=== PATIENT | male | born 1965 | race Caucasian/White ===

== ENCOUNTER 2019-04-18 13:15 | Inpatient (IN) | payer OTHER ==
[2019-04-18] MEDS ORDERED: NORMAL SALINE 1000 ML 1,000 ML IV ONE ×2 (14:25→16:19)
[2019-04-18] MEDS ORDERED: ONDANSETRON HCL INJ/PF 4 MG/2 ML SDV IV ONE (14:26)
--- NOTE | 2019-04-18 14:29 | ER Document Report ---
ED Medical Screen (RME) - General Chief Complaint: High Blood Sugar Stated Complaint: NAUSEA Time Seen by Provider: 04/18/19 14:23 Mode of Arrival: Ambulatory Information source: Patient Notes: 53-year-old male presented to ED for elevated blood sugar nausea and vomiting dizziness sleeplessness. He went to the urgent care at the blood sugar at that time was 320 with ketones in his urine of 80 and sugar in his urine 500. He states he has been nausea and vomiting not keeping anything down and is been sleepless for several days. Patient was sent over here by the urgent care for his elevated blood sugar. Will order labs IV fluids and monitoring. I have greeted and performed a rapid initial assessment of this patient. A comprehensive ED assessment and evaluation of the patient, analysis of test results and completion of medical decision making process will be conducted by an additional ED providers. Physical Exam - Vital signs Vitals: Temp Pulse Resp BP Pulse Ox 97.8 F 109 H 18 157/92 H 96 04/18/19 13:45 04/18/19 13:45 04/18/19 13:45 04/18/19 13:45 04/18/19 13:45 Course - Vital Signs Vital signs: Temp Pulse Resp BP Pulse Ox 97.8 F 109 H 18 157/92 H 96 04/18/19 13:45 04/18/19 13:45 04/18/19 13:45 04/18/19 13:45 04/18/19 13:45
[2019-04-18 15:07] LABS: VENOUS BLOOD BASE EXCESS -1.7 mmol/L; VENOUS BLOOD PCO2 49.5 mmHg (35-63); VENOUS BLOOD PH 7.32 (7.30-7.42)
[2019-04-18 15:09] LABS: APPEARANCE,URINE CLEAR; BILIRUBIN,URINE NEGATIVE (NEGATIVE); COLOR,URINE YELLOW; GLUCOSE, URINE >=500 mg/dL (NEGATIVE); KETONES,URINE 80 mg/dL (NEGATIVE); LEUKOCYTE ESTERASE,URINE NEGATIVE (NEGATIVE); NITRITE,URINE NEGATIVE (NEGATIVE); PROTEIN,URINE NEGATIVE (NEGATIVE); URINE SPECIFIC GRAVITY 1.028; UROBILINOGEN,URINE NEGATIVE mg/dL (<2.0)
--- NOTE | 2019-04-18 15:16 | ER Document Report ---
ED General <NICK MENSAH Umer - Last Filed: 04/18/19 18:30> - General Mode of Arrival: Ambulatory Information source: Patient TRAVEL OUTSIDE OF THE [place] IN LAST 30 DAYS: No - HPI Onset: Other Onset/Duration: Persistent Quality of pain: Achy, Pressure Associated symptoms: Headache, Nausea, Vomiting, Shortness of breath Exacerbated by: Denies Relieved by: Denies Similar symptoms previously: Yes Recently seen / treated by doctor: Yes <KELLY CAZARES - Last Filed: 04/18/19 19:04> - General Chief Complaint: High Blood Sugar Stated Complaint: NAUSEA Time Seen by Provider: 04/18/19 14:23 Primary Care Provider: GIULIANA KRUEGER MD [Primary Care Provider] - Follow up as needed Notes: 53-year-old male with history of diabetes presents emergency department with complaints of nausea and vomiting for the past 4 days. He gives history of approximately 6 weeks ago his left shoulder started hurting he is been to the chiropractor and now is having some back pain. He also reports that around he started having a migraine. He reports he has been having trouble sleeping been taking 4 Tylenol PM's at night trying to go to sleep. C/O some constipation even though he has done an enema and stool softener. Complains of urinary frequency complains of feeling dizzy and at times short of breath. Reports he has a history of DKA once but was never admitted for it. (KELLY CAZARES) - Related Data Allergies/Adverse Reactions: No Known Allergies Allergy (Verified 04/18/19 18:20) Past Medical History - General Information source: Patient - Social History Smoking Status: Current Every Day Smoker Cigarette use (# per day): Yes Frequency of alcohol use: None Drug Abuse: None Lives with: Family Family History: DM Patient has suicidal ideation: No Patient has homicidal ideation: No Endocrine Medical History: Reports: Hx Diabetes Mellitus Type 2 Past Surgical History: Reports: Hx Orthopedic Surgery <KELLY CAZARES - Last Filed: 04/18/19 19:04> Review of Systems <KELLY CAZARES - Last Filed: 04/18/19 19:04> - Review of Systems Notes: Review HPI for review of systems., All other systems negative (KELLY CAZARES) Physical Exam - General General appearance: Alert In distress: None - HEENT Head: Normocephalic Eyes: Normal Conjunctiva: Normal Extraocular movements intact: Yes Eyelashes: Normal Pupils: PERRL Ears: Normal External canal: Normal Tympanic membrane: Normal Mouth/Lips: Normal Mucous membranes: Dry Pharynx: Normal. No: Erythema Neck: Normal, Supple. No: Lymphadenopathy - Respiratory Respiratory status: No respiratory distress Chest status: Nontender Breath sounds: Normal Chest palpation: Normal - Cardiovascular Rhythm: Regular Heart sounds: Normal auscultation Murmur: No - Abdominal Inspection: Normal Distension: No distension Bowel sounds: Hypoactive Tenderness: Tender - low abd pain Organomegaly: No organomegaly - Extremities General upper extremity: Normal ROM General lower extremity: Normal ROM - Neurological Neuro grossly intact: Yes Cognition: Normal Orientation: AAOx4 Sandi Coma Scale Eye Opening: Spontaneous [place] Coma Scale Verbal: Oriented [place] Coma Scale Motor: Obeys Commands [place] Coma Scale Total: 15 Speech: Normal - Psychological Associated symptoms: Normal affect, Normal mood - Skin Skin Temperature: Warm Skin Moisture: Dry Skin Color: Normal <KELLY CAZARES - Last Filed: 04/18/19 19:04> - Vital signs Vitals: Temp Pulse Resp BP Pulse Ox 97.8 F 109 H 18 157/92 H 96 04/18/19 13:45 04/18/19 13:45 04/18/19 13:45 04/18/19 13:45 04/18/19 13:45 Course - Laboratory Result Diagrams: 04/18/19 14:55 04/18/19 14:55 <NICK MENSAH - Last Filed: 04/18/19 18:30> - Laboratory Result Diagrams: 04/18/19 14:55 04/18/19 14:55 - EKG Interpretation by Co EKG shows normal: Sinus rhythm Rate: Tachycardia <KELLY CAZARES - Last Filed: 04/18/19 19:04> - Re-evaluation Re-evalutation: 04/18/19 18:45 53 YEAR OLD male with history of DM presents with c/o shoulder, back pain, headache for several weeks with n/v and lower abdominal painfor the past 4 days. He was seen at urgent care today for dizzines, elevated glucose, n/v, advised to come to the ED. Pt's pcp is giuliana Krueger at [place]. . Leukocytosis at 15.5 with calcium 13.7, consulted dr mathews who advised lasix, added lipase, CT. Consulted hospitalist shae segura for admission for hypercalc emia. He advised hold lasix at this time. He will come to the ED. Pt updated regarding plan of care, he agree's with admission. Also reports his headache decreasing since medications. 04/18/19 19:02 04/18/19 14:55 04/18/19 14:55 MCV 90 fl (80-97) 04/18/19 14:55 MCH 30.1 pg (27.0-33.4) 04/18/19 14:55 MCHC 33.6 g/dL (32.0-36.0) 04/18/19 14:55 RDW 14.9 % (11.5-14.0) H 04/18/19 14:55 Seg Neutrophils % 87.0 % (42-78) H 04/18/19 14:55 VBG pH 7.32 (7.30-7.42) 04/18/19 14:55 VBG pCO2 49.5 mmHg (35-63) 04/18/19 14:55 VBG HCO3 25.0 mmol/L (20-32) 04/18/19 14:55 VBG Base Excess -1.7 mmol/L 04/18/19 14:55 Chloride 97 mmol/L (98-107) L 04/18/19 14:55 Carbon Dioxide 26 mmol/L (22-30) 04/18/19 14:55 Anion Gap 16 (5-19) 04/18/19 14:55 Est GFR ( Amer) > 60 (>60) 04/18/19 14:55 Glucose 303 mg/dL (75-110) H 04/18/19 14:55 Calcium 13.7 mg/dL (8.4-10.2) H* 04/18/19 14:55 Total Bilirubin 2.3 mg/dL (0.2-1.3) H 04/18/19 14:55 AST 54 U/L (17-59) 04/18/19 14:55 Alkaline Phosphatase 129 U/L (38-126) H 04/18/19 14:55 Total Protein 8.3 g/dL (6.3-8.2) H 04/18/19 14:55 Albumin 4.5 g/dL (3.5-5.0) 04/18/19 14:55 Lipase 116.7 U/L (23-300) 04/18/19 13:11 Urine Color YELLOW 04/18/19 14:55 Urine Appearance CLEAR 04/18/19 14:55 Urine pH 5.0 (5.0-9.0) 04/18/19 14:55 Ur Specific [place] 1.028 04/18/19 14:55 Urine Protein NEGATIVE mg/dL (NEGATIVE) 04/18/19 14:55 Urine Glucose (UA) >=500 mg/dL (NEGATIVE) H 04/18/19 14:55 Urine Ketones 80 mg/dL (NEGATIVE) H 04/18/19 14:55 Urine Blood NEGATIVE (NEGATIVE) 04/18/19 14:55 Urine Nitrite NEGATIVE (NEGATIVE) 04/18/19 14:55 Ur Leukocyte Esterase NEGATIVE (NEGATIVE) 04/18/19 14:55 Urine WBC (Auto) 1 /HPF 04/18/19 14:55 Urine RBC (Auto) 0 /HPF 04/18/19 14:55 04/18/19 14:55 Troponin I 0.025 (KELLY CAZARES) - Vital Signs Vital signs: Temp Pulse Resp BP Pulse Ox 97.8 F 109 H 24 H 157/92 H 95 04/18/19 16:00 04/18/19 13:45 04/18/19 18:00 04/18/19 13:45 04/18/19 18:00 - Laboratory Laboratory results interpreted by me: 04/18/19 04/18/19 04/18/19 14:47 14:55 14:55 WBC 15.0 H RDW 14.9 H Lymph % (Auto) 8.9 L Absolute Neuts (auto) 13.1 H Seg Neutrophils % 87.0 H Chloride 97 L Glucose 303 H POC Glucose 298 H Calcium 13.7 H* Total Bilirubin 2.3 H Direct Bilirubin 1.2 H Alkaline Phosphatase 129 H Total Protein 8.3 H Urine Glucose (UA) Urine Ketones 04/18/19 04/18/19 14:55 18:00 WBC RDW Lymph % (Auto) Absolute Neuts (auto) Seg Neutrophils % Chloride Glucose POC Glucose 205 H Calcium Total Bilirubin Direct Bilirubin Alkaline Phosphatase Total Protein Urine Glucose (UA) >=500 H Urine Ketones 80 H - EKG Interpretation by Me Additional EKG results interpreted by me: 04/18/19 15:[address] elevation no T wave inversion (KELLY CAZARES) Discharge - Discharge Admitting Provider: Esther (Hospitalist) Unit Admitted: [facility] <NICK MENSAH - Last Filed: 04/18/19 18:30> - Discharge Admitting Provider: Esther (Hospitalist) Unit Admitted: [facility] <KELLY CAZARES - Last Filed: 04/18/19 19:04> - Discharge Clinical Impression: Hypercalcemia Condition: Stable Disposition: ADMITTED INPATIENT Referrals: GIULIANA KRUEGER MD [Primary Care Provider] - Follow up as needed
[2019-04-18 15:24] LABS: ALBUMIN 4.5 g/dL (3.5-5.0); ALKALINE PHOSPHATASE 129 U/L (38-126); ANION GAP 16 (5-19); ASPARTATE AMINO TRANSFERASE 54 U/L (17-59); BILIRUBIN,DIRECT 1.2 mg/dL (0.0-0.4); BILIRUBIN,TOTAL 2.3 mg/dL (0.2-1.3); BLOOD UREA NITROGEN 18 mg/dL (7-20); CARBON DIOXIDE 26 mmol/L (22-30); CHLORIDE 97 mmol/L (98-107); GLUCOSE 303 mg/dL (75-110); POTASSIUM 4.9 mmol/L (3.6-5.0); TOTAL PROTEIN 8.3 g/dL (6.3-8.2)
[2019-04-18 15:27] LABS: ABSOLUTE BASOPHILS # (AUTO) 0.1 10^3/uL (0.0-0.2); ABSOLUTE LYMPHOCYTES (AUTO) 1.3 10^3/uL (0.5-4.7); ABSOLUTE MONOCYTES (AUTO) 0.5 10^3/uL (0.1-1.4); ABSOLUTE NEUT (AUTO) 13.1 10^3/uL (1.7-8.2); BASOPHILS % (AUTO) 0.4 % (0-2); EOSINOPHILS % (AUTO) 0.1 % (0-6); HEMATOCRIT 45.3 % (37.9-51.0); HEMOGLOBIN 15.2 g/dL (13.5-17.0); LYMPHOCYTES % (AUTO) 8.9 % (13-45); MEAN CORPUSCULAR HEMOGLOBIN 30.1 pg (27.0-33.4); MEAN CORPUSCULAR HGB CONC 33.6 g/dL (32.0-36.0); MEAN CORPUSCULAR VOLUME 90 fl (80-97); MONOCYTES % (AUTO) 3.6 % (3-13); PLATELET COUNT 270 10^3/uL (150-450); RED BLOOD COUNT 5.05 10^6/uL (4.35-5.55); RED CELL DISTRIBUTION WIDTH 14.9 % (11.5-14.0); TOTAL CELLS COUNTED % (AUTO) 100 %
[2019-04-18 15:33] LABS: CALCIUM 13.7 mg/dL (8.4-10.2)
[2019-04-18] MEDS ORDERED: METOCLOPRAMIDE HCL INJ/PF 10 MG/2 ML SDV IV ONE (16:34)
[2019-04-18] MEDS ORDERED: DIPHENHYDRAMINE HCL 50 MG/ML VIAL IV ONE (16:34)
[2019-04-18] MEDS ORDERED: KETOROLAC TROMETHAMINE INJ/PF 30 MG/1 ML SDV IV ONE (16:34)
--- NOTE | 2019-04-18 17:28 | RADIOLOGY REPORT (SQ) ---
EXAM DESCRIPTION: CHEST SINGLE VIEW COMPLETED DATE/TIME: 04/18/2019 5:13 pm REASON FOR STUDY: sob COMPARISON: None. EXAM PARAMETERS: NUMBER OF VIEWS: One view. TECHNIQUE: Single frontal radiographic view of the chest acquired. RADIATION DOSE: NA LIMITATIONS: None. FINDINGS: LUNGS AND PLEURA: Minimal blunting left lateral costophrenic sulcus. Lungs are otherwise clear. No pneumothorax. No gross pleural effusions. MEDIASTINUM AND HILAR STRUCTURES: No masses. Contour normal. HEART AND VASCULAR STRUCTURES: Heart normal in size. Normal vasculature. BONES: No acute findings. HARDWARE: None in the chest. OTHER: No other significant finding. IMPRESSION: Minimal atelectasis at the left lung base. TECHNICAL DOCUMENTATION: JOB ID: [id number] [employer]- All Rights Reserved Reading location - IP/workstation name: [email or web address]
--- NOTE | 2019-04-18 17:45 | EKG REPORT ---
SEVERITY:- OTHERWISE NORMAL ECG - SINUS TACHYCARDIA : Confirmed by: David Steel MD 18-Apr-2019 17:44:52
[2019-04-18] MEDS ORDERED: TEMAZEPAM 15 MG CAPSULE PO PRN (18:02)
[2019-04-18] MEDS ORDERED: MAG HYDROX/AL HYDROX/SIMETH SUSP 30 ML UDCUP PO PRN (18:02)
[2019-04-18] MEDS ORDERED: NORMAL SALINE 1000 ML 1,000 ML IV PRN (18:02)
[2019-04-18] MEDS ORDERED: ACETAMINOPHEN 325 MG TABLET PO PRN (18:02)
[2019-04-18] MEDS ORDERED: DEXTROSE 50%-WATER 25 GM/50 ML DISP.SYRIN IV PRN ×2 (18:16)
[2019-04-18] MEDS ORDERED: GLUCAGON,HUMAN RECOMB 1 MG INJ IM PRN (18:16)
[2019-04-18] MEDS ORDERED: DEXTROSE 40% GEL 15 GM TUBE PO PRN ×2 (18:16)
[2019-04-18] MEDS: OXYCODONE-ACETAMINOPHEN 5-325 MG TABLET PO PRN ×2 (18:20→22:12)
--- NOTE | 2019-04-18 18:24 | PDOC H&P ---
History of Present Illness Admission Date/PCP: 04/18/2019 ROSARIO KRUEGER Patient complains of: High blood sugar, nausea History of Present Illness: ÁNGELA WANG is a 53 year old male who presents the ER from his primary care practitioner with nausea vomiting for last 4 days. States he has having some generalized aches and pains has been running a fever. Was found to have a calcium of 13.7. Has complained of urinary frequency his blood sugar was 300 in the ER. Patient states he has been in DKA one time. He had no treatment prior to arrival no triggering factors. Past Medical History Endocrine Medical History: Reports: Diabetes Mellitus Type 2 Past Surgical History Past Surgical History: Reports: None Social History Information Source: Patient Lives with: Family Smoking Status: Current Every Day Smoker Electronic Cigarette use?: No Frequency of Alcohol Use: None Hx Recreational Drug Use: No Drugs: None Hx Prescription Drug Abuse: No - Advance Directive Resuscitation Status: Full Code Family History Family History: DM Parental Family History Reviewed: Yes Children Family History Reviewed: Yes Sibling(s) Family History Reviewed.: Yes Medication/Allergy Allergies/Adverse Reactions: No Known Allergies Allergy (Verified 04/18/19 18:20) Review of Systems Constitutional: PRESENT: fever(s), headache(s), weakness. ABSENT: chills, weight gain, weight loss Eyes: ABSENT: visual disturbances Ears: ABSENT: hearing changes Cardiovascular: ABSENT: chest pain, dyspnea on exertion, edema, orthropnea, palpitations Respiratory: ABSENT: cough, hemoptysis Gastrointestinal: PRESENT: nausea, vomiting. ABSENT: abdominal pain, constipation, diarrhea, hematemesis, hematochezia Genitourinary: ABSENT: dysuria, hematuria Musculoskeletal: ABSENT: joint swelling Integumentary: ABSENT: rash, wounds Neurological: ABSENT: abnormal gait, abnormal speech, confusion, dizziness, focal weakness, syncope Psychiatric: ABSENT: anxiety, depression, homidical ideation, suicidal ideation Endocrine: ABSENT: cold intolerance, heat intolerance, polydipsia, polyuria Hematologic/Lymphatic: ABSENT: easy bleeding, easy bruising Physical Exam Vital Signs: Temp Pulse Resp BP Pulse Ox 97.8 F 109 H 24 H 157/92 H 95 04/18/19 13:45 04/18/19 13:45 04/18/19 18:00 04/18/19 13:45 04/18/19 18:00 Intake & Output 04/17/19 04/18/19 04/19/19 06:59 06:59 06:59 Intake Total 1000 Balance 1000 Weight 96 kg General appearance: PRESENT: no acute distress, well-developed, well-nourished Head exam: PRESENT: atraumatic, normocephalic Eye exam: PRESENT: conjunctiva pink, EOMI, PERRLA. ABSENT: scleral icterus Ear exam: PRESENT: normal external ear exam Mouth exam: PRESENT: moist, tongue midline Neck exam: ABSENT: carotid bruit, JVD, lymphadenopathy, thyromegaly Respiratory exam: PRESENT: clear to auscultation jamar. ABSENT: rales, rhonchi, wheezes Cardiovascular exam: PRESENT: RRR. ABSENT: diastolic murmur, rubs, systolic murmur Pulses: PRESENT: normal dorsalis pedis pul Vascular exam: PRESENT: normal capillary refill GI/Abdominal exam: PRESENT: normal bowel sounds, soft. ABSENT: distended, guarding, mass, organolmegaly, rebound, tenderness Rectal exam: PRESENT: deferred Extremities exam: PRESENT: full ROM. ABSENT: calf tenderness, clubbing, pedal edema Neurological exam: PRESENT: alert, awake, oriented to person, oriented to place, oriented to time, oriented to situation, CN II-XII grossly intact. ABSENT: motor sensory deficit Psychiatric exam: PRESENT: appropriate affect, normal mood. ABSENT: homicidal ideation, suicidal ideation Skin exam: PRESENT: dry, intact, warm. ABSENT: cyanosis, rash Results Laboratory Results: 04/18/19 14:55 04/18/19 14:55 04/18/19 04/18/19 04/18/19 14:55 14:55 14:55 WBC 15.0 H RBC 5.05 Hgb 15.2 Hct 45.3 MCV 90 MCH 30.1 MCHC 33.6 RDW 14.9 H Plt Count 270 Seg Neutrophils % 87.0 H VBG pH 7.32 VBG pCO2 49.5 VBG HCO3 25.0 VBG Base Excess -1.7 Sodium 139.3 Potassium 4.9 Chloride 97 L Carbon Dioxide 26 Anion Gap 16 BUN 18 Creatinine 0.63 Est GFR ( Amer) > 60 Glucose 303 H Calcium 13.7 H* Total Bilirubin 2.3 H AST 54 Alkaline Phosphatase 129 H Total Protein 8.3 H Albumin 4.5 Urine Color Urine Appearance Urine pH Ur Specific [place] Urine Protein Urine Glucose (UA) Urine Ketones Urine Blood Urine Nitrite Ur Leukocyte Esterase Urine WBC (Auto) Urine RBC (Auto) 04/18/19 14:55 WBC RBC Hgb Hct MCV MCH MCHC RDW Plt Count Seg Neutrophils % VBG pH VBG pCO2 VBG HCO3 VBG Base Excess Sodium Potassium Chloride Carbon Dioxide Anion Gap BUN Creatinine Est GFR ( Amer) Glucose Calcium Total Bilirubin AST Alkaline Phosphatase Total Protein Albumin Urine Color YELLOW Urine Appearance CLEAR Urine pH 5.0 Ur Specific [place] 1.028 Urine Protein NEGATIVE Urine Glucose (UA) >=500 H Urine Ketones 80 H Urine Blood NEGATIVE Urine Nitrite NEGATIVE Ur Leukocyte Esterase NEGATIVE Urine WBC (Auto) 1 Urine RBC (Auto) 0 04/18/19 14:55 Troponin I 0.025 Impressions: Chest X-Ray 04/18/19 16:36 IMPRESSION: Minimal atelectasis at the left lung base. Assessment and Plan - Diagnosis (1) Hypercalcemia Is this a current diagnosis for this admission?: Yes Plan: 04/18/2019-continue hydrate normal saline 125 mL an hour. Calcitonin 400 mg IM every 12 hours I will obtain a ionized calcium and a intact PTH with vitamin D 1,25 daily. Will await results make change plan of care as appropriate will obtain CT with IV contrast of brain, chest, abdomen pelvis. I will send off a serum protein electrophoresis as patient does have an elevated total protein. (2) Elevated total protein Is this a current diagnosis for this admission?: Yes Plan: 04/18/2019-serum protein electrophoresis consult oncology as needed (3) Fever Is this a current diagnosis for this admission?: Yes Plan: 04/18/2019-rapid flu a/b (4) Type 2 diabetes mellitus Is this a current diagnosis for this admission?: Yes Plan: 04/18/2019-carbohydrate controlled diet. Sliding scale insulin before meals and at bedtime. We will continue home medications once reconciliation is complete - Time Time Spent with patient: 35 or more minutes - Inpatient Certification Based on my medical assessment, after consideration of the patient's comorbidities, presenting symptoms, or acuity I expect that the services needed warrant INPATIENT care.: Yes I certify that my determination is in accordance with my understanding of Medicare's requirements for reasonable and necessary INPATIENT services [42 CFR 412.3e].: Yes Medical Necessity: Significant Comorbidiites Make Outpatient Treatment Too Risky, Need Close Monitoring Due to Risk of Patient Decompensation, Need For IV Fluids
[2019-04-18] MEDS: CALCITONIN,SALMON,SYNTHETIC 400 UNIT/2 ML VIAL IM SCH (18:53)
--- NOTE | 2019-04-18 19:43 | RADIOLOGY REPORT (SQ) ---
EXAM DESCRIPTION: CT CHEST WITH COMPLETED DATE/TIME: 04/18/2019 7:30 pm REASON FOR STUDY: hypercalcemia COMPARISON: None. TECHNIQUE: CT scan of the chest performed using helical scanning technique with dynamic intravenous contrast injection. Images reviewed with lung, soft tissue and bone windows. Reconstructed coronal and sagittal MPR and MIP images reviewed. All images stored on PACS. All CT scanners at this facility use dose modulation, iterative reconstruction, and/or weight based d osing when appropriate to reduce radiation dose to as low as reasonably achievable (ALARA). [facility]: Dose Right [facility]: CareDose [facility]: Dose Right [facility]: Teradose 4D [facility]: Nanali CONTRAST TYPE AND DOSE: 100 cc Omnipaque 350 RENAL FUNCTION: Creatinine 0.63 RADIATION DOSE: . LIMITATIONS: None. FINDINGS: LUNGS AND PLEURA: Multifocal centrilobular nodular and ground-glass opacities throughout b oth lungs, greatest within the left upper right lower lobe. Small bilateral pleural effusions. No p neumothorax. HILAR AND MEDIASTINAL STRUCTURES: Shotty mediastinal and hilar a lymph nodes. There is a enlarged ri ght hilar node measuring 11 mm in short axis (series 7, image 23). HEART AND VASCULAR STRUCTURES: No pericardial effusion. Normal heart size. No significant coronary atherosclerosis. HARDWARE: None in the chest. UPPER ABDOMEN: See separate report of the CT of the abdomen. THYROID AND OTHER SOFT TISSUES: No masses. No adenopathy. BONES: No acute bony abnormality. No discrete lytic or blastic osseous lesions. OTHER: No other significant finding. IMPRESSION: 1. Multifocal scattered centrilobular nodular and ground-glass opacities throughout bot h lungs favored to represent multifocal infectious/inflammatory process. Recommend follow-up CT to e nsure no underlying lesion. Small bilateral effusions. 2. Shotty mediastinal nodes, likely reactive. 3. See same-day abdomen CT for findings below the diaphragm. TECHNICAL DOCUMENTATION: JOB ID: [id number] Quality ID # [id number]: Final reports with documentation of one or more dose reduction techniques (e.g., Au tomated exposure control, adjustment of the mA and/or kV according to patient size, use of iterative reconstruction technique) 2010 [employer]- All Rights Reserved Reading location - IP/workstation name: [email or web address]
--- NOTE | 2019-04-18 19:54 | RADIOLOGY REPORT (SQ) ---
EXAM DESCRIPTION: CT ABD/PELVIS WITH IV ONLY COMPLETED DATE/TIME: 04/18/2019 7:30 pm REASON FOR STUDY: hypercalcemia COMPARISON: None. TECHNIQUE: CT scan of the abdomen and pelvis performed using helical scanning technique with dynamic intravenous contrast injection. No oral contrast. Images reviewed with lung, soft tissue, and bone windows. Reconstructed coronal and sagittal MPR images reviewed. Delayed images for evaluation of the urinary system also acquired. All images stored on PACS. All CT scanners at this facility use dose modulation, iterative reconstruction, and/or weight based d osing when appropriate to reduce radiation dose to as low as reasonably achievable (ALARA). [facility]: Dose Right [facility]: CareDose [facility]: Dose Right [facility]: Teradose 4D [facility]: [employer] CONTRAST TYPE AND DOSE: contrast/concentration: Isovue 350.00 mg/ml; Total Contrast Delivered: 100.0 ml; Total Saline Delivered: 72.0 ml RENAL FUNCTION: See chest RADIATION DOSE: . LIMITATIONS: None. FINDINGS: LOWER CHEST: See separate report of the CT of the chest. LIVER: Irregular area of hypoattenuation involving the posterior right hepatic dome measuring up to 7 .0 cm (series 2, image 43). No additional discrete hepatic lesions. No intrahepatic ductal dilation . Nodular hepatic contour. SPLEEN: Splenomegaly measuring up to 17 cm. No focal lesions. PANCREAS: No masses. No significant calcifications. No adjacent inflammation or peripancreatic fluid collections. Pancreatic duct not dilated. GALLBLADDER: Decompressed. No radiopaque stones. ADRENAL GLANDS: No significant masses or asymmetry. RIGHT KIDNEY AND URETER: No solid masses. No significant calcifications. No hydronephrosis or hyd roureter. LEFT KIDNEY AND URETER: No solid masses. No significant calcifications. No hydronephrosis or hydr oureter. AORTA AND VESSELS: No aneurysm. No dissection. Renal arteries, SMA, celiac without stenosis. RETROPERITONEUM: Retroperitoneal adenopathy. For reference there is in para-aortic node at the level of the renal arteries measuring 12 mm short axis (series 7, image 71). Additional enlarged lymph no moiz within the delgado hepatis, largest measuring up to 25 mm in short axis (series 7, image 63). No r etroperitoneal hemorrhage. BOWEL AND PERITONEAL CAVITY: Area of focal bowel wall thickening at the cecal (series 7, image 88). No evidence of intestinal obstruction. No additional focal areas of bowel wall thickening. Scattere d colonic diverticula. APPENDIX: Normal. PELVIS: Unremarkable urinary bladder. Pelvic ascites. ABDOMINAL WALL: No masses. No hernias. BONES: No significant or acute findings. OTHER: No other significant finding. IMPRESSION: 1. Questionable soft tissue density at the level of the cecum moderately suspicious for malignancy. Recommend correlation with colonoscopic history. 2. Retroperitoneal adenopathy highly suspicious for metastatic disease. 3. Cirrhotic hepatic morphology with splenomegaly and small volume ascites. Hypoattenuating lesion within the right hepatic dome measuring 7 cm, also suspicious for metastatic disease, versus primary hepatic malignancy. Multiphase hepatic protocol CT or MRI could be considered for further characteri zation. TECHNICAL DOCUMENTATION: JOB ID: [id number] Quality ID # [id number]: Final reports with documentation of one or more dose reduction techniques (e.g., Au tomated exposure control, adjustment of the mA and/or kV according to patient size, use of iterative reconstruction technique) 2010 [employer]- All Rights Reserved Reading location - IP/workstation name: [email or web address]
--- NOTE | 2019-04-18 19:55 | RADIOLOGY REPORT (SQ) ---
EXAM DESCRIPTION: CT HEAD COMBO COMPLETED DATE/TIME: 04/18/2019 7:30 pm REASON FOR STUDY: hypercalcemia COMPARISON: None. TECHNIQUE: Axial images acquired through the brain without and with intravenous contrast. Images re viewed with bone, brain and subdural windows. Additional sagittal and coronal reconstructions were g enerated. Images stored on PACS. All CT scanners at this facility use dose modulation, iterative reconstruction, and/or weight based d osing when appropriate to reduce radiation dose to as low as reasonably achievable (ALARA). [facility]: Dose Right [facility]: CareDose [facility]: Dose Right [facility]: Teradose 4D [facility]: Clinicient CONTRAST TYPE AND DOSE: 100 mL of IV Omnipaque 350- low osmolar. RENAL FUNCTION: Creatinine 0.6 RADIATION DOSE: CT Rad equipment meets quality standard of care and radiation dose reduction techniq ues were employed. CTDIvol: 9.6 - 53.2 mGy. DLP: 3951 mGy-cm.. LIMITATIONS: None. FINDINGS: VENTRICLES: Normal size and contour. CEREBRUM: No masses. No hemorrhage. No midline shift. Normal thomas/white matter differentiation. No ev idence for acute infarction. No enhancing lesions. CEREBELLUM: No masses. No hemorrhage. No alteration of density. No evidence for acute infarction. No enhancing lesions. EXTRA-AXIAL SPACES: No fluid collections. No enhancing lesions. ORBITS AND GLOBE: No intra- or extraconal masses. Normal contour of globe without masses. CALVARIUM: No fracture. PARANASAL SINUSES: No fluid or mucosal thickening. SOFT TISSUES: No mass or hematoma. OTHER: No other significant finding. IMPRESSION: NORMAL BRAIN CT WITHOUT AND WITH CONTRAST. EVIDENCE OF ACUTE STROKE: NO. TECHNICAL DOCUMENTATION: JOB ID: [id number] Quality ID # [id number]: Final reports with documentation of one or more dose reduction techniques (e.g., Au tomated exposure control, adjustment of the mA and/or kV according to patient size, use of iterative reconstruction technique) 2010 [employer]- All Rights Reserved Reading location - IP/workstation name: [email or web address]
[2019-04-18 20:54] LABS: A TYPE INFLUENZA AG NEGATIVE (NEGATIVE); B INFLUENZA AG NEGATIVE (NEGATIVE)
[2019-04-18] MEDS: ONDANSETRON HCL INJ/PF 4 MG/2 ML SDV IV PRN (22:12)
[2019-04-18] MEDS: HEPARIN SOD (PORCINE) 5,000 UNIT/ML 1 ML VIAL SUBCUT SCH (22:12)
[2019-04-18] MEDS: INSULIN REG, HUMAN 100 UNIT/ML 3 ML VIAL (PYX) SUBCUT SCH (22:12)
[2019-04-19] MEDS: OXYCODONE-ACETAMINOPHEN 5-325 MG TABLET PO PRN ×3 (04:37→20:14)
[2019-04-19] MEDS ORDERED: CALCITONIN,SALMON,SYNTHETIC 400 UNIT/2 ML VIAL ONE (04:46)
[2019-04-19] MEDS: HEPARIN SOD (PORCINE) 5,000 UNIT/ML 1 ML VIAL SUBCUT SCH (05:58)
[2019-04-19] MEDS: CALCITONIN,SALMON,SYNTHETIC 400 UNIT/2 ML VIAL IM SCH (06:00)
[2019-04-19 06:25] LABS: HEMATOCRIT 39.5 % (37.9-51.0); HEMOGLOBIN 13.6 g/dL (13.5-17.0); MEAN CORPUSCULAR HEMOGLOBIN 30.5 pg (27.0-33.4); MEAN CORPUSCULAR HGB CONC 34.5 g/dL (32.0-36.0); MEAN CORPUSCULAR VOLUME 89 fl (80-97); PLATELET COUNT 202 10^3/uL (150-450); RED BLOOD COUNT 4.46 10^6/uL (4.35-5.55); RED CELL DISTRIBUTION WIDTH 15.1 % (11.5-14.0); WHITE BLOOD COUNT 12.4 10^3/uL (4.0-10.5)
[2019-04-19 06:47] LABS: PHOSPHORUS 2.3 mg/dL (2.5-4.5)
[2019-04-19 08:35] LABS: ABSOLUTE RETICS # 0.121 10^6/uL (0.028-0.122); RETICULOCYTE COUNT (AUTO) 2.77 % (0.66-2.85)
[2019-04-19 08:43] LABS: IRON(TIBC) 62.5 ug/dL (49-181)
--- NOTE | 2019-04-19 08:50 | PDOC PROGRESS REPORT ---
Subjective Progress Note for:: 04/19/19 Subjective:: 04/19/2019-no complaints this a.m. Reason For Visit: HYPERGLYCEMIA Physical Exam Vital Signs: Temp Pulse Resp BP Pulse Ox 98.3 F 96 18 154/90 H 95 04/19/19 07:43 04/19/19 07:43 04/19/19 07:43 04/19/19 07:43 04/19/19 07:43 Intake & Output 04/18/19 04/19/19 04/20/19 06:59 06:59 06:59 Intake Total 1250 Output Total 1 Balance 1249 Weight 95.8 kg General appearance: PRESENT: no acute distress, well-developed, well-nourished Neck exam: ABSENT: carotid bruit, JVD, lymphadenopathy, thyromegaly Respiratory exam: PRESENT: clear to auscultation jamar. ABSENT: rales, rhonchi, wheezes Cardiovascular exam: PRESENT: RRR. ABSENT: diastolic murmur, rubs, systolic murmur Pulses: PRESENT: normal dorsalis pedis pul Vascular exam: PRESENT: normal capillary refill GI/Abdominal exam: PRESENT: normal bowel sounds, soft. ABSENT: distended, guarding, mass, organolmegaly, rebound, tenderness Rectal exam: PRESENT: deferred Extremities exam: PRESENT: full ROM. ABSENT: calf tenderness, clubbing, pedal edema Neurological exam: PRESENT: alert, awake, oriented to person, oriented to place, oriented to time, oriented to situation, CN II-XII grossly intact. ABSENT: motor sensory deficit Psychiatric exam: PRESENT: appropriate affect, normal mood. ABSENT: homicidal ideation, suicidal ideation Skin exam: PRESENT: dry, intact, warm. ABSENT: cyanosis, rash Results Laboratory Results: 04/19/19 05:23 04/18/19 04/18/19 04/18/19 13:11 13:11 14:55 WBC 15.0 H RBC 5.05 Hgb 15.2 Hct 45.3 MCV 90 MCH 30.1 MCHC 33.6 RDW 14.9 H Plt Count 270 Seg Neutrophils % 87.0 H Retic Count (auto) VBG pH VBG pCO2 VBG HCO3 VBG Base Excess Sodium Potassium Chloride Carbon Dioxide Anion Gap BUN Creatinine Est GFR ( Amer) Glucose Calcium Ionized Calcium Flora Phosphorus Magnesium Total Bilirubin AST Alkaline Phosphatase Total Protein Albumin Lipase 116.7 PTH Intact 6.7 L Urine Color Urine Appearance Urine pH Ur Specific [place] Urine Protein Urine Glucose (UA) Urine Ketones Urine Blood Urine Nitrite Ur Leukocyte Esterase Urine WBC (Auto) Urine RBC (Auto) 04/18/19 04/18/19 04/18/19 14:55 14:55 14:55 WBC RBC Hgb Hct MCV MCH MCHC RDW Plt Count Seg Neutrophils % Retic Count (auto) VBG pH 7.32 VBG pCO2 49.5 VBG HCO3 25.0 VBG Base Excess -1.7 Sodium 139.3 Potassium 4.9 Chloride 97 L Carbon Dioxide 26 Anion Gap 16 BUN 18 Creatinine 0.63 Est GFR ( Amer) > 60 Glucose 303 H Calcium 13.7 H* Ionized Calcium Flora Phosphorus Magnesium Total Bilirubin 2.3 H AST 54 Alkaline Phosphatase 129 H Total Protein 8.3 H Albumin 4.5 Lipase PTH Intact Urine Color YELLOW Urine Appearance CLEAR Urine pH 5.0 Ur Specific [place] 1.028 Urine Protein NEGATIVE Urine Glucose (UA) >=500 H Urine Ketones 80 H Urine Blood NEGATIVE Urine Nitrite NEGATIVE Ur Leukocyte Esterase NEGATIVE Urine WBC (Auto) 1 Urine RBC (Auto) 0 04/18/19 04/19/19 04/19/19 18:58 05:23 05:23 WBC 12.4 H RBC 4.46 Hgb 13.6 Hct 39.5 MCV 89 MCH 30.5 MCHC 34.5 RDW 15.1 H Plt Count 202 Seg Neutrophils % Retic Count (auto) VBG pH VBG pCO2 VBG HCO3 VBG Base Excess Sodium Potassium Chloride Carbon Dioxide Anion Gap BUN Creatinine Est GFR ( Amer) Glucose Calcium Ionized Calcium Flora 1.52 H Phosphorus 2.3 L Magnesium 1.7 Total Bilirubin AST Alkaline Phosphatase Total Protein Albumin Lipase PTH Intact Urine Color Urine Appearance Urine pH Ur Specific [place] Urine Protein Urine Glucose (UA) Urine Ketones Urine Blood Urine Nitrite Ur Leukocyte Esterase Urine WBC (Auto) Urine RBC (Auto) 04/19/19 05:23 WBC RBC Hgb Hct MCV MCH MCHC RDW Plt Count Seg Neutrophils % Retic Count (auto) 2.77 VBG pH VBG pCO2 VBG HCO3 VBG Base Excess Sodium Potassium Chloride Carbon Dioxide Anion Gap BUN Creatinine Est GFR ( Amer) Glucose Calcium Ionized Calcium Flora Phosphorus Magnesium Total Bilirubin AST Alkaline Phosphatase Total Protein Albumin Lipase PTH Intact Urine Color Urine Appearance Urine pH Ur Specific [place] Urine Protein Urine Glucose (UA) Urine Ketones Urine Blood Urine Nitrite Ur Leukocyte Esterase Urine WBC (Auto) Urine RBC (Auto) 04/18/19 14:55 Troponin I 0.025 Impressions: Abdomen/Pelvis CT 04/18/19 00:00 IMPRESSION: 1. Questionable soft tissue density at the level of the cecum moderately suspicious for malignancy. Recommend correlation with colonoscopic history. 2. Retroperitoneal adenopathy highly suspicious for metastatic disease. 3. Cirrhotic hepatic morphology with splenomegaly and small volume ascites. Hypoattenuating lesion within the right hepatic dome measuring 7 cm, also suspicious for metastatic disease, versus primary hepatic malignancy. Multiphase hepatic protocol CT or MRI could be considered for further characterization. Chest CT 04/18/19 00:00 IMPRESSION: 1. Multifocal scattered centrilobular nodular and ground-glass opacities throughout both lungs favored to represent multifocal infectious/inflammatory process. Recommend follow-up CT to ensure no underlying lesion. Small bilateral effusions. 2. Shotty mediastinal nodes, likely reactive. 3. See same-day abdomen CT for findings below the diaphragm. Head CT 04/18/19 00:00 IMPRESSION: NORMAL BRAIN CT WITHOUT AND WITH CONTRAST. EVIDENCE OF ACUTE STROKE: NO. Chest X-Ray 04/18/19 16:36 IMPRESSION: Minimal atelectasis at the left lung base. Assessment and Plan - Diagnosis (1) Hypercalcemia Is this a current diagnosis for this admission?: Yes Plan: 04/18/2019-continue hydrate normal saline 125 mL an hour. Calcitonin 400 mg IM every 12 hours I will obtain a ionized calcium and a intact PTH with vitamin D 1,25 daily. Will await results make change plan of care as appropriate will obtain CT with IV contrast of brain, chest, abdomen pelvis. I will send off a serum protein electrophoresis as patient does have an elevated total protein. 04/19/2019-awaiting a.m. labs. Patient did show a large mass in his liver most suspicious for liver neoplasm. Also multiple lesions throughout abdomen pelvis for which I am running further test. I have consulted Dr. Anat shultz oncology. I am obtaining a alpha-fetoprotein level, CEA and CA [address] abdomen pelvis with oral contrast only an MRI of the liver. Will await further recommendations per oncology and findings of further diagnostics. (2) Elevated total protein Is this a current diagnosis for this admission?: Yes Plan: 04/18/2019-serum protein electrophoresis consult oncology as needed 04/19/2019-await serum protein electrophoresis. Oncology has been consulted (3) Fever Is this a current diagnosis for this admission?: Yes Plan: 04/18/2019-rapid flu a/b 04/19/2019-improved. (4) Type 2 diabetes mellitus Is this a current diagnosis for this admission?: Yes Plan: 04/18/2019-carbohydrate controlled diet. Sliding scale insulin before meals and at bedtime. We will continue home medications once reconciliation is complete 04/19/2019-better controlled at this time. Continue slight scale insulin before meals and at bedtime - Time Time Spent with patient: 15-24 minutes - Inpatient Certification Based on my medical assessment, after consideration of the patient's comorbidit ies, presenting symptoms, or acuity I expect that the services needed warrant INPATIENT care.: Yes I certify that my determination is in accordance with my understanding of [employer]'s requirements for reasonable and necessary INPATIENT services [42 CFR 412.3e].: Yes Medical Necessity: Significant Comorbidiites Make Outpatient Treatment Too Risky, Need Close Monitoring Due to Risk of Patient Decompensation, Need For IV Fluids, Need for Pain Control
[2019-04-19] MEDS: INSULIN REG, HUMAN 100 UNIT/ML 3 ML VIAL (PYX) SUBCUT SCH ×4 (08:55→21:56)
--- NOTE | 2019-04-19 09:17 | PDOC CONSULTATION ---
Consultation Consult Date: 04/19/19 Attending physician:: JESS MEJIA Provider Consulted: SONNY GUILLEN Consult reason:: Liver lesion, retroperitoneal adenopathy History of Present Illness Admission Date/PCP: 04/18/19 19:16 ROSARIO KRUEGER Patient complains of: Back pain, liver lesion, retroperitoneal adenopathy History of Present Illness: ÁNGELA WANG is a 53 year old male with recent severe mid back pain, some increase in abdominal girth, also increasing constipation over the last few weeks and over the last few days has not been able to have a major bowel movement. He has known heavy drinking history, was an alcoholic for many years prior to quitting 15 years ago. Upon presentation he had a calcium level of 13, and CT of the chest abdomen pelvis does indicate a large liver metastasis 7 cm, retroperitoneal adenopathy, enlarged lymph nodes within the delgado hepatis up to 2.5 cm, focal area of bowel thickening in the cecum. There is also a right hilar node. He has an MRI of the liver pending to better characterize the 7 cm mass, to make sure it is not a hemangioma. I have also ordered a bone scan this morning. Past Medical History Endocrine Medical History: Reports: Diabetes Mellitus Type 2 Past Surgical History Past Surgical History: Reports: None, Orthopedic Surgery Social History Lives with: Family Smoking Status: Current Every Day Smoker Electronic Cigarette use?: No Frequency of Alcohol Use: Occasional Hx Recreational Drug Use: No Drugs: None Hx Prescription Drug Abuse: No - Advance Directive Resuscitation Status: Full Code Family History Family History: DM Parental Family History Reviewed: Yes Children Family History Reviewed: Yes Sibling(s) Family History Reviewed.: Yes Medication/Allergy Home Medications: Glipizide [Glucotrol] 10 mg PO BID 04/18/19 Metformin HCl [Glucophage XR 500 mg Tablet] 1,000 mg PO BIDBS 04/18/19 Allergies/Adverse Reactions: No Known Allergies Allergy (Verified 04/18/19 18:20) Review of Systems Constitutional: ABSENT: chills, fever(s), headache(s), weight gain, weight loss Eyes: ABSENT: visual disturbances Ears: ABSENT: hearing changes Cardiovascular: ABSENT: chest pain, dyspnea on exertion, edema, orthropnea, palpitations Respiratory: ABSENT: cough, hemoptysis Gastrointestinal: ABSENT: abdominal pain, constipation, diarrhea, hematemesis, hematochezia, nausea, vomiting Genitourinary: ABSENT: dysuria, hematuria Musculoskeletal: ABSENT: joint swelling Integumentary: ABSENT: rash, wounds Neurological: ABSENT: abnormal gait, abnormal speech, confusion, dizziness, focal weakness, syncope Psychiatric: ABSENT: anxiety, depression, homidical ideation, suicidal ideation Endocrine: ABSENT: cold intolerance, heat intolerance, polydipsia, polyuria Hematologic/Lymphatic: ABSENT: easy bleeding, easy bruising Physical Exam Vital Signs: Temp Pulse Resp BP Pulse Ox 98.3 F 96 18 154/90 H 95 04/19/19 07:43 04/19/19 07:43 04/19/19 07:43 04/19/19 07:43 04/19/19 07:43 Intake & Output 04/18/19 04/19/19 04/20/19 06:59 06:59 06:59 Intake Total 1250 Output Total 1 Balance 1249 Weight 95.8 kg General appearance: PRESENT: no acute distress, well-developed, well-nourished Head exam: PRESENT: atraumatic, normocephalic Eye exam: PRESENT: conjunctiva pink, EOMI, PERRLA. ABSENT: scleral icterus Ear exam: PRESENT: normal external ear exam Mouth exam: PRESENT: moist, tongue midline Neck exam: ABSENT: carotid bruit, JVD, lymphadenopathy, thyromegaly Respiratory exam: PRESENT: clear to auscultation jamar. ABSENT: rales, rhonchi, wheezes Cardiovascular exam: PRESENT: RRR. ABSENT: diastolic murmur, rubs, systolic mur mur Pulses: PRESENT: normal dorsalis pedis pul Vascular exam: PRESENT: normal capillary refill GI/Abdominal exam: PRESENT: normal bowel sounds, soft. ABSENT: distended, guarding, mass, organolmegaly, rebound, tenderness Rectal exam: PRESENT: deferred Extremities exam: PRESENT: full ROM. ABSENT: calf tenderness, clubbing, pedal edema Neurological exam: PRESENT: alert, awake, oriented to person, oriented to place, oriented to time, oriented to situation, CN II-XII grossly intact. ABSENT: motor sensory deficit Psychiatric exam: PRESENT: appropriate affect, normal mood. ABSENT: homicidal ideation, suicidal ideation Skin exam: PRESENT: dry, intact, warm. ABSENT: cyanosis, rash Results Laboratory Results: 04/19/19 05:23 04/18/19 04/18/19 04/18/19 13:11 13:11 14:55 WBC 15.0 H RBC 5.05 Hgb 15.2 Hct 45.3 MCV 90 MCH 30.1 MCHC 33.6 RDW 14.9 H Plt Count 270 Seg Neutrophils % 87.0 H Retic Count (auto) VBG pH VBG pCO2 VBG HCO3 VBG Base Excess Sodium Potassium Chloride Carbon Dioxide Anion Gap BUN Creatinine Est GFR ( Amer) Glucose Calcium Ionized Calcium Flora Phosphorus Magnesium Total Bilirubin AST Alkaline Phosphatase Total Protein Albumin Lipase 116.7 PTH Intact 6.7 L Urine Color Urine Appearance Urine pH Ur Specific [place] Urine Protein Urine Glucose (UA) Urine Ketones Urine Blood Urine Nitrite Ur Leukocyte Esterase Urine WBC (Auto) Urine RBC (Auto) 04/18/19 04/18/19 04/18/19 14:55 14:55 14:55 WBC RBC Hgb Hct MCV MCH MCHC RDW Plt Count Seg Neutrophils % Retic Count (auto) VBG pH 7.32 VBG pCO2 49.5 VBG HCO3 25.0 VBG Base Excess -1.7 Sodium 139.3 Potassium 4.9 Chloride 97 L Carbon Dioxide 26 Anion Gap 16 BUN 18 Creatinine 0.63 Est GFR ( Amer) > 60 Glucose 303 H Calcium 13.7 H* Ionized Calcium Flora Phosphorus Magnesium Total Bilirubin 2.3 H AST 54 Alkaline Phosphatase 129 H Total Protein 8.3 H Albumin 4.5 Lipase PTH Intact Urine Color YELLOW Urine Appearance CLEAR Urine pH 5.0 Ur Specific [place] 1.028 Urine Protein NEGATIVE Urine Glucose (UA) >=500 H Urine Ketones 80 H Urine Blood NEGATIVE Urine Nitrite NEGATIVE Ur Leukocyte Esterase NEGATIVE Urine WBC (Auto) 1 Urine RBC (Auto) 0 04/18/19 04/19/19 04/19/19 18:58 05:23 05:23 WBC 12.4 H RBC 4.46 Hgb 13.6 Hct 39.5 MCV 89 MCH 30.5 MCHC 34.5 RDW 15.1 H Plt Count 202 Seg Neutrophils % Retic Count (auto) VBG pH VBG pCO2 VBG HCO3 VBG Base Excess Sodium Potassium Chloride Carbon Dioxide Anion Gap BUN Creatinine Est GFR ( Amer) Glucose Calcium Ionized Calcium Flora 1.52 H Phosphorus 2.3 L Magnesium 1.7 Total Bilirubin AST Alkaline Phosphatase Total Protein Albumin Lipase PTH Intact Urine Color Urine Appearance Urine pH Ur Specific [place] Urine Protein Urine Glucose (UA) Urine Ketones Urine Blood Urine Nitrite Ur Leukocyte Esterase Urine WBC (Auto) Urine RBC (Auto) 04/19/19 05:23 WBC RBC Hgb Hct MCV MCH MCHC RDW Plt Count Seg Neutrophils % Retic Count (auto) 2.77 VBG pH VBG pCO2 VBG HCO3 VBG Base Excess Sodium Potassium Chloride Carbon Dioxide Anion Gap BUN Creatinine Est GFR ( Amer) Glucose Calcium Ionized Calcium Flora Phosphorus Magnesium Total Bilirubin AST Alkaline Phosphatase Total Protein Albumin Lipase PTH Intact Urine Color Urine Appearance Urine pH Ur Specific [place] Urine Protein Urine Glucose (UA) Urine Ketones Urine Blood Urine Nitrite Ur Leukocyte Esterase Urine WBC (Auto) Urine RBC (Auto) 04/18/19 14:55 Troponin I 0.025 Impressions: Abdomen/Pelvis CT 04/18/19 00:00 IMPRESSION: 1. Questionable soft tissue density at the level of the cecum moderately suspicious for malignancy. Recommend correlation with colonoscopic history. 2. Retroperitoneal adenopathy highly suspicious for metastatic disease. 3. Cirrhotic hepatic morphology with splenomegaly and small volume ascites. Hypoattenuating lesion within the right hepatic dome measuring 7 cm, also suspicious for metastatic disease, versus primary hepatic malignancy. Multiphase hepatic protocol CT or MRI could be considered for further characterization. Chest CT 04/18/19 00:00 IMPRESSION: 1. Multifocal scattered centrilobular nodular and ground-glass opacities throughout both lungs favored to represent multifocal infectious/inflammatory process. Recommend follow-up CT to ensure no underlying lesion. Small bilateral effusions. 2. Shotty mediastinal nodes, likely reactive. 3. See same-day abdomen CT for findings below the diaphragm. Head CT 04/18/19 00:00 IMPRESSION: NORMAL BRAIN CT WITHOUT AND WITH CONTRAST. EVIDENCE OF ACUTE STROKE: NO. Chest X-Ray 04/18/19 16:36 IMPRESSION: Minimal atelectasis at the left lung base. Status: Image reviewed by me Assessment & Plan - Diagnosis (1) Liver mass Is this a current diagnosis for this admission?: Yes Plan: Concern of cancer, with cecal thickening, concerned this may be a primary colon cancer with metastasis to liver, but given the drinking history could be a primary hepatocellular carcinoma as well, plan for MRI of the liver, if this shows biopsy is possible of the liver, plan to do that tomorrow. Instead if it shows that this is a hemangioma or a regenerating liver nodule then we need to prep him for colonoscopy and get surgery or gastroenterology to do colonoscopy tomorrow. I discussed this with hospitalist team who will take this forward. I have also ordered a whole-body bone scan and this will be done tomorrow per nuclear medicine. They will need to coordinate with the other radiologic procedures that may be needed tomorrow. - Time Time Spent: Greater than 70 Minutes - Inpatient Certification Based on my medical assessment, after consideration of the patient's com orbidities, presenting symptoms, or acuity I expect that the services needed warrant INPATIENT care.: Yes I certify that my determination is in accordance with my understanding of Medicare's requirements for reasonable and necessary INPATIENT services [42 CFR 412.3e].: Yes Medical Necessity: Need for Surgery, Risk of Complication if Not Cared For in Hospital
[2019-04-19 09:22] LABS: ANION GAP 9 (5-19); BLOOD UREA NITROGEN 16 mg/dL (7-20); CALCIUM 10.6 mg/dL (8.4-10.2); CARBON DIOXIDE 25 mmol/L (22-30); CHLORIDE 101 mmol/L (98-107); GLUCOSE 197 mg/dL (75-110); POTASSIUM 4.2 mmol/L (3.6-5.0)
[2019-04-19] MEDS ORDERED: POTASSIUM PHOS,M-BASIC-D-BASIC 30 MMOL in NORMAL SALINE 500 ML IV ONE (09:30)
[2019-04-19 09:52] LABS: FOLATE 7.66 ng/mL (>2.76)
[2019-04-19] MEDS: PEG 3350/NA SULF,BICARB,CL/KCL 4000 ML PO ONE ×2 (10:13→16:47)
--- NOTE | 2019-04-19 10:37 | RADIOLOGY REPORT (SQ) ---
EXAM DESCRIPTION: MRI ABDOMEN COMBO COMPLETED DATE/TIME: 04/19/2019 9:49 am REASON FOR STUDY: malignancy COMPARISON: None. TECHNIQUE: Multiplanar multisequence imaging performed without and with contrast including sagittal, axial and coronal T2, axial T1, axial gradient fat sat T1, axial, sagittal and coronal fat sat T1 po st contrast. CONTRAST TYPE AND DOSE: 20 mL Dotarem. RENAL FUNCTION: Not indicated. ACR Type II contrast agent associated with few, if any, unconfounded cases of NSF LIMITATIONS: None. FINDINGS: LIVER: Nodular contour. Enhancing mass in the posterior right lobe near the dome of the d iaphragm. Indistinct margins. Approximate transverse measurement 7 to 9 cm. No dilated ducts. CBD normal. SPLEEN: Normal size. No focal lesions. PANCREAS: No masses. No adjacent inflammation or peripancreatic fluid collections. Pancreatic duct no t dilated. GALLBLADDER: No masses. No stones. No gallbladder wall thickening or pericholecystic fluid. ADRENAL GLANDS: No significant masses or asymmetry. RIGHT KIDNEY AND URETER: No masses. No hydronephrosis. LEFT KIDNEY AND URETER: No masses. No hydronephrosis. AORTA AND VESSELS: No aneurysm. No dissection. Renal arteries, SMA, celiac without stenosis. RETROPERITONEUM: No retroperitoneal adenopathy, hemorrhage or masses. BOWEL: No visualized masses. No inflammation. No significant dilatation. ABDOMINAL WALL AND PERITONEUM: No hernias. Free fluid in the upper abdomen. Small pleural effusions . BONES: No acute or significant findings. OTHER: No other significant finding. IMPRESSION: 1. NODULAR CONTOUR OF THE LIVER SUSPICIOUS FOR CIRRHOSIS. LARGE ENHANCING MASS SUSPICIOUS FOR MALIGN URI. MAY BE PRIMARY OR LESS LIKELY METASTATIC. 2. ASCITES. SMALL PLEURAL EFFUSIONS. TECHNICAL DOCUMENTATION: JOB ID: [id number]- All Rights Reserved Reading location - IP/workstation name: [email or web address]-
[2019-04-20] MEDS: OXYCODONE-ACETAMINOPHEN 5-325 MG TABLET PO PRN ×3 (03:35→20:02)
[2019-04-20 06:08] LABS: HEMATOCRIT 40.2 % (37.9-51.0); MEAN CORPUSCULAR HEMOGLOBIN 30.9 pg (27.0-33.4); MEAN CORPUSCULAR HGB CONC 34.9 g/dL (32.0-36.0); MEAN CORPUSCULAR VOLUME 89 fl (80-97); PLATELET COUNT 188 10^3/uL (150-450); RED BLOOD COUNT 4.54 10^6/uL (4.35-5.55); WHITE BLOOD COUNT 11.8 10^3/uL (4.0-10.5)
[2019-04-20 07:51] LABS: INTERNATIONAL RATION (INR) 1.03; PROTHROMBIN TIME 13.5 SEC (11.4-15.4)
[2019-04-20 07:52] LABS: PARTIAL THROMBOPLASTIN TIME 27.2 SEC (23.5-35.8)
[2019-04-20] MEDS: INSULIN REG, HUMAN 100 UNIT/ML 3 ML VIAL (PYX) SUBCUT SCH ×4 (08:19→22:22)
[2019-04-20 08:37] LABS: HEPATITS B SURFACE ANTIGEN Negative (Negative)
--- NOTE | 2019-04-20 08:38 | PDOC PROGRESS REPORT ---
Subjective Progress Note for:: 04/20/19 Subjective:: Had a long discussion with patient as well as radiology today. Spent about 45 minutes in discussion. Radiology feels that the liver is not easily accessible because it sitting right under the diaphragm, because of the ascites as well as the close proximity to the diaphragm, pneumothorax is a high risk. Therefore they felt that going after the retroperitoneal adenopathy that was evident on the CT, would be a safer route. Also, they will do a paracentesis and send the fluid for cytology as well. The patient himself has not had a bowel movement for several days so we were planning on doing an enema today. But ultimately he will need a colonoscopy as well. Reason For Visit: HYPERGLYCEMIA Physical Exam Vital Signs: Temp Pulse Resp BP Pulse Ox 97.7 F 102 H 16 149/83 H 95 04/20/19 08:02 04/20/19 08:02 04/20/19 08:02 04/20/19 08:02 04/20/19 08:02 Intake & Output 04/19/19 04/20/19 04/21/19 06:59 06:59 06:59 Intake Total 1250 1700 Output Total 1 4 Balance 1249 1696 Weight 95.8 kg 96.1 kg General appearance: PRESENT: no acute distress, well-developed, well-nourished Head exam: PRESENT: atraumatic, normocephalic Eye exam: PRESENT: conjunctiva pink, EOMI, PERRLA. ABSENT: scleral icterus Ear exam: PRESENT: normal external ear exam Mouth exam: PRESENT: moist, tongue midline Neck exam: ABSENT: carotid bruit, JVD, lymphadenopathy, thyromegaly Respiratory exam: PRESENT: clear to auscultation jamar. ABSENT: rales, rhonchi, wheezes Cardiovascular exam: PRESENT: RRR. ABSENT: diastolic murmur, rubs, systolic murmur Pulses: PRESENT: normal dorsalis pedis pul Vascular exam: PRESENT: normal capillary refill GI/Abdominal exam: PRESENT: normal bowel sounds, soft. ABSENT: distended, guarding, mass, organolmegaly, rebound, tenderness Rectal exam: PRESENT: deferred Extremities exam: PRESENT: full ROM. ABSENT: calf tenderness, clubbing, pedal edema Neurological exam: PRESENT: alert, awake, oriented to person, oriented to place, oriented to time, oriented to situation, CN II-XII grossly intact. ABSENT: motor sensory deficit Psychiatric exam: PRESENT: appropriate affect, normal mood. ABSENT: homicidal ideation, suicidal ideation Skin exam: PRESENT: dry, intact, warm. ABSENT: cyanosis, rash Results Laboratory Results: 04/20/19 05:39 04/19/19 07:44 04/19/19 04/19/19 04/19/19 05:23 07:44 07:44 WBC RBC Hgb Hct MCV MCH MCHC RDW Plt Count Retic Count (auto) 2.77 Sodium 134.9 L Potassium 4.2 Chloride 101 Carbon Dioxide 25 Anion Gap 9 BUN 16 Creatinine 0.58 Est GFR ( Amer) > 60 Glucose 197 H Calcium 10.6 H Iron 62.5 TIBC 282 % Saturation 22 Ferritin 469.00 H Vitamin B12 > 1000.0 H Folate 7.66 04/20/19 05:39 WBC 11.8 H RBC 4.54 Hgb 14.0 Hct 40.2 MCV 89 MCH 30.9 MCHC 34.9 RDW 15.0 H Plt Count 188 Retic Count (auto) Sodium Potassium Chloride Carbon Dioxide Anion Gap BUN Creatinine Est GFR ( Amer) Glucose Calcium Iron TIBC % Saturation Ferritin Vitamin B12 Folate 04/18/19 14:55 Troponin I 0.025 Impressions: Abdomen/Pelvis CT 04/18/19 00:00 IMPRESSION: 1. Questionable soft tissue density at the level of the cecum moderately suspicious for malignancy. Recommend correlation with colonoscopic history. 2. Retroperitoneal adenopathy highly suspicious for metastatic disease. 3. Cirrhotic hepatic morphology with splenomegaly and small volume ascites. Hypoattenuating lesion within the right hepatic dome measuring 7 cm, also suspicious for metastatic disease, versus primary hepatic malignancy. Multiphase hepatic protocol CT or MRI could be considered for further characterization. Chest CT 04/18/19 00:00 IMPRESSION: 1. Multifocal scattered centrilobular nodular and ground-glass opacities throughout both lungs favored to represent multifocal infectious/inflammatory process. Recommend follow-up CT to ensure no underlying lesion. Small bilateral effusions. 2. Shotty mediastinal nodes, likely reactive. 3. See same-day abdomen CT for findings below the diaphragm. Head CT 04/18/19 00:00 IMPRESSION: NORMAL BRAIN CT WITHOUT AND WITH CONTRAST. EVIDENCE OF ACUTE STROKE: NO. Chest X-Ray 04/18/19 16:36 IMPRESSION: Minimal atelectasis at the left lung base. Abdomen MRI 04/19/19 06:40 IMPRESSION: 1. NODULAR CONTOUR OF THE LIVER SUSPICIOUS FOR CIRRHOSIS. LARGE ENHANCING MASS SUSPICIOUS FOR MALIGNANCY. MAY BE PRIMARY OR LESS LIKELY METASTATIC. 2. ASCITES. SMALL PLEURAL EFFUSIONS. Status: Image reviewed by me Assessment & Plan - Diagnosis (1) Liver mass Is this a current diagnosis for this admission?: Yes Plan: Overall picture to me concerning more for a primary colon cancer with me tastasis, tissue confirmation of the metastasis would be beneficial because that would stage him at 4. But ultimately a colonoscopy and biopsy of the cecum would be also useful. I have explained this to the patient and he is understanding of this. - Time Time Spent with patient: 35 or more minutes
--- NOTE | 2019-04-20 09:05 | PDOC PROGRESS REPORT ---
Subjective Progress Note for:: 04/20/19 Subjective:: 04/19/2019-no complaints this a.m. 04/20/2019-no complaints Reason For Visit: HYPERGLYCEMIA Physical Exam Vital Signs: Temp Pulse Resp BP Pulse Ox 97.7 F 102 H 16 149/83 H 95 04/20/19 08:02 04/20/19 08:02 04/20/19 08:02 04/20/19 08:02 04/20/19 08:02 Intake & Output 04/19/19 04/20/19 04/21/19 06:59 06:59 06:59 Intake Total 1250 1700 Output Total 1 4 Balance 1249 1696 Weight 95.8 kg 96.1 kg General appearance: PRESENT: no acute distress, well-developed, well-nourished Head exam: PRESENT: atraumatic, normocephalic Eye exam: PRESENT: conjunctiva pink, EOMI, PERRLA. ABSENT: scleral icterus Ear exam: PRESENT: normal external ear exam Mouth exam: PRESENT: moist, tongue midline Neck exam: ABSENT: carotid bruit, JVD, lymphadenopathy, thyromegaly Respiratory exam: PRESENT: clear to auscultation jamar. ABSENT: rales, rhonchi, wheezes Cardiovascular exam: PRESENT: RRR. ABSENT: diastolic murmur, rubs, systolic murmur Pulses: PRESENT: normal dorsalis pedis pul Vascular exam: PRESENT: normal capillary refill GI/Abdominal exam: PRESENT: normal bowel sounds, soft. ABSENT: distended, guarding, mass, organolmegaly, rebound, tenderness Rectal exam: PRESENT: deferred Extremities exam: PRESENT: full ROM. ABSENT: calf tenderness, clubbing, pedal edema Neurological exam: PRESENT: alert, awake, oriented to person, oriented to place, oriented to time, oriented to situation, CN II-XII grossly intact. ABSENT: motor sensory deficit Psychiatric exam: PRESENT: appropriate affect, normal mood. ABSENT: homicidal ideation, suicidal ideation Skin exam: PRESENT: dry, intact, warm. ABSENT: cyanosis, rash Results Laboratory Results: 04/20/19 05:39 04/19/19 07:44 04/19/19 04/19/19 04/20/19 07:44 07:44 05:39 WBC 11.8 H RBC 4.54 Hgb 14.0 Hct 40.2 MCV 89 MCH 30.9 MCHC 34.9 RDW 15.0 H Plt Count 188 Sodium 134.9 L Potassium 4.2 Chloride 101 Carbon Dioxide 25 Anion Gap 9 BUN 16 Creatinine 0.58 Est GFR ( Amer) > 60 Glucose 197 H Calcium 10.6 H Iron 62.5 TIBC 282 % Saturation 22 Ferritin 469.00 H Vitamin B12 > 1000.0 H Folate 7.66 04/18/19 14:55 Troponin I 0.025 Impressions: Abdomen/Pelvis CT 04/18/19 00:00 IMPRESSION: 1. Questionable soft tissue density at the level of the cecum m oderately suspicious for malignancy. Recommend correlation with colonoscopic history. 2. Retroperitoneal adenopathy highly suspicious for metastatic disease. 3. Cirrhotic hepatic morphology with splenomegaly and small volume ascites. Hypoattenuating lesion within the right hepatic dome measuring 7 cm, also suspicious for metastatic disease, versus primary hepatic malignancy. Multiphase hepatic protocol CT or MRI could be considered for further characterization. Chest CT 04/18/19 00:00 IMPRESSION: 1. Multifocal scattered centrilobular nodular and ground-glass opacities throughout both lungs favored to represent multifocal infectious/inflammatory process. Recommend follow-up CT to ensure no underlying lesion. Small bilateral effusions. 2. Shotty mediastinal nodes, likely reactive. 3. See same-day abdomen CT for findings below the diaphragm. Head CT 04/18/19 00:00 IMPRESSION: NORMAL BRAIN CT WITHOUT AND WITH CONTRAST. EVIDENCE OF ACUTE STROKE: NO. Chest X-Ray 04/18/19 16:36 IMPRESSION: Minimal atelectasis at the left lung base. Abdomen MRI 04/19/19 06:40 IMPRESSION: 1. NODULAR CONTOUR OF THE LIVER SUSPICIOUS FOR CIRRHOSIS. LARGE ENHANCING MASS SUSPICIOUS FOR MALIGNANCY. MAY BE PRIMARY OR LESS LIKELY METASTATIC. 2. ASCITES. SMALL PLEURAL EFFUSIONS. Assessment and Plan - Diagnosis (1) Hypercalcemia Is this a current diagnosis for this admission?: Yes Plan: 04/18/2019-continue hydrate normal saline 125 mL an hour. Calcitonin 400 mg IM every 12 hours I will obtain a ionized calcium and a intact PTH with vitamin D 1,25 daily. Will await results make change plan of care as appropriate will obtain CT with IV contrast of brain, chest, abdomen pelvis. I will send off a serum protein electrophoresis as patient does have an elevated total protein. 04/19/2019-awaiting a.m. labs. Patient did show a large mass in his liver most suspicious for liver neoplasm. Also multiple lesions throughout abdomen pelvis for which I am running further test. I have consulted Dr. Anat shultz oncology. I am obtaining a alpha-fetoprotein level, CEA and CA [address] abdomen pelvis with oral contrast only an MRI of the liver. Will await further recommendations per oncology and findings of further diagnostics. 04/20/2019-improved. Calcium is 10.6. Large mass especially liver neoplasm will have CT-guided biopsy today. Patient also undergo bone scan. Await findings and further recommendations per oncology (2) Elevated total protein Is this a current diagnosis for this admission?: Yes Plan: 04/18/2019-serum protein electrophoresis consult oncology as needed 04/19/2019-await serum protein electrophoresis. Oncology has been consulted 04/20/2019-serum protein electrophoresis are pending (3) Fever Is this a current diagnosis for this admission?: Yes Plan: 04/18/2019-rapid flu a/b 04/19/2019-improved. 04/20/2019 resolved stable (4) Type 2 diabetes mellitus Is this a current diagnosis for this admission?: Yes Plan: 04/18/2019-carbohydrate controlled diet. Sliding scale insulin before meals and at bedtime. We will continue home medications once reconciliation is complete 04/19/2019-better controlled at this time. Continue slight scale insulin before meals and at bedtime 04/20/2019-stable - Time Time Spent with patient: 15-24 minutes - Inpatient Certification Based on my medical assessment, after consideration of the patient's comorbidities, presenting symptoms, or acuity I expect that the services needed warrant INPATIENT care.: Yes I certify that my determination is in accordance with my understanding of Medicare's requirements for reasonable and necessary INPATIENT services [42 CFR 412.3e].: Yes Medical Necessity: Significant Comorbidiites Make Outpatient Treatment Too Risky, Need Close Monitoring Due to Risk of Patient Decompensation
[2019-04-20 10:32] LABS: AFP SERUM TUMOR MARKER 3.1 ng/mL (0.0-8.3)
[2019-04-20 10:33] LABS: HEPATITIS C VIRUS ANTIBODY >11.0 s/co ratio (0.0-0.9)
--- NOTE | 2019-04-20 11:31 | RADIOLOGY REPORT (SQ) ---
EXAM DESCRIPTION: NM WHOLE BODY BONE SCAN COMPLETED DATE/TIME: 04/20/2019 11:15 am REASON FOR STUDY: Bone METS COMPARISON: CT and MR body imaging from recently. RADIONUCLIDE AND DOSE: 20.3 millicuries Tc99m MDP. The route of agent administration: Intravenous. ADDITIONAL DRUGS AND DOSES: None. TECHNIQUE: Routine delayed images at 3 hour post radionuclide injection acquired of the bony skeleto n including anterior and posterior whole-body projections and additional focused images as needed. LIMITATIONS: None. FINDINGS: BONES: Normal visualization without areas of photopenia or increased bony uptake of radiop harmaceutical. KIDNEYS: Symmetric excretion without obstruction. OTHER: No other significant finding. IMPRESSION: NORMAL BONE SCAN. COMMENT: Quality measure 147: Current bone scan is compared with any available plain radiographs, p rior bone scans, and CT/MRI. TECHNICAL DOCUMENTATION: JOB ID: [id number] [employer]- All Rights Reserved Reading location - IP/workstation name: [email or web address]
[2019-04-20] MEDS: ONDANSETRON HCL INJ/PF 4 MG/2 ML SDV IV PRN (12:05)
[2019-04-20] MEDS ORDERED: MIDAZOLAM 2 MG/2 ML INJ ONE (12:59)
[2019-04-20] MEDS ORDERED: FENTANYL CITRATE INJ/PF 100 MCG/2 ML AMPUL ONE (12:59)
[2019-04-20] MEDS ORDERED: LIDOCAINE 1% INJ-PF (10 MG/ML) 30 ML SDV ONE (13:58)
--- NOTE | 2019-04-20 14:42 | RADIOLOGY REPORT (SQ) ---
EXAM DESCRIPTION: CT BIOPSY ABD/RETROPERIT MASS; CT ABD PARACENTESIS INITIAL; CT NEEDLE PLACEMENT COMPLETED DATE/TIME: 04/20/2019 2:12 pm; 04/20/2019 2:30 pm REASON FOR STUDY: LIVER MASS, METS; ABDOMINAL ASCITES; LYMPH NODE BIOPSY COMPARISON: CT dated 04/18/2019 TECHNIQUE: CT guided biopsy of the right retroperitoneal lymph node performed with conscious sedatio n. CT Fluoroscopy Time: 17.[address] scanners at this facility use dose modulation, iterative reconstruction, and/or weight based d osing when appropriate to reduce radiation dose to as low as reasonably achievable (ALARA). [facility]: Dose Right [facility]: CareDose [facility]: Dose Right [facility]: Teradose 4D [facility]: [employer] RADIATION DOSE: mGy. FINDINGS: After obtaining informed consent and explaining the risks and benefits of conscious sedati on,the patient agreed to the procedure. Prior to the procedure, a time out was performed to verify th e patient's identity and planned procedure. IV sedation was administered and physician direction by the registered nurse using 2.0 milligrams of Versed and 100 micrograms of fentanyl, for conscious sedation. Physiologic monitoring was provided be fore, during, and after sedation. The total sedation time was 47 minutes. Documentation face to face time, the performing proceduralist, spent monitoring the patient: [address] scanning was performed to localize the percutaneous site for the biopsy approach. After sterile skin prep and local lidocaine for skin and deep tissue anesthesia, a coaxial biopsy nee dle was used to obtain multiple cores of tissue. The biopsy tissue was submitted to the lab in forma marisela. There were no immediate complications. Pathology is pending at the time of dictation. Following the retroperitoneal biopsy pocket of ascites was localized in the left lower quadrant. Ski n was sterilely prepped and draped. 1% lidocaine was used for local anesthesia. Using a [employer] esis system the fluid collection was cannulated. There was immediate return of clear straw-colored f luid. 2000 mL of fluid was removed and sent to pathology for evaluation. There were no complication s. IMPRESSION: 1. Successful CT-guided biopsy of the left retroperitoneal lymph node. 2. Successful CT-guided paracentesis as described. Pathology is pending. COMMENT: Quality ID 145: Final reports for procedures using fluoroscopy that document radiation exp osure indices, or exposure time and number of fluorographic images (if radiation exposure indices are not available) Patient medication list reviewed: Yes- Quality ID# [id number]:Eligible professional attests to documenting i n the medical record they obtained, updated, or reviewed the patient's current medications.. TECHNICAL DOCUMENTATION: JOB ID: [id number] Quality ID# [id number]: Final reports with documentation of one or more dose reduction techniques (e.g., Aut omated exposure control, adjustment of the mA and/or kV according to patient size, use of iterative r econstruction technique) 2010 [employer]- All Rights Reserved Reading location - IP/workstation name: [email or web address]
--- NOTE | 2019-04-20 14:42 | RADIOLOGY REPORT (SQ) ---
EXAM DESCRIPTION: CT BIOPSY ABD/RETROPERIT MASS; CT ABD PARACENTESIS INITIAL; CT NEEDLE PLACEMENT COMPLETED DATE/TIME: 04/20/2019 2:12 pm; 04/20/2019 2:30 pm REASON FOR STUDY: LIVER MASS, METS; ABDOMINAL ASCITES; LYMPH NODE BIOPSY COMPARISON: CT dated 04/18/2019 TECHNIQUE: CT guided biopsy of the right retroperitoneal lymph node performed with conscious sedatio n. CT Fluoroscopy Time: 17.[address] scanners at this facility use dose modulation, iterative reconstruction, and/or weight based d osing when appropriate to reduce radiation dose to as low as reasonably achievable (ALARA). [facility]: Dose Right [facility]: CareDose [facility]: Dose Right [facility]: Teradose 4D [facility]: [employer] RADIATION DOSE: mGy. FINDINGS: After obtaining informed consent and explaining the risks and benefits of conscious sedati on,the patient agreed to the procedure. Prior to the procedure, a time out was performed to verify th e patient's identity and planned procedure. IV sedation was administered and physician direction by the registered nurse using 2.0 milligrams of Versed and 100 micrograms of fentanyl, for conscious sedation. Physiologic monitoring was provided be fore, during, and after sedation. The total sedation time was 47 minutes. Documentation face to face time, the performing proceduralist, spent monitoring the patient: [address] scanning was performed to localize the percutaneous site for the biopsy approach. After sterile skin prep and local lidocaine for skin and deep tissue anesthesia, a coaxial biopsy nee dle was used to obtain multiple cores of tissue. The biopsy tissue was submitted to the lab in forma marisela. There were no immediate complications. Pathology is pending at the time of dictation. Following the retroperitoneal biopsy pocket of ascites was localized in the left lower quadrant. Ski n was sterilely prepped and draped. 1% lidocaine was used for local anesthesia. Using a [employer] esis system the fluid collection was cannulated. There was immediate return of clear straw-colored f luid. 2000 mL of fluid was removed and sent to pathology for evaluation. There were no complication s. IMPRESSION: 1. Successful CT-guided biopsy of the left retroperitoneal lymph node. 2. Successful CT-guided paracentesis as described. Pathology is pending. COMMENT: Quality ID 145: Final reports for procedures using fluoroscopy that document radiation exp osure indices, or exposure time and number of fluorographic images (if radiation exposure indices are not available) Patient medication list reviewed: Yes- Quality ID# [id number]:Eligible professional attests to documenting i n the medical record they obtained, updated, or reviewed the patient's current medications.. TECHNICAL DOCUMENTATION: JOB ID: [id number] Quality ID# [id number]: Final reports with documentation of one or more dose reduction techniques (e.g., Aut omated exposure control, adjustment of the mA and/or kV according to patient size, use of iterative r econstruction technique) 2010 [employer]- All Rights Reserved Reading location - IP/workstation name: [email or web address]
[2019-04-20 20:21] LABS: ANION GAP 9 (5-19); BLOOD UREA NITROGEN 14 mg/dL (7-20); CARBON DIOXIDE 24 mmol/L (22-30); CHLORIDE 102 mmol/L (98-107); GLUCOSE 223 mg/dL (75-110); POTASSIUM 4.3 mmol/L (3.6-5.0)
[2019-04-20] MEDS: CALCITONIN,SALMON,SYNTHETIC 400 UNIT/2 ML VIAL IM SCH (22:23)
[2019-04-21] MEDS: OXYCODONE-ACETAMINOPHEN 5-325 MG TABLET PO PRN ×3 (03:34→20:29)
[2019-04-21] MEDS ORDERED: MAGNESIUM HYDROXIDE SUSP 30 ML UDCUP PO ONE (03:45)
[2019-04-21 07:16] LABS: HEMATOCRIT 41.3 % (37.9-51.0); HEMOGLOBIN 14.6 g/dL (13.5-17.0); MEAN CORPUSCULAR HEMOGLOBIN 31.1 pg (27.0-33.4); MEAN CORPUSCULAR HGB CONC 35.2 g/dL (32.0-36.0); MEAN CORPUSCULAR VOLUME 88 fl (80-97); PLATELET COUNT 216 10^3/uL (150-450); RED BLOOD COUNT 4.68 10^6/uL (4.35-5.55); RED CELL DISTRIBUTION WIDTH 14.8 % (11.5-14.0)
--- NOTE | 2019-04-21 08:34 | PDOC PROGRESS REPORT ---
Subjective Progress Note for:: 04/21/19 Subjective:: 04/19/2019-no complaints this a.m. 04/20/2019-no complaints 04/21/2019-patient Reason For Visit: HYPERGLYCEMIA Physical Exam Vital Signs: Temp Pulse Resp BP Pulse Ox 98.1 F 100 20 142/89 H 90 L 04/21/19 03:33 04/21/19 07:00 04/21/19 03:33 04/21/19 03:33 04/21/19 03:33 Intake & Output 04/20/19 04/21/19 04/22/19 06:59 06:59 06:59 Intake Total 1700 830 Output Total 4 Balance 1696 830 Weight 96.1 kg 96.3 kg General appearance: PRESENT: no acute distress, well-developed, well-nourished Head exam: PRESENT: atraumatic, normocephalic Eye exam: PRESENT: conjunctiva pink, EOMI, PERRLA. ABSENT: scleral icterus Ear exam: PRESENT: normal external ear exam Mouth exam: PRESENT: moist, tongue midline Neck exam: ABSENT: carotid bruit, JVD, lymphadenopathy, thyromegaly Respiratory exam: PRESENT: clear to auscultation jamar. ABSENT: rales, rhonchi, wheezes Cardiovascular exam: PRESENT: RRR. ABSENT: diastolic murmur, rubs, systolic murmur Pulses: PRESENT: normal dorsalis pedis pul Vascular exam: PRESENT: normal capillary refill GI/Abdominal exam: PRESENT: hypoactive bowel sounds, soft. ABSENT: distended, guarding, mass, organolmegaly, rebound, tenderness Rectal exam: PRESENT: deferred Extremities exam: PRESENT: full ROM. ABSENT: calf tenderness, clubbing, pedal edema Neurological exam: PRESENT: alert, awake, oriented to person, oriented to place, oriented to time, oriented to situation, CN II-XII grossly intact. ABSENT: motor sensory deficit Psychiatric exam: PRESENT: appropriate affect, normal mood. ABSENT: homicidal ideation, suicidal ideation Skin exam: PRESENT: dry, intact, warm. ABSENT: cyanosis, rash Results Laboratory Results: 04/21/19 06:53 04/20/19 19:49 04/20/19 04/21/19 19:49 06:53 WBC 10.0 RBC 4.68 Hgb 14.6 Hct 41.3 MCV 88 MCH 31.1 MCHC 35.2 RDW 14.8 H Plt Count 216 Sodium 135.0 L Potassium 4.3 Chloride 102 Carbon Dioxide 24 Anion Gap 9 BUN 14 Creatinine 0.51 L Est GFR ( Amer) > 60 Glucose 223 H Calcium 12.0 H* 04/18/19 14:55 Troponin I 0.025 Impressions: Abdomen/Pelvis CT 04/18/19 00:00 IMPRESSION: 1. Questionable soft tissue density at the level of the cecum moderately suspicious for malignancy. Recommend correlation with colonoscopic history. 2. Retroperitoneal adenopathy highly suspicious for metastatic disease. 3. Cirrhotic hepatic morphology with splenomegaly and small volume ascites. Hypoattenuating lesion within the right hepatic dome measuring 7 cm, also suspicious for metastatic disease, versus primary hepatic malignancy. Multiphase hepatic protocol CT or MRI could be considered for further characterization. Chest CT 04/18/19 00:00 IMPRESSION: 1. Multifocal scattered centrilobular nodular and ground-glass opacities throughout both lungs favored to represent multifocal infectious/inflammatory process. Recommend follow-up CT to ensure no underlying lesion. Small bilateral effusions. 2. Shotty mediastinal nodes, likely reactive. 3. See same-day abdomen CT for findings below the diaphragm. Head CT 04/18/19 00:00 IMPRESSION: NORMAL BRAIN CT WITHOUT AND WITH CONTRAST. EVIDENCE OF ACUTE STROKE: NO. Chest X-Ray 04/18/19 16:36 IMPRESSION: Minimal atelectasis at the left lung base. Abdomen MRI 04/19/19 06:40 IMPRESSION: 1. NODULAR CONTOUR OF THE LIVER SUSPICIOUS FOR CIRRHOSIS. LARGE ENHANCING MASS SUSPICIOUS FOR MALIGNANCY. MAY BE PRIMARY OR LESS LIKELY METASTATIC. 2. ASCITES. SMALL PLEURAL EFFUSIONS. Abdomen Biopsy CT 04/20/19 00:[address]: 1[address]-guided biopsy of the left retroperitoneal lymph node. 2. Successful CT-guided paracentesis as described. Pathology is pending. Abdomen CT 04/20/19 00:00 IMPRESSION: 1. Successful CT-guided biopsy of the left retroperitoneal lymph node. 2. Successful CT-guided paracentesis as described. Pathology is pending. Guidance Needle Placement CT 04/20/19 00:00 IMPRESSION: 1. Successful CT-guided biopsy of the left retroperitoneal lymph node. 2. Successful CT-guided paracentesis as described. Pathology is pending. Body Scan Nuclear Medicine 04/20/19 08:00 IMPRESSION: NORMAL BONE SCAN. Assessment and Plan - Diagnosis (1) Hypercalcemia Is this a current diagnosis for this admission?: Yes Plan: 04/18/2019-continue hydrate normal saline 125 mL an hour. Calcitonin 400 mg IM every 12 hours I will obtain a ionized calcium and a intact PTH with vitamin D 1,25 daily. Will await results make change plan of care as appropriate will obtain CT with IV contrast of brain, chest, abdomen pelvis. I will send off a serum protein electrophoresis as patient does have an elevated total protein. 04/19/2019-awaiting a.m. labs. Patient did show a large mass in his liver most suspicious for liver neoplasm. Also multiple lesions throughout abdomen pelvis for which I am running further test. I have consulted Dr. Anat shultz oncology. I am obtaining a alpha-fetoprotein level, CEA and CA [address] abdomen pelvis with oral contrast only an MRI of the liver. Will await further recommendations per oncology and findings of further diagnostics. 04/20/2019-improved. Calcium is 10.6. Large mass especially liver neoplasm will have CT-guided biopsy today. Patient also undergo bone scan. Await findings and further recommendations per oncology 04/21/2019-calcium back up to 12. Calcitonin reestablished (2) Elevated total protein Is this a current diagnosis for this admission?: Yes Plan: 04/18/2019-serum protein electrophoresis consult oncology as needed 04/19/2019-await serum protein electrophoresis. Oncology has been consulted 04/20/2019-serum protein electrophoresis are pending 04/21/2019-awaiting serum protein electrophoresis (3) Fever Is this a current diagnosis for this admission?: Yes Plan: 04/18/2019-rapid flu a/b 04/19/2019-improved. 04/20/2019 resolved stable 04/21/2019-stable (4) Type 2 diabetes mellitus Is this a current diagnosis for this admission?: Yes Plan: 04/18/2019-carbohydrate controlled diet. Sliding scale insulin before meals and at bedtime. We will continue home medications once reconciliation is complete 04/19/2019-better controlled at this time. Continue slight scale insulin before meals and at bedtime 04/20/2019-stable 04/21/2019-stable (5) Constipation Is this a current diagnosis for this admission?: Yes Plan: 04/21/2019-KUB to rule out ileus or small bowel treat as appropriate at that time. - Time Time Spent with patient: 15-24 minutes - Inpatient Certification Based on my medical assessment, after consideration of the patient's comorbidities, presenting symptoms, or acuity I expect that the services needed warrant INPATIENT care.: Yes I certify that my determination is in accordance with my understanding of Medicare's requirements for reasonable and necessary INPATIENT services [42 CFR 412.3e].: Yes Medical Necessity: Significant Comorbidiites Make Outpatient Treatment Too Risky, Need Close Monitoring Due to Risk of Patient Decompensation, Need for Pain Control
[2019-04-21] MEDS: DOCUSATE SODIUM 100 MG CAPSULE PO SCH ×2 (09:17→21:05)
[2019-04-21] MEDS: CALCITONIN,SALMON,SYNTHETIC 400 UNIT/2 ML VIAL IM SCH ×2 (09:17→21:27)
[2019-04-21] MEDS: INSULIN REG, HUMAN 100 UNIT/ML 3 ML VIAL (PYX) SUBCUT SCH ×4 (09:17→21:26)
[2019-04-21] MEDS: MAGNESIUM HYDROXIDE SUSP 30 ML UDCUP PO SCH ×2 (09:18→21:05)
--- NOTE | 2019-04-21 11:23 | PDOC PROGRESS REPORT ---
Subjective Progress Note for:: 04/21/19 Subjective:: No acute events overnight, patient got his procedures done yesterday and we went over them. Feels a little bit better in the belly, passing gas but still has not had a bowel movement. Therefore hospitalist team was going to keep him 1 more day to make sure that he is not having an ileus or obstruction. We discussed the use of soapsuds enema today. Patient is agreeable. Reason For Visit: HYPERGLYCEMIA Physical Exam Vital Signs: Temp Pulse Resp BP Pulse Ox 97.4 F 105 H 18 141/89 H 97 04/21/19 08:54 04/21/19 08:54 04/21/19 08:54 04/21/19 08:54 04/21/19 08:54 Intake & Output 04/20/19 04/21/19 04/22/19 06:59 06:59 06:59 Intake Total 1700 830 Output Total 4 Balance 1696 830 Weight 96.1 kg 96.3 kg General appearance: PRESENT: no acute distress, well-developed, well-nourished Head exam: PRESENT: atraumatic, normocephalic Eye exam: PRESENT: conjunctiva pink, EOMI, PERRLA. ABSENT: scleral icterus Ear exam: PRESENT: normal external ear exam Mouth exam: PRESENT: moist, tongue midline Neck exam: ABSENT: carotid bruit, JVD, lymphadenopathy, thyromegaly Respiratory exam: PRESENT: clear to auscultation jamar. ABSENT: rales, rhonchi, wheezes Cardiovascular exam: PRESENT: RRR. ABSENT: diastolic murmur, rubs, systolic mur mur Pulses: PRESENT: normal dorsalis pedis pul Vascular exam: PRESENT: normal capillary refill GI/Abdominal exam: PRESENT: normal bowel sounds, soft. ABSENT: distended, guarding, mass, organolmegaly, rebound, tenderness Rectal exam: PRESENT: deferred Extremities exam: PRESENT: full ROM. ABSENT: calf tenderness, clubbing, pedal edema Neurological exam: PRESENT: alert, awake, oriented to person, oriented to place, oriented to time, oriented to situation, CN II-XII grossly intact. ABSENT: motor sensory deficit Psychiatric exam: PRESENT: appropriate affect, normal mood. ABSENT: homicidal ideation, suicidal ideation Skin exam: PRESENT: dry, intact, warm. ABSENT: cyanosis, rash Results Laboratory Results: 04/21/19 06:53 04/20/19 19:49 04/20/19 04/21/19 19:49 06:53 WBC 10.0 RBC 4.68 Hgb 14.6 Hct 41.3 MCV 88 MCH 31.1 MCHC 35.2 RDW 14.8 H Plt Count 216 Sodium 135.0 L Potassium 4.3 Chloride 102 Carbon Dioxide 24 Anion Gap 9 BUN 14 Creatinine 0.51 L Est GFR ( Amer) > 60 Glucose 223 H Calcium 12.0 H* 04/18/19 14:55 Troponin I 0.025 Impressions: Abdomen/Pelvis CT 04/18/19 00:00 IMPRESSION: 1. Questionable soft tissue density at the level of the cecum moderately suspicious for malignancy. Recommend correlation with colonoscopic history. 2. Retroperitoneal adenopathy highly suspicious for metastatic disease. 3. Cirrhotic hepatic morphology with splenomegaly and small volume ascites. H ypoattenuating lesion within the right hepatic dome measuring 7 cm, also suspicious for metastatic disease, versus primary hepatic malignancy. Multiphase hepatic protocol CT or MRI could be considered for further characterization. Chest CT 04/18/19 00:00 IMPRESSION: 1. Multifocal scattered centrilobular nodular and ground-glass opacities throughout both lungs favored to represent multifocal infectious/inflammatory process. Recommend follow-up CT to ensure no underlying lesion. Small bilateral effusions. 2. Shotty mediastinal nodes, likely reactive. 3. See same-day abdomen CT for findings below the diaphragm. Head CT 04/18/19 00:00 IMPRESSION: NORMAL BRAIN CT WITHOUT AND WITH CONTRAST. EVIDENCE OF ACUTE STROKE: NO. Chest X-Ray 04/18/19 16:36 IMPRESSION: Minimal atelectasis at the left lung base. Abdomen MRI 04/19/19 06:40 IMPRESSION: 1. NODULAR CONTOUR OF THE LIVER SUSPICIOUS FOR CIRRHOSIS. LARGE ENHANCING MASS SUSPICIOUS FOR MALIGNANCY. MAY BE PRIMARY OR LESS LIKELY METASTATIC. 2. ASCITES. SMALL PLEURAL EFFUSIONS. Abdomen Biopsy CT 04/20/19 00:00 IMPRESSION: 1. Successful CT-guided biopsy of the left retroperitoneal lymph node. 2. Successful CT-guided paracentesis as described. Pathology is pending. Abdomen CT 04/20/19 00:00 IMPRESSION: 1. Successful CT-guided biopsy of the left retroperitoneal lymph node. 2. Successful CT-guided paracentesis as described. Pathology is pending. Guidance Needle Placement CT 04/20/19 00:00 IMPRESSION: 1. Successful CT-guided biopsy of the left retroperitoneal lymph node. 2. Successful CT-guided paracentesis as described. Pathology is pending. Body Scan Nuclear Medicine 04/20/19 08:00 IMPRESSION: NORMAL BONE SCAN. Status: Image reviewed by me Assessment & Plan - Diagnosis (1) Liver mass Is this a current diagnosis for this admission?: Yes Plan: Status post paracentesis as well as retroperitoneal lymph node biopsy. Awaiting results of that. Approach as above. - Time Time Spent with patient: 35 or more minutes - Inpatient Certification Based on my medical assessment, after consideration of the patient's comorbidities, presenting symptoms, or acuity I expect that the services needed warrant INPATIENT care.: Yes I certify that my determination is in accordance with my understanding of Medicare's requirements for reasonable and necessary INPATIENT services [42 CFR 412.3e].: Yes Medical Necessity: Risk of Complication if Not Cared For in Hospital
--- NOTE | 2019-04-21 12:16 | RADIOLOGY REPORT (SQ) ---
EXAM DESCRIPTION: KUB/ABDOMEN (SINGLE VIEW) COMPLETED DATE/TIME: 04/21/2019 8:53 am REASON FOR STUDY: constipation COMPARISON: None. NUMBER OF VIEWS: One view. TECHNIQUE: Supine radiographic image of the abdomen acquired. LIMITATIONS: None. FINDINGS: BOWEL GAS PATTERN: Mild stool. Nonobstructive bowel gas pattern. CALCIFICATIONS: No suspicious calcifications. SOFT TISSUES: No gross mass or suggestion of organomegaly. HARDWARE: None in the abdomen. BONES: No acute fracture. No worrisome bone lesions. OTHER: No other significant finding. IMPRESSION: NO RADIOGRAPHIC EVIDENCE FOR ACUTE ABDOMINAL DISEASE. TECHNICAL DOCUMENTATION: JOB ID: [id number] [employer]- All Rights Reserved Reading location - IP/workstation name: [email or web address]
[2019-04-21] MEDS: ONDANSETRON HCL INJ/PF 4 MG/2 ML SDV IV PRN (17:38)
[2019-04-21 18:10] LABS: ANION GAP 11 (5-19); BLOOD UREA NITROGEN 14 mg/dL (7-20); CARBON DIOXIDE 28 mmol/L (22-30); CHLORIDE 97 mmol/L (98-107); GLUCOSE 198 mg/dL (75-110); POTASSIUM 3.8 mmol/L (3.6-5.0)
[2019-04-21 18:47] LABS: CALCIUM 12.3 mg/dL (8.4-10.2)
[2019-04-21] MEDS ORDERED: CALCITONIN,SALMON,SYNTHETIC 400 UNIT/2 ML VIAL ONE (21:14)
[2019-04-22] MEDS: OXYCODONE-ACETAMINOPHEN 5-325 MG TABLET PO PRN ×2 (04:19→10:50)
[2019-04-22] MEDS ORDERED: ZOLEDRONIC ACID 4 MG/100 ML RTU IV STA (08:37)
[2019-04-22 08:48] VITALS: BP 159/89
--- NOTE | 2019-04-22 08:51 | PDOC DISCHARGE SUMMARY ---
Impression - Admit/DC Date/PCP Admission Date/Primary Care Provider: 04/18/19 19:16 ROSARIO KRUEGER Discharge Date: 04/22/19 - Discharge Diagnosis (1) Hypercalcemia Is this a current diagnosis for this admission?: Yes (2) Elevated total protein Is this a current diagnosis for this admission?: Yes (3) Fever Is this a current diagnosis for this admission?: Yes (4) Type 2 diabetes mellitus Is this a current diagnosis for this admission?: Yes (5) Constipation Is this a current diagnosis for this admission?: Yes - Additional Information Resuscitation Status: Full Code Discharge Diet: As Tolerated Discharge Activity: Activity As Tolerated Referrals: ROSARIO KRUEGER MD [Primary Care Provider] - Follow up as needed Prescriptions: Lactulose [Cephulac Syrup 20 gm/30 ml Udcup] 20 gm PO DAILY 30 Days #60 udc Ondansetron HCl [Zofran 4 mg Tablet] 1 - 2 tab PO Q4H PRN #20 tablet PRN Reason: Home Medications: Glipizide [Glucotrol] 10 mg PO BID 04/18/19 Metformin HCl [Glucophage XR 500 mg Tablet] 1,000 mg PO BIDBS 04/18/19 Lactulose [Cephulac Syrup 20 gm/30 ml Udcup] 20 gm PO DAILY 30 Days #60 udc 04/22/19 Ondansetron HCl [Zofran 4 mg Tablet] 1 - 2 tab PO Q4H PRN #20 tablet 04/22/19 History of Present Illiness History of Present Illness: ÁNGELA WANG is a 53 year old male who presents the ER from his primary care practitioner with nausea vomiting for last 4 days. States he has having some generalized aches and pains has been running a fever. Was found to have a calcium of 13.7. Has complained of urinary frequency his blood sugar was 300 in the ER. Patient states he has been in DKA one time. He had no treatment prior to arrival no triggering factors. Hospital Course Hospital Course: Patient was admitted to [facility] and underwent testing for various forms of cancer. Patient had a CT of the brain chest abdomen pelvis. CT abdomen and pelvis exhibited a large mass in his liver which is most likely a primary neoplasm. Patient also had multiple findings throughout his abdomen. At this time we are awaiting an alpha-fetoprotein level, CEA, and CA 19-9. Patient's initial calcium was 14 and he received calcitonin 400 mg IM twice a day. At this time patient's potassium is still 12 and I discussed this with Dr. Anat shultz we will give patient Zometa 4 mg IV x1. Patient is going to follow-up with Dr. Anat shultz this week. Patient is also having significant pain and constipation. I will place patient on lactulose 20 g air twice a day for constipation and have given him Percocet 5 mg / 325 mg 1 p.o. every 6 hours #30 with no refills. Have also given him Zofran 4 mg p.o. every 4 hours nausea and vomiting. Patient agrees with plan of care and understands to make an appointment tomorrow to see Dr. Luci Vogt this week. Physical Exam Vital Signs: Temp Pulse Resp BP Pulse Ox 97.9 F 97 20 148/81 H 94 04/22/19 03:41 04/22/19 07:00 04/22/19 03:41 04/22/19 03:41 04/22/19 03:41 Intake & Output 04/21/19 04/22/19 04/23/19 06:59 06:59 06:59 Intake Total 830 1320 Output Total 0 Balance 830 1320 Weight 96.3 kg General appearance: PRESENT: no acute distress, well-developed, well-nourished Head exam: PRESENT: atraumatic, normocephalic Eye exam: PRESENT: conjunctiva pink, EOMI, PERRLA. ABSENT: scleral icterus Ear exam: PRESENT: normal external ear exam Mouth exam: PRESENT: moist, tongue midline Neck exam: ABSENT: carotid bruit, JVD, lymphadenopathy, thyromegaly Respiratory exam: PRESENT: clear to auscultation jamar. ABSENT: rales, rhonchi, wheezes Cardiovascular exam: PRESENT: RRR. ABSENT: diastolic murmur, rubs, systolic murmur Pulses: PRESENT: normal dorsalis pedis pul Vascular exam: PRESENT: normal capillary refill GI/Abdominal exam: PRESENT: normal bowel sounds, soft, other - Rounded. ABSENT: distended, guarding, mass, organolmegaly, rebound, tenderness Rectal exam: PRESENT: deferred Extremities exam: PRESENT: full ROM. ABSENT: calf tenderness, clubbing, pedal edema Neurological exam: PRESENT: alert, awake, oriented to person, oriented to place, oriented to time, oriented to situation, CN II-XII grossly intact. ABSENT: motor sensory deficit Psychiatric exam: PRESENT: appropriate affect, normal mood. ABSENT: homicidal ideation, suicidal ideation Skin exam: PRESENT: dry, intact, warm. ABSENT: cyanosis, rash Results Laboratory Results: WBC 10.0 10^3/uL (4.0-10.5) 04/21/19 06:53 RBC 4.68 10^6/uL (4.35-5.55) 04/21/19 06:53 Hgb 14.6 g/dL (13.5-17.0) 04/21/19 06:53 Hct 41.3 % (37.9-51.0) 04/21/19 06:53 MCV 88 fl (80-97) 04/21/19 06:53 MCH 31.1 pg (27.0-33.4) 04/21/19 06:53 MCHC 35.2 g/dL (32.0-36.0) 04/21/19 06:53 RDW 14.8 % (11.5-14.0) H 04/21/19 06:53 Plt Count 216 10^3/uL (150-450) 04/21/19 06:53 Lymph % (Auto) 8.9 % (13-45) L 04/18/19 14:55 [place] % (Auto) 3.6 % (3-13) 04/18/19 14:55 Eos % (Auto) 0.1 % (0-6) 04/18/19 14:55 Baso % (Auto) 0.4 % (0-2) 04/18/19 14:55 Reticulocyte # 0.121 10^6/uL (0.028-0.122) 04/19/19 05:23 Absolute Neuts (auto) 13.1 10^3/uL (1.7-8.2) H 04/18/19 14:55 Absolute Lymphs (auto) 1.3 10^3/uL (0.5-4.7) 04/18/19 14:55 Absolute Monos (auto) 0.5 10^3/uL (0.1-1.4) 04/18/19 14:55 Absolute Eos (auto) 0.0 10^3/uL (0.0-0.6) 04/18/19 14:55 Absolute Basos (auto) 0.1 10^3/uL (0.0-0.2) 04/18/19 14:55 Seg Neutrophils % 87.0 % (42-78) H 04/18/19 14:55 Retic Count (auto) 2.77 % (0.66-2.85) 04/19/19 05:23 PT 13.5 SEC (11.4-15.4) 04/20/19 07:35 INR 1.03 04/20/19 07:35 APTT 27.2 SEC (23.5-35.8) 04/20/19 07:35 VBG pH 7.32 (7.30-7.42) 04/18/19 14:55 VBG pCO2 49.5 mmHg (35-63) 04/18/19 14:55 VBG HCO3 25.0 mmol/L (20-32) 04/18/19 14:55 VBG Base Excess -1.7 mmol/L 04/18/19 14:55 Sodium 135.9 mmol/L (137-145) L 04/21/19 17:39 Potassium 3.8 mmol/L (3.6-5.0) 04/21/19 17:39 Chloride 97 mmol/L (98-107) L 04/21/19 17:39 Carbon Dioxide 28 mmol/L (22-30) 04/21/19 17:39 Anion Gap 11 (5-19) 04/21/19 17:39 BUN 14 mg/dL (7-20) 04/21/19 17:39 Creatinine 0.59 mg/dL (0.52-1.25) 04/21/19 17:39 Est GFR ( Amer) > 60 (>60) 04/21/19 17:39 Est GFR (MDRD) Non-Af > 60 (>60) 04/21/19 17:39 Glucose 198 mg/dL (75-110) H 04/21/19 17:39 POC Glucose 237 mg/dL (70-110) H 04/21/19 21:22 Calcium 12.3 mg/dL (8.4-10.2) H* 04/21/19 17:39 Ionized Calcium [place] 1.52 mmol/L (1.14-1.30) H 04/18/19 18:58 Phosphorus 2.3 mg/dL (2.5-4.5) L 04/19/19 05:23 Magnesium 1.7 mg/dL (1.6-2.3) 04/19/19 05:23 Iron 62.5 ug/dL (49-181) 04/19/19 07:44 TIBC 282 ug/dL (250-450) 04/19/19 07:44 % Saturation 22 % 04/19/19 07:44 Ferritin 469.00 ng/mL (17.9-464.0) H 04/19/19 07:44 Total Bilirubin 2.3 mg/dL (0.2-1.3) H 04/18/19 14:55 Direct Bilirubin 1.2 mg/dL (0.0-0.4) H 04/18/19 14:55 Neonat Total Bilirubin Not Reportable 04/18/19 14:55 Neonat Direct Bilirubin Not Reportable 04/18/19 14:55 Neonat Indirect Bili Not Reportable 04/18/19 14:55 AST 54 U/L (17-59) 04/18/19 14:55 ALT 66 U/L (<50) 04/18/19 14:55 Alkaline Phosphatase 129 U/L (38-126) H 04/18/19 14:55 Troponin I 0.025 ng/mL 04/18/19 14:55 Total Protein 8.3 g/dL (6.3-8.2) H 04/18/19 14:55 Albumin 4.5 g/dL (3.5-5.0) 04/18/19 14:55 Lipase 116.7 U/L (23-300) 04/18/19 13:11 Tumor Marker AFP 3.1 ng/mL (0.0-8.3) 04/19/19 07:44 Carcinoembryonic Ag 132.0 ng/mL (<3.0) H 04/19/19 07:44 CA 19-9 Antigen 19 U/mL (0-35) 04/19/19 07:44 Vitamin B12 > 1000.0 pg/mL (239-931) H 04/19/19 07:44 Vit D 1,25-Dihydroxy 82.0 pg/mL (19.9-79.3) H 04/18/19 13:11 Folate 7.66 ng/mL (>2.76) 04/19/19 07:44 PTH Intact 6.7 pg/mL (10.0-65.0) L 04/18/19 13:11 Urine Color YELLOW 04/18/19 14:55 Urine Appearance CLEAR 04/18/19 14:55 Urine pH 5.0 (5.0-9.0) 04/18/19 14:55 Ur Specific [place] 1.028 04/18/19 14:55 Urine Protein NEGATIVE mg/dL (NEGATIVE) 04/18/19 14:55 Urine Glucose (UA) >=500 mg/dL (NEGATIVE) H 04/18/19 14:55 Urine Ketones 80 mg/dL (NEGATIVE) H 04/18/19 14:55 Urine Blood NEGATIVE (NEGATIVE) 04/18/19 14:55 Urine Nitrite NEGATIVE (NEGATIVE) 04/18/19 14:55 Urine Bilirubin NEGATIVE (NEGATIVE) 04/18/19 14:55 Urine Urobilinogen NEGATIVE mg/dL (<2.0) 04/18/19 14:55 Ur Leukocyte Esterase NEGATIVE (NEGATIVE) 04/18/19 14:55 Urine WBC (Auto) 1 /HPF 04/18/19 14:55 Urine RBC (Auto) 0 /HPF 04/18/19 14:55 Squamous Epi Cells Auto <1 /HPF 04/18/19 14:55 Urine Mucus (Auto) RARE /LPF 04/18/19 14:55 Urine Ascorbic Acid NEGATIVE (NEGATIVE) 04/18/19 14:55 Hepatitis A IgM Ab Negative (Negative) 04/19/19 07:44 Hep Bs Antigen Negative (Negative) 04/19/19 07:44 Hep B Core IgM Ab Negative (Negative) 04/19/19 07:44 Hepatitis C Antibody >11.0 s/co ratio (0.0-0.9) H 04/19/19 07:44 HIV 1&2 Antibody NEGATIVE (NEGATIVE) 04/19/19 05:23 Influenza A (Rapid) NEGATIVE (NEGATIVE) 04/18/19 20:03 Influenza B (Rapid) NEGATIVE (NEGATIVE) 04/18/19 20:03 04/18/19 14:55 Troponin I 0.025 Impressions: Abdomen/Pelvis CT 04/18/19 00:00 IMPRESSION: 1. Questionable soft tissue density at the level of the cecum moderately suspicious for malignancy. Recommend correlation with colonoscopic history. 2. Retroperitoneal adenopathy highly suspicious for metastatic disease. 3. Cirrhotic hepatic morphology with splenomegaly and small volume ascites. Hypoattenuating lesion within the right hepatic dome measuring 7 cm, also suspicious for metastatic disease, versus primary hepatic malignancy. Multiphase hepatic protocol CT or MRI could be considered for further characterization. Chest CT 04/18/19 00:00 IMPRESSION: 1. Multifocal scattered centrilobular nodular and ground-glass opacities throughout both lungs favored to represent multifocal infectious/inflammatory process. Recommend follow-up CT to ensure no underlying lesion. Small bilateral effusions. 2. Shotty mediastinal nodes, likely reactive. 3. See same-day abdomen CT for findings below the diaphragm. Head CT 04/18/19 00:00 IMPRESSION: NORMAL BRAIN CT WITHOUT AND WITH CONTRAST. EVIDENCE OF ACUTE STROKE: NO. Chest X-Ray 04/18/19 16:36 IMPRESSION: Minimal atelectasis at the left lung base. Abdomen MRI 04/19/19 06:40 IMPRESSION: 1. NODULAR CONTOUR OF THE LIVER SUSPICIOUS FOR CIRRHOSIS. LARGE ENHANCING MASS SUSPICIOUS FOR MALIGNANCY. MAY BE PRIMARY OR LESS LIKELY METASTATIC. 2. ASCITES. SMALL PLEURAL EFFUSIONS. Abdomen Biopsy CT 04/20/19 00:00 IMPRESSION: 1[address]-guided biopsy of the left retroperitoneal lymph node. 2. Successful CT-guided paracentesis as described. Pathology is pending. Abdomen CT 04/20/19 00:00 IMPRESSION: 1. Successful CT-guided biopsy of the left retroperitoneal lymph node. 2. Successful CT-guided paracentesis as described. Pathology is pending. Guidance Needle Placement CT 04/20/19 00:00 IMPRESSION: 1. Successful CT-guided biopsy of the left retroperitoneal lymph node. 2. Successful CT-guided paracentesis as described. Pathology is pending. Body Scan Nuclear Medicine 04/20/19 08:00 IMPRESSION: NORMAL BONE SCAN. KUB X-Ray 04/21/19 00:00 IMPRESSION: NO RADIOGRAPHIC EVIDENCE FOR ACUTE ABDOMINAL DISEASE. Plan Time Spent: Greater than 30 Minutes Stroke Is this a Stroke Patient?: No Acute Heart Failure - Is this a Heart Failure Patient?: No
[2019-04-22] MEDS: INSULIN REG, HUMAN 100 UNIT/ML 3 ML VIAL (PYX) SUBCUT SCH (09:06)
[2019-04-22] MEDS ORDERED: ZOLEDRONIC ACID 4 MG/100 ML RTU IV ONE (10:00)
[2019-04-22] MEDS: DOCUSATE SODIUM 100 MG CAPSULE PO SCH (10:13)
[2019-04-22] MEDS: MAGNESIUM HYDROXIDE SUSP 30 ML UDCUP PO SCH (10:13)
[2019-04-22] MEDS: CALCITONIN,SALMON,SYNTHETIC 400 UNIT/2 ML VIAL IM SCH (10:49)
== END 2019-04-22 11:37 | disposition home or self-care (01) | DRG 629 ==
LOC: ER 13:15 → EH 19:16 → 3W 21:10
PROVIDERS: ADMIT Internal Medicine; ATTEND Internal Medicine
PROC: 07BJ3ZX Excision of Left Inguinal Lymphatic, Percutaneous Approach, Diagnostic (ICD-10-PCS; principal; 2019-04-20)
PROC: 0W9G3ZX Drainage of Peritoneal Cavity, Percutaneous Approach, Diagnostic (ICD-10-PCS; 2019-04-20)
DX: E83.52 Hypercalcemia (principal); R18.8 Other ascites; R59.9 Enlarged lymph nodes, unspecified; K76.9 Liver disease, unspecified; E11.65 Type 2 diabetes mellitus with hyperglycemia; B19.20 Unspecified viral hepatitis C without hepatic coma; R16.0 Hepatomegaly, not elsewhere classified; R11.2 Nausea with vomiting, unspecified; M25.512 Pain in left shoulder; K59.00 Constipation, unspecified; F17.210 Nicotine dependence, cigarettes, uncomplicated; F10.11 Alcohol abuse, in remission
CPT/HCPCS: 36415; 49083; 49180; 70470; 71045; 71260; 74018; 74177; 74183; 77012; 78306; 80048; 80053; 80074; 81001; 82105; 82140; 82330; 82378; 82607; 82652; 82728; 82746; 82803; 82962; 83540; 83550; 83690; 83735; 83970; 84100; 84484; 85025; 85027; 85045; 85610; 85730; 86301; 86320; 86701; 87804; 88305; 88313; 88341; 88342; 93005; 93010; 96361; 96374; 96375; 99285; A9561; A9576; J0630; J1200; J1815; J1885; J2250; J2405; J2765; J3010; J3489; J3490; J7030; J7040; Q9969

== ENCOUNTER 2019-05-03 12:02 | Inpatient (IN) | payer OTHER ==
[2019-05-03] MEDS ORDERED: OXYCODONE-ACETAMINOPHEN 5-325 MG TABLET PO ONE (13:35)
--- NOTE | 2019-05-03 13:37 | ER Document Report ---
ED Medical Screen (RME) - General Chief Complaint: Low Back Pain Stated Complaint: BACK PAIN,LEGS NUMB Time Seen by Provider: 05/03/19 13:27 Primary Care Provider: KAMRON PERALES PA-C [Primary Care Provider] - Follow up as needed Mode of Arrival: Wheelchair Information source: Patient Notes: 53-year-old male with history of diabetes and recent diagnosis of stage IV colon cancer presents to the emergency department sent over by Dr. Charles for back pain legs numb. Patient reports he has been unable to stand up. Patient had a goal to get a PET scan done today but his sugar was too high. Patient was prescribed Percocet 5/325 reports not touching the pain. I have greeted and performed a rapid initial assessment of this patient. A comprehensive ED assessment and evaluation of the patient, analysis of test results and completion of the medical decision making process will be conducted by additional ED providers. TRAVEL OUTSIDE OF THE [place] IN LAST 30 DAYS: No - Related Data Allergies/Adverse Reactions: No Known Allergies Allergy (Verified 04/18/19 18:20) Past Medical History Endocrine Medical History: Reports: Hx Diabetes Mellitus Type 2 Past Surgical History: Reports: Hx Orthopedic Surgery Physical Exam - Vital signs Vitals: Temp Pulse Resp BP Pulse Ox 97.4 F 110 H 16 120/73 100 05/03/19 12:07 05/03/19 12:07 05/03/19 12:07 05/03/19 12:07 05/03/19 12:07 Course - Vital Signs Vital signs: Temp Pulse Resp BP Pulse Ox 97.4 F 110 H 16 120/73 100 05/03/19 12:07 05/03/19 12:07 05/03/19 12:07 05/03/19 12:07 05/03/19 12:07 Doctor's Discharge - Discharge Referrals: KAMRON PERALES PA-C [Primary Care Provider] - Follow up as needed
[2019-05-03 16:37] LABS: ABSOLUTE BASOPHILS # (AUTO) 0.1 10^3/uL (0.0-0.2); ABSOLUTE EOSINOPHILS # (AUTO) 0.1 10^3/uL (0.0-0.6); ABSOLUTE LYMPHOCYTES (AUTO) 1.2 10^3/uL (0.5-4.7); ABSOLUTE MONOCYTES (AUTO) 0.8 10^3/uL (0.1-1.4); ABSOLUTE NEUT (AUTO) 8.1 10^3/uL (1.7-8.2); BASOPHILS % (AUTO) 0.5 % (0-2); EOSINOPHILS % (AUTO) 0.9 % (0-6); HEMATOCRIT 42.3 % (37.9-51.0); HEMOGLOBIN 14.6 g/dL (13.5-17.0); LYMPHOCYTES % (AUTO) 11.3 % (13-45); MEAN CORPUSCULAR HGB CONC 34.6 g/dL (32.0-36.0); MEAN CORPUSCULAR VOLUME 90 fl (80-97); MONOCYTES % (AUTO) 8.2 % (3-13); PLATELET COUNT 212 10^3/uL (150-450); RED BLOOD COUNT 4.72 10^6/uL (4.35-5.55); RED CELL DISTRIBUTION WIDTH 15.2 % (11.5-14.0); SEGMENTED NEUTROPHILS % (AUTO) 79.1 % (42-78); TOTAL CELLS COUNTED % (AUTO) 100 %; WHITE BLOOD COUNT 10.2 10^3/uL (4.0-10.5)
[2019-05-03 16:55] LABS: ALBUMIN 3.5 g/dL (3.5-5.0); ALKALINE PHOSPHATASE 116 U/L (38-126); ANION GAP 12 (5-19); ASPARTATE AMINO TRANSFERASE 47 U/L (17-59); BILIRUBIN,DIRECT 0.8 mg/dL (0.0-0.4); BILIRUBIN,TOTAL 1.7 mg/dL (0.2-1.3); BLOOD UREA NITROGEN 13 mg/dL (7-20); CALCIUM 11.9 mg/dL (8.4-10.2); CARBON DIOXIDE 27 mmol/L (22-30); CHLORIDE 92 mmol/L (98-107); GLUCOSE 185 mg/dL (75-110); POTASSIUM 4.6 mmol/L (3.6-5.0); TOTAL PROTEIN 6.7 g/dL (6.3-8.2)
[2019-05-03 17:40] LABS: APPEARANCE,URINE CLEAR; BILIRUBIN,URINE NEGATIVE (NEGATIVE); COLOR,URINE AMBER; GLUCOSE, URINE 50 mg/dL (NEGATIVE); KETONES,URINE 20 mg/dL (NEGATIVE); LEUKOCYTE ESTERASE,URINE NEGATIVE (NEGATIVE); NITRITE,URINE NEGATIVE (NEGATIVE); PROTEIN,URINE 30 mg/dL (NEGATIVE); URINE SPECIFIC GRAVITY 1.019
[2019-05-03] MEDS ORDERED: NORMAL SALINE 1000 ML 1,000 ML IV ONE (20:28)
[2019-05-03] MEDS ORDERED: DIPHENHYDRAMINE HCL 50 MG/ML VIAL IV ONE (20:28)
[2019-05-03] MEDS ORDERED: HYDROMORPHONE HCL INJ/PF 2 MG/ML AMPULE IV ONE (20:28)
--- NOTE | 2019-05-03 20:34 | ER Document Report ---
ED General - General Chief Complaint: Back Pain Stated Complaint: BACK PAIN,LEGS NUMB Time Seen by Provider: 05/03/19 13:27 Mode of Arrival: Wheelchair Notes: Patient is a 53-year-old male that comes to the emergency department for chief complaint of worsening pain in his back and developing numbness in his legs especially in his thighs over the past 2 days. He has a history of colon cancer, possibly liver cancer, he was supposed to have a PET scan earlier today to ascertain exactly what is going on, he has not had a port placed, he is not on chemo or radiation, he is in early stages of work-up. He was sent over by Dr. Charles, oncology. He is able to urinate, he is not having accidental bowel movements. He does report a lot of itching. TRAVEL OUTSIDE OF THE [place] IN LAST 30 DAYS: No - Related Data Allergies/Adverse Reactions: No Known Allergies Allergy (Verified 04/18/19 18:20) Past Medical History - General Information source: Patient - Social History Smoking Status: Current Every Day Smoker Frequency of alcohol use: None Drug Abuse: None Lives with: Family Family History: DM Patient has suicidal ideation: No Patient has homicidal ideation: No Endocrine Medical History: Reports: Hx Diabetes Mellitus Type 2 Past Surgical History: Reports: Hx Orthopedic Surgery - Immunizations Immunizations up to date: Yes Hx Diphtheria, Pertussis, Tetanus Vaccination: Yes Review of Systems - Review of Systems Constitutional: No symptoms reported EENT: No symptoms reported Cardiovascular: No symptoms reported Respiratory: No symptoms reported Gastrointestinal: No symptoms reported Genitourinary: No symptoms reported Male Genitourinary: No symptoms reported Musculoskeletal: See HPI Skin: No symptoms reported Hematologic/Lymphatic: No symptoms reported Neurological/Psychological: See HPI Physical Exam - Vital signs Vitals: Temp Pulse Resp BP Pulse Ox 97.4 F 110 H 16 120/73 100 05/03/19 12:07 05/03/19 12:07 05/03/19 12:07 05/03/19 12:07 05/03/19 12:07 - Notes Notes: GENERAL: Alert, interacts well. Restless and uncomfortable appearing HEAD: Normocephalic, atraumatic. EYES: Pupils equal, round, and reactive to light. Extraocular movements intact. ENT: Oral mucosa moist, tongue midline. Oropharynx unremarkable. Airway patent. NECK: Full range of motion. Supple. Trachea midline. LUNGS: Clear to auscultation bilaterally, no wheezes, rales, or rhonchi. No respiratory distress. HEART: Borderline tachycardia, no murmur, normal rhythm ABDOMEN: Soft, non-tender. Non-distended. EXTREMITIES: Moves all 4 extremities spontaneously. No edema, normal radial and dorsalis pedis pulses bilaterally. No cyanosis. BACK: No signs of trauma. Generalized pain over the lumbar area, nonspecific. No saddle anesthesia.numbness over the thighs especially anteriorly noted but distal neurovascular exam seems normal. Moves all extremities in full range of motion. NEUROLOGICAL: Alert and oriented x3. Normal speech. Cranial nerves II through XII grossly intact. PSYCH: Irritable SKIN: Warm, dry, normal turgor. No rashes or lesions noted. Course - Re-evaluation Re-evalutation: Patient has numbness over the thighs bilaterally, lower back pain. Back pain has been going on for a while but numbness is new. No incontinence. No fever. No reported history of IV drug abuse. Concerned because of the setting of cancer and possible metastasis. Discussed with Dr. Stephen, MRI will be performed. 05/03/19 22:30 MRI imaging showing multiple lumbar bony metastasis and at the pelvis but also shows a large herniated disc. I suspect that the paresthesias are from the herniated disc and the pain is from both. Patient can barely walk because of the severe pain in his back, he is on no pain control. He is much more comfortable on reevaluation. I called and spoke with Dr. Charles who sent the patient in the emergency department. He states that patient had a liver mass biopsied and it appeared that this was most likely metastasis from the colon, now patient also has the bony mets. In addition to this patient is supposed to have his blood glucose is controlled for the PET scan that is happening on Tuesday, he is on metformin and Glucophage and Dr. Charles is recommending steroids for his back. Because patient will require blood glucose management and pain control because he is having difficulty walking he recommends that he be admitted to observation status so they can get his blood sugars and pain regimen under control, he states that he would like to have a consult placed so he can see the patient in the morning and he would request that the patient be admitted to the hospitalist service. I discussed details of work-up and plan at length with patient and his significant other. 05/03/[address] Villa, hospitalist, patient is accepted to observation on the medical floor. Patient states understanding and agreement. - Vital Signs Vital signs: Temp Pulse Resp BP Pulse Ox 97.3 F 102 H 20 130/86 H 97 05/04/19 03:19 05/04/19 03:19 05/04/19 03:19 05/04/19 03:19 05/04/19 03:19 - Laboratory Result Diagrams: 05/03/19 16:16 05/03/19 16:16 Laboratory results interpreted by me: 05/03/19 05/03/19 05/03/19 13:59 16:16 16:16 RDW 15.2 H Lymph % (Auto) 11.3 L Seg Neutrophils % 79.1 H Sodium 130.5 L Chloride 92 L Glucose 185 H POC Glucose 210 H Hemoglobin A1c % Calcium 11.9 H Total Bilirubin 1.7 H Direct Bilirubin 0.8 H Urine Protein Urine Glucose (UA) Urine Ketones Urine Urobilinogen 05/03/19 05/03/19 16:16 17:20 RDW Lymph % (Auto) Seg Neutrophils % Sodium Chloride Glucose POC Glucose Hemoglobin A1c % 8.7 H Calcium Total Bilirubin Direct Bilirubin Urine Protein 30 H Urine Glucose (UA) 50 H Urine Ketones 20 H Urine Urobilinogen 2.0 H Discharge - Discharge Clinical Impression: Lumbar herniated disc, Bony metastasis Back pain Qualifiers: Back pain location: low back pain Chronicity: acute Back pain laterality: bilateral Sciatica presence: with sciatica Sciatica laterality: bilateral sciatica Qualified Code(s): M54.42 - Lumbago with sciatica, left side Uncontrolled diabetes mellitus Qualifiers: Diabetes mellitus type: type 2 Glycemic state: with hyperglycemia Qualified Code(s): E11.65 - Type 2 diabetes mellitus with hyperglycemia Condition: Stable Disposition: ADMITTED OBSERVATION Admitting Provider: Allen (Hospitalist) Unit Admitted: Medical Floor
--- NOTE | 2019-05-03 22:10 | RADIOLOGY REPORT (SQ) ---
EXAM DESCRIPTION: MR LUMBAR SPINE WITHOUT THEN WITH IV CONTRAST COMPLETED DATE/TME: 05/03/2019 20:29 CLINICAL HISTORY: 53 years, Male, back pain, cancer, numbness COMPARISON: Total body bone scan 04/20/2019 TECHNIQUE: 253 Images stored on PACS. LIMITATIONS: None. FINDINGS: 5 lumbar type vertebral bodies, for the purposes of this exam. Vertebral body height and alignment is preserved. However, there is abnormal marrow signal associated with L1, L2, L5 and S1, showing predominantly low signal on T1 sequences and heterogeneous enhancement. There is also abnormal signal associated with the right ilium and to lesser degree the left ilium at the SI joint level. Findings are consistent with osseous metastases. Normal signal in the visualized spinal cord. The conus medullaris terminates appropriately. T12-L1, L1-L2, L2-L3, L3-L4 levels are unremarkable. At L4-L5 there is moderate facet arthropathy with ligamentum flavum hypertrophy. Diffuse disc bulging with a superimposed small central disc protrusion and annular tear. Moderate central canal stenosis. No significant neural foraminal compromise. L5-S1 level is unremarkable. IMPRESSION: Multiple levels of osseous metastases, as above. Degenerative disc disease at the L4-5 level resulting in moderate central canal stenosis. copyright 2010 [employer]- All Rights Reserved
[2019-05-03] MEDS ORDERED: METHYLPREDNISOLONE INJ 125 MG/2 ML SDV IV ONE (22:35)
[2019-05-04] MEDS ORDERED: ONDANSETRON HCL INJ/PF 4 MG/2 ML SDV IV PRN (00:31)
[2019-05-04] MEDS ORDERED: MAG HYDROX/AL HYDROX/SIMETH SUSP 30 ML UDCUP PO PRN (00:31)
[2019-05-04] MEDS ORDERED: MAGNESIUM HYDROXIDE SUSP 30 ML UDCUP PO PRN (00:31)
[2019-05-04] MEDS ORDERED: DIPHENHYDRAMINE HCL 50 MG/ML VIAL IV ONE (00:34)
[2019-05-04] MEDS ORDERED: HYDROMORPHONE HCL INJ/PF 2 MG/ML AMPULE IV ONE (00:34)
[2019-05-04] MEDS ORDERED: IBUPROFEN 800 MG TABLET PO PRN (00:36)
[2019-05-04] MEDS ORDERED: LEVALBUTEROL HCL NEB 0.63 MG/3 ML AMPUL NEB PRN (00:36)
[2019-05-04] MEDS ORDERED: ACETAMINOPHEN 325 MG TABLET PO PRN (00:36)
[2019-05-04] MEDS ORDERED: NICOTINE 21 MG/24 HR PATCH.TD24 TD PRN (00:36)
[2019-05-04] MEDS ORDERED: MORPHINE SULFATE 10 MG/ML INJ IV PRN ×3 (00:36)
[2019-05-04] MEDS ORDERED: GLUCAGON,HUMAN RECOMB 1 MG INJ IM PRN (00:37)
[2019-05-04] MEDS ORDERED: DEXTROSE 50%-WATER 25 GM/50 ML DISP.SYRIN IV PRN ×4 (00:37→15:12)
[2019-05-04] MEDS ORDERED: DEXTROSE 40% GEL 15 GM TUBE PO PRN ×4 (00:37→15:12)
[2019-05-04] MEDS ORDERED: LACTULOSE SYRUP 20 GM/30 ML UDCUP PO PRN (00:39)
[2019-05-04] MEDS ORDERED: DIPHENHYDRAMINE HCL 50 MG CAPSULE PO PRN (01:31)
[2019-05-04] MEDS ORDERED: HYDROXYZINE HCL INJ 50 MG/1 ML VIAL IM PRN (01:32)
--- NOTE | 2019-05-04 04:04 | PDOC H&P ---
History of Present Illness Admission Date/PCP: 05/04/2019 00:41 ROSARIOBecka KRUEGER Patient complains of: Back pain History of Present Illness: ÁNGELA WANG JR is a 53 year old male who presents the emergency room with a 2-day history of back pain. He admits a progressively worsening pain in his lower back with the gradual development of numbness in his bilateral anterior thighs over the course of the last 2 days. He describes the pain as severe, sharp and constant, worsened with movement and without radiation. He denies prior similar episodes. He denies other associated or accompanying signs and symptoms. He denies identification of any additional aggravating or ameliorating factors for his back pain. In the emergency room he was found to have a herniated nucleus pulposus in the L4-5 region with protrusion into the central canal. Additionally he was noted to have multiple areas of probable bony metastases of his known colon cancer. Patient was subsequently admitted to observation status for pain control and further evaluation and treatment as required. Past Medical History Cardiac Medical History: Denies: Coronary Artery Disease, Hyperlipidema, Hypertension Pulmonary Medical History: Denies: Asthma, Chronic Obstructive Pulmonary Disease (COPD) EENT Medical History: Denies: Cataracts, Ears - Hearing aids Neurological Medical History: Denies: Hemorrhagic CVA, Ischemic CVA, Seizures Endocrine Medical History: Reports: Diabetes Mellitus Type 2 Denies: Diabetes Mellitus Type 1, Hyperthyroidism, Hypothyroidism, Obesity Renal/ Medical History: Denies: Chronic Kidney Disease, Nephrolithiasis Malignancy Medical History: Reports: Colorectal Cancer GI Medical History: Denies: Cirrhosis, Crohn's Disease, Hepatitis, Peptic Ulcer Disease, U lcerative Colitis Musculoskeltal Medical History: Denies: Arthritis, Gout Skin Medical History: Denies: Eczema, Psoriasis Psychiatric Medical History: Reports: Tobacco Dependency Denies: Alcohol Dependency, Substance Abuse Traumatic Medical History: Reports: None Hematology: Denies: Anemia, Bleeding Tendencies Infectious Medical History: Reports: None Past Surgical History Past Surgical History: Reports: Orthopedic Surgery Social History Information Source: Patient Lives with: Spouse/Significant other Smoking Status: Current Every Day Smoker Electronic Cigarette use?: No Frequency of Alcohol Use: Occasional Hx Recreational Drug Use: No Drugs: None Hx Prescription Drug Abuse: No - Advance Directive Resuscitation Status: Full Code Surrogate healthcare decision maker:: Daniela Sawyer Family History Family History: DM. denies: CAD, Malignancy Parental Family History Reviewed: Yes Children Family History Reviewed: No Sibling(s) Family History Reviewed.: Yes Medication/Allergy Home Medications: Glipizide [Glucotrol] 10 mg PO BID 04/18/19 Metformin HCl [Glucophage XR 500 mg Tablet] 1,000 mg PO BIDBS 04/18/19 Lactulose [Cephulac Syrup 20 gm/30 ml Udcup] 20 gm PO DAILY 30 Days #60 udc 04/22/19 Ondansetron HCl [Zofran 4 mg Tablet] 1 - 2 tab PO Q4H PRN #20 tablet 04/22/19 Allergies/Adverse Reactions: No Known Allergies Allergy (Verified 04/18/19 18:20) Review of Systems Constitutional: ABSENT: chills, fever(s) Eyes: ABSENT: visual disturbances, other - Eye pain Ears: ABSENT: hearing changes, other - Ear pain Nose, Mouth, and Throat: ABSENT: headache(s), mouth pain, sore throat Cardiovascular: ABSENT: chest pain, palpitations Respiratory: ABSENT: cough, dyspnea Gastrointestinal: PRESENT: bloating, constipation, other - Umbilical hernia symptoms with pain. ABSENT: abdominal pain, diarrhea, nausea, vomiting Genitourinary: ABSENT: dysuria, hematuria Musculoskeletal: PRESENT: as per HPI, back pain. ABSENT: joint swelling, muscle weakness Integumentary: PRESENT: pruritus - With hives. ABSENT: rash Neurological: PRESENT: as per HPI, numbness - Of bilateral thighs. ABSENT: confusion, convulsions, focal weakness, memory loss, syncope Psychiatric: ABSENT: anxiety, depression Endocrine: ABSENT: cold intolerance, heat intolerance Hematologic/Lymphatic: ABSENT: easy bleeding, easy bruising Allergic/Immunologic: ABSENT: seasonal rhinorrhea Physical Exam Vital Signs: Temp Pulse Resp BP Pulse Ox 97.4 F 102 H 15 115/81 93 05/03/19 12:07 05/03/19 18:00 05/03/19 22:01 05/03/19 22:01 05/03/19 22:01 Intake & Output 05/02/19 05/03/19 05/04/19 23:59 23:59 23:59 Intake Total 1000 Balance 1000 Weight 96.162 kg General appearance: PRESENT: cooperative, mild distress - Secondary to back pain Head exam: PRESENT: atraumatic, normocephalic Eye exam: PRESENT: conjunctiva pink. ABSENT: conjunctival injection, scleral icterus Ear exam: PRESENT: normal external ear exam. ABSENT: bleeding, drainage Mouth exam: PRESENT: dry mucosa, neck supple Neck exam: ABSENT: thyromegaly, tracheal deviation Respiratory exam: PRESENT: clear to auscultation jamar, symmetrical, unlabored Cardiovascular exam: PRESENT: RRR. ABSENT: clicks, gallop, rubs Pulses: PRESENT: normal radial pulses, normal dorsalis pedis pul Vascular exam: PRESENT: normal capillary refill. ABSENT: pallor GI/Abdominal exam: PRESENT: normal bowel sounds, soft Rectal exam: PRESENT: deferred Extremities exam: ABSENT: joint swelling, pedal edema Musculoskeletal exam: ABSENT: deformity, dislocation Neurological exam: PRESENT: alert, oriented to person, oriented to place, oriented to time, oriented to situation, CN II-XII grossly intact Psychiatric exam: PRESENT: appropriate affect, normal mood Skin exam: PRESENT: dry, intact, warm. ABSENT: jaundice, rash, urticaria Results Laboratory Results: 05/03/19 16:16 05/03/19 16:16 05/03/19 05/03/19 05/03/19 16:16 16:16 17:20 WBC 10.2 RBC 4.72 Hgb 14.6 Hct 42.3 MCV 90 MCH 31.0 MCHC 34.6 RDW 15.2 H Plt Count 212 Seg Neutrophils % 79.1 H Sodium 130.5 L Potassium 4.6 Chloride 92 L Carbon Dioxide 27 Anion Gap 12 BUN 13 Creatinine 0.55 Est GFR ( Amer) > 60 Glucose 185 H Calcium 11.9 H Total Bilirubin 1.7 H AST 47 Alkaline Phosphatase 116 Total Protein 6.7 Albumin 3.5 Urine Color ALLYN Urine Appearance CLEAR Urine pH 5.0 Ur Specific [place] 1.019 Urine Protein 30 H Urine Glucose (UA) 50 H Urine Ketones 20 H Urine Blood NEGATIVE Urine Nitrite NEGATIVE Ur Leukocyte Esterase NEGATIVE Urine WBC (Auto) 1 Impressions: Lumbar Spine MRI 05/03/19 20:29 IMPRESSION: Multiple levels of osseous metastases, as above. Degenerative disc disease at the L4-5 level resulting in moderate central canal stenosis. copyright 2010 [employer]- All Rights Reserved Assessment and Plan - Diagnosis (1) Back pain Qualifiers: Back pain location: low back pain Chronicity: acute Back pain laterality: bilateral Sciatica presence: with sciatica Sciatica laterality: bilateral sciatica Qualified Code(s): M54.42 - Lumbago with sciatica, left side; M54.41 - Lumbago with sciatica, right side Is this a current diagnosis for this admission?: Yes (2) Acute herniation of intervertebral disc Is this a current diagnosis for this admission?: Yes (3) Lumbar disc herniation with radiculopathy Is this a current diagnosis for this admission?: Yes (4) Diabetes mellitus type 2 in nonobese Is this a current diagnosis for this admission?: Yes (5) Colon cancer metastasized to bone Is this a current diagnosis for this admission?: Yes (6) Metastatic colon cancer to liver Is this a current diagnosis for this admission?: Yes (7) Tobacco use disorder, severe, dependence Is this a current diagnosis for this admission?: Yes (8) Urticaria Is this a current diagnosis for this admission?: Yes (9) Abdominal bloating Is this a current diagnosis for this admission?: Yes (10) Constipation Qualifiers: Constipation type: unspecified constipation type Qualified Code(s): K59.00 - Constipation, unspecified Is this a current diagnosis for this admission?: Yes (11) Hypercalcemia Is this a current diagnosis for this admission?: Yes (12) Liver mass Is this a current diagnosis for this admission?: Yes - Plan Summary Summary: Patient will be admitted to observation bed assignment status on the medical floor where he will receive routine supportive and symptomatic cares. His pain will be treated with morphine sulfate 2 to 4 mg IV every 2 hours on a sliding scale basis. Patient will be converted to an insulin (basal insulin plus short acting insulin) management plan for his diabetes as he will require numerous imaging studies that are made difficult by the use of metformin. Improved control of his diabetes will also be a therapeutic goal. He will be continued on a diabetic diet and before meals and at bedtime Accu-Cheks will be performed with sliding scale insulin for hyperglycemia and a hypoglycemic protocol in place. Patient will be discontinued from his usual diabetic medications of glipizide and metformin. A nicotine replacement patch is available for the patient's use, if desired. Smoking cessation is advised and counseled briefly at the bedside. Dr. Charles will be consulted for additional evaluation and treatment for the patient's metastatic colon cancer. He will use Benadryl 50 mg p.o. every 4 hours as needed for urticaria and hydroxyzine 50 mg IM every 6 hours as needed urticaria not resolved by Benadryl. Consideration for using doxepin for control of urticaria will be given if the patient's symptoms persist and are difficult to control with short term oral medications. - Time Time Spent with patient: 15-24 minutes Smoking Cessation Education: 3 to 10 minutes Medications reviewed and adjusted accordingly: Yes Anticipated discharge: Home with Homehealth - Inpatient Certification Based on my medical assessment, after consideration of the patient's comorbidities, presenting symptoms, or acuity I expect that the services needed warrant INPATIENT care.: No I certify that my determination is in accordance with my understanding of Medicare's requirements for reasonable and necessary INPATIENT services [42 CFR 412.3e].: No Medical Necessity: Need for Pain Control
[2019-05-04] MEDS: HEPARIN SOD (PORCINE) 5,000 UNIT/ML 1 ML VIAL SUBCUT SCH ×3 (05:35→21:17)
[2019-05-04] MEDS ORDERED: METHYLPREDNISOLONE INJ 40 MG/1 ML SDV IV SCH (06:00)
[2019-05-04] MEDS ORDERED: METFORMIN HCL 500 MG TABLET PO SCH (08:00)
[2019-05-04] MEDS: INSULIN REG, HUMAN 100 UNIT/ML 3 ML VIAL (PYX) SUBCUT SCH ×4 (08:00→21:22)
[2019-05-04] MEDS ORDERED: GLIPIZIDE 10 MG TABLET PO SCH (08:00)
--- NOTE | 2019-05-04 08:15 | PDOC CONSULTATION ---
Consultation Consult Date: 05/04/19 Attending physician:: BRENDA UMAÑA Provider Consulted: SONNY GUILLEN Consult reason:: Bone metastasis, severe pain, in the setting of metastatic carcinoma History of Present Illness Admission Date/PCP: 05/04/19 00:35 ROSARIO KRUEGER Patient complains of: Severe back pain, increasing abdominal distention History of Present Illness: ÁNGELA WANG JR is a 53 year old male with known history of metastatic c arcinoma with large liver lesion, cecal mass and other adenopathy, seemingly consistent with a colon cancer however the liver biopsy noted poorly differentiated carcinoma, hard to note that it was coming from a colon primary. He had seen general surgery as an outpatient and was being planned for a port and colonoscopy. He also had a PET/CT that was scheduled for this past Tuesday but unfortunately his blood sugar was too high. Over the last 48 hours prior to admission his back pain worsened and got to a point where he could not even stand, and almost fell. He called us and we instructed him to come to the ER. In the ER they did an MRI of the lumbar spine which indicated multiple levels of bone mets, interestingly the bone scan was negative, but there was also at the L4/5 area disc bulge. He has been on both morphine as well as Dilaudid, Dilaudid worked much better for him. He still having a lot of pain. In addition he has had increased abdominal distention, previously had paracentesis that was nondiagnostic, we are planning paracentesis now. I also discussed his case with general surgery, who is willing to consider him for port placement as well as colonoscopy. I believe colonoscopy would be important to confirm the cecal lesion, this would help confirm a stage IV colon cancer diagnosis. Ultimately, he may benefit from starting chemotherapy right away thereafter. Past Medical History Cardiac Medical History: Denies: Coronary Artery Disease, Hyperlipidema, Hypertension Pulmonary Medical History: Denies: Asthma, Chronic Obstructive Pulmonary Disease (COPD) EENT Medical History: Denies: Cataracts, Ears - Hearing aids Neurological Medical History: Denies: Hemorrhagic CVA, Ischemic CVA, Seizures Endocrine Medical History: Reports: Diabetes Mellitus Type 2 Denies: Diabetes Mellitus Type 1, Hyperthyroidism, Hypothyroidism, Obesity Renal/ Medical History: Denies: Chronic Kidney Disease, Nephrolithiasis Malignancy Medical History: Reports: Colorectal Cancer GI Medical History: Denies: Cirrhosis, Crohn's Disease, Hepatitis, Peptic Ulcer Disease, Ulcerative Colitis Musculoskeltal Medical History: Denies: Arthritis, Gout Skin Medical History: Denies: Eczema, Psoriasis Psychiatric Medical History: Reports: Tobacco Dependency Denies: Alcohol Dependency, Substance Abuse Traumatic Medical History: Reports: None Hematology: Denies: Anemia, Bleeding Tendencies Infectious Medical History: Reports: None Past Surgical History Past Surgical History: Reports: Orthopedic Surgery Social History Information Source: Patient Lives with: Family Smoking Status: Current Every Day Smoker Cigarettes Packs Per Day: 1 Electronic Cigarette use?: No Number of Years Smokin Last Time Smoked: 05/03/19 Frequency of Alcohol Use: Occasional Hx Recreational Drug Use: No Drugs: None Hx Prescription Drug Abuse: No - Advance Directive Resuscitation Status: Full Code Family History Family History: DM Parental Family History Reviewed: Yes Children Family History Reviewed: Yes Sibling(s) Family History Reviewed.: Yes Medication/Allergy Home Medications: Glipizide [Glucotrol] 10 mg PO BID 04/18/19 Metformin HCl [Glucophage XR 500 mg Tablet] 1,000 mg PO BIDBS 04/18/19 Lactulose [Cephulac Syrup 20 gm/30 ml Udcup] 20 gm PO DAILY 30 Days #60 udc 04/22/19 Ondansetron HCl [Zofran 4 mg Tablet] 1 - 2 tab PO Q4H PRN #20 tablet 04/22/19 Allergies/Adverse Reactions: No Known Allergies Allergy (Verified 04/18/19 18:20) Review of Systems Constitutional: ABSENT: chills, fever(s), headache(s), weight gain, weight loss Eyes: ABSENT: visual disturbances Ears: ABSENT: hearing changes Cardiovascular: ABSENT: chest pain, dyspnea on exertion, edema, orthropnea, palpitations Respiratory: ABSENT: cough, hemoptysis Gastrointestinal: ABSENT: abdominal pain, constipation, diarrhea, hematemesis, hematochezia, nausea, vomiting Genitourinary: ABSENT: dysuria, hematuria Musculoskeletal: ABSENT: joint swelling Integumentary: ABSENT: rash, wounds Neurological: ABSENT: abnormal gait, abnormal speech, confusion, dizziness, focal weakness, syncope Psychiatric: ABSENT: anxiety, depression, homidical ideation, suicidal ideation Endocrine: ABSENT: cold intolerance, heat intolerance, polydipsia, polyuria Hematologic/Lymphatic: ABSENT: easy bleeding, easy bruising Physical Exam Vital Signs: Temp Pulse Resp BP Pulse Ox 97.3 F 95 20 130/86 H 97 05/04/19 03:19 05/04/19 07:00 05/04/19 03:19 05/04/19 03:19 05/04/19 03:19 Intake & Output 05/03/19 05/04/19 05/05/19 06:59 06:59 06:59 Intake Total 1000 Balance 1000 Weight 97.7 kg General appearance: PRESENT: no acute distress, well-developed, well-nourished Head exam: PRESENT: atraumatic, normocephalic Eye exam: PRESENT: conjunctiva pink, EOMI, PERRLA. ABSENT: scleral icterus Ear exam: PRESENT: normal external ear exam Mouth exam: PRESENT: moist, tongue midline Neck exam: ABSENT: carotid bruit, JVD, lymphadenopathy, thyromegaly Respiratory exam: PRESENT: clear to auscultation jamar. ABSENT: rales, rhonchi, wheezes Cardiovascular exam: PRESENT: RRR. ABSENT: diastolic murmur, rubs, systolic murmur Pulses: PRESENT: normal dorsalis pedis pul Vascular exam: PRESENT: normal capillary refill GI/Abdominal exam: PRESENT: normal bowel sounds, soft. ABSENT: distended, guarding, mass, organolmegaly, rebound, tenderness Rectal exam: PRESENT: deferred Extremities exam: PRESENT: full ROM. ABSENT: calf tenderness, clubbing, pedal edema Neurological exam: PRESENT: alert, awake, oriented to person, oriented to place, oriented to time, oriented to situation, CN II-XII grossly intact. ABSENT: motor sensory deficit Psychiatric exam: PRESENT: appropriate affect, normal mood. ABSENT: homicidal ideation, suicidal ideation Skin exam: PRESENT: dry, intact, warm. ABSENT: cyanosis, rash Results Laboratory Results: 05/03/19 16:16 05/03/19 16:16 05/03/19 05/03/19 05/03/19 16:16 16:16 17:20 WBC 10.2 RBC 4.72 Hgb 14.6 Hct 42.3 MCV 90 MCH 31.0 MCHC 34.6 RDW 15.2 H Plt Count 212 Seg Neutrophils % 79.1 H Sodium 130.5 L Potassium 4.6 Chloride 92 L Carbon Dioxide 27 Anion Gap 12 BUN 13 Creatinine 0.55 Est GFR ( Amer) > 60 Glucose 185 H Calcium 11.9 H Total Bilirubin 1.7 H AST 47 Alkaline Phosphatase 116 Total Protein 6.7 Albumin 3.5 Urine Color ALLYN Urine Appearance CLEAR Urine pH 5.0 Ur Specific [place] 1.019 Urine Protein 30 H Urine Glucose (UA) 50 H Urine Ketones 20 H Urine Blood NEGATIVE Urine Nitrite NEGATIVE Ur Leukocyte Esterase NEGATIVE Urine WBC (Auto) 1 Impressions: Lumbar Spine MRI 05/03/19 20:29 IMPRESSION: Multiple levels of osseous metastases, as above. Degenerative disc disease at the L4-5 level resulting in moderate central canal stenosis. 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 Once that is completed and we get his pain under control, maybe we can get his chemotherapy started as an inpatient. (2) Bony metastasis Is this a current diagnosis for this admission?: Yes Plan: Causing severe pain, I will start him on oral OxyContin and change his IV morphine to Dilaudid. (3) Ascites Qualifiers: Ascites type: malignant Qualified Code(s): R18.0 - Malignant ascites Is this a current diagnosis for this admission?: Yes Plan: Likely malignant ascites but patient does have some element of cirrhosis. Plan for paracentesis today. - Time Time Spent: Greater than 70 Minutes - Inpatient Certification Based on my medical assessment, after consideration of the patient's comorbidities, presenting symptoms, or acuity I expect that the services needed warrant INPATIENT care.: Yes I certify that my determination is in accordance with my understanding of Medicare's requirements for reasonable and necessary INPATIENT services [42 CFR 412.3e].: Yes Medical Necessity: Need For IV Fluids, Need for Pain Control, Need for Surgery, Risk of Complication if Not Cared For in Hospital
[2019-05-04] MEDS: HYDROMORPHONE HCL INJ/PF 2 MG/ML AMPULE IV PRN ×2 (09:13→16:32)
--- NOTE | 2019-05-04 09:37 | Progress Note ---
Provider Note Provider Note: 05/04/2019-patient admitted early a.m. discussed with Dr. Anat shultz in the room will obtain ultrasound-guided paracentesis and the fluid for cell count culture. Normal saline 100 mL an hour. Patient will be prepped with GoLYTELY for in a.m. colonoscopy. Will follow
[2019-05-04 10:17] LABS: PROTHROMBIN TIME 14.2 SEC (11.4-15.4)
[2019-05-04 10:18] LABS: PARTIAL THROMBOPLASTIN TIME 27.3 SEC (23.5-35.8)
--- NOTE | 2019-05-04 15:11 | RADIOLOGY REPORT (SQ) ---
EXAM DESCRIPTION: U/S ABD PARACENTESIS COMPLETED DATE/TIME: 05/04/2019 2:23 pm REASON FOR STUDY: ascites COMPARISON None. LIMITATIONS: None. PROCEDURE: The procedure, risks, benefits, and alternatives were discussed with the patient and the patient's family who then gave written consent. The right lower quadrant was then marked utilizing sonographic guidance and a time-out was performed to document correct marking verification. The area around the selected percutaneous access site was then prepped and draped with 2% chlorhexidi ne utilizing standard sterile technique. After that, the selected access site was infiltrated with 5 ml of 1% lidocaine. A 5 English Urly-E-Etxwogdl catheter was then introduced into the fluid-filled p eritoneal cavity and the fluid was aspirated. After the fluid was aspirated, the catheter was removed and the entry site was covered with a sterile bandage. No immediate complications were noted. Volume of Fluid: 6,000 mL. Quality of the Fluid: Straw colored. Was the fluid collected for analysis? Yes. Images acquired during the procedure were submitted to PACS. The patient tolerated the procedure with local anesthesia. At the end of the procedure the patient's condition was unchanged from the preprocedural baseline. Documentation of thmg-sk-hjzm time the proceduralist spent monitoring the patient: 15 minutes. IMPRESSION: Successful ultrasound-guided paracentesis. COMMENT: Patient medication list reviewed: Yes- Quality ID# [id number]:Eligible professional attests to doc umenting in the medical record they obtained, updated, or reviewed the patient's current medications. TECHNICAL DOCUMENTATION: JOB ID: [id number] [employer]- All Rights Reserved Reading location - IP/workstation name: [email or web address]
[2019-05-04] MEDS ORDERED: GLUCAGON,HUMAN RECOMB 1 MG INJ SUBCUT PRN (15:12)
[2019-05-04 15:27] LABS: FLUID APPEARANCE SLIGHTLY HAZY; FLUID COLOR YELLOW; FLUID SOURCE ASCITES; FLUID TYPE PERITONEAL; FLUID VISCOSITY LIQUID
[2019-05-04] MEDS ORDERED: BISACODYL 5 MG TABEC PO ONE (16:00)
[2019-05-04] MEDS ORDERED: PEG 3350/NA SULF,BICARB,CL/KCL 4000 ML PO ONE (16:00)
--- NOTE | 2019-05-04 16:18 | PDOC CONSULTATION ---
Consultation Consult Date: 05/04/19 Provider Consulted: MUKUL BAZZI History of Present Illness Admission Date/PCP: 05/04/19 00:35 ROSARIO KRUEGER Patient complains of: Need of colonoscopy History of Present Illness: ÁNGELA WANG JR is a 53 year old male history of metastatic carcinoma with large liver lesion, cecal mass and other adenopathy, seemingly consistent with a colon cancer however the liver biopsy noted poorly differentiated carcinoma, hard to note that it was coming from a colon primary. He had seen general surgery as an outpatient and was being planned for a port and colonoscopy; however the patient was admitted yesterday for severe back pain. MRI of the back was done revealing multiple metastatic lesions. I was consulted to evaluate the patient for colonoscopy tomorrow. He has been approached by having a Port-A-Cath placed tomorrow. However, the patient is hesitant to have both procedures done once. Past Medical History Cardiac Medical History: Denies: Coronary Artery Disease, Hyperlipidema, Hypertension Pulmonary Medical History: Denies: Asthma, Chronic Obstructive Pulmonary Disease (COPD) EENT Medical History: Denies: Cataracts, Ears - Hearing aids Neurological Medical History: Denies: Hemorrhagic CVA, Ischemic CVA, Seizures Endocrine Medical History: Reports: Diabetes Mellitus Type 2 Denies: Diabetes Mellitus Type 1, Hyperthyroidism, Hypothyroidism, Obesity Renal/ Medical History: Denies: Chronic Kidney Disease, Nephrolithiasis Malignancy Medical History: Reports: Colorectal Cancer GI Medical History: Denies: Cirrhosis, Crohn's Disease, Hepatitis, Peptic Ulcer Disease, Ulcerative Colitis Musculoskeltal Medical History: Denies: Arthritis, Gout Skin Medical History: Denies: Eczema, Psoriasis Psychiatric Medical History: Reports: Tobacco Dependency Denies: Alcohol Dependency, Substance Abuse Traumatic Medical History: Reports: None Hematology: Denies: Anemia, Bleeding Tendencies Infectious Medical History: Reports: None Past Surgical History Past Surgical History: Reports: Orthopedic Surgery Social History Lives with: Family Smoking Status: Current Every Day Smoker Cigarettes Packs Per Day: 1 Electronic Cigarette use?: No Number of Years Smokin Last Time Smoked: 05/03/19 Frequency of Alcohol Use: Occasional Hx Recreational Drug Use: No Drugs: None Hx Prescription Drug Abuse: No - Advance Directive Resuscitation Status: Full Code Family History Family History: DM Parental Family History Reviewed: No Children Family History Reviewed: No Sibling(s) Family History Reviewed.: No Medication/Allergy Home Medications: Glipizide [Glucotrol] 10 mg PO BID 04/18/19 Lactulose [Cephulac Syrup 20 gm/30 ml Udcup] 20 gm PO DAILY 30 Days #60 udc 1 06/23/18 Bupropion HCl [Wellbutrin Sr 150 mg Tablet] 1 tab PO Q12 05/04/19 Multivitamin [Tab-A-Apolinar (Multiple Vitamin) Tablet] 1 tab PO DAILY 05/04/19 Ondansetron [Zofran Odt 4 mg Tablet] 8 mg PO Q8HP PRN 05/04/19 Oxycodone HCl/Acetaminophen [Percocet 5-325 mg Tablet] 1 tab PO Q6HP PRN 05/04/19 Semaglutide [Ozempic] 1 mg SQ .WEEKLY 05/04/19 Allergies/Adverse Reactions: No Known Allergies Allergy (Verified 04/18/19 18:20) Physical Exam Vital Signs: Temp Pulse Resp BP Pulse Ox 97.5 F 102 H 18 119/84 96 05/04/19 12:04 05/04/19 12:04 05/04/19 12:04 05/04/19 12:04 05/04/19 12:04 Intake & Output 05/03/19 05/04/19 05/05/19 06:59 06:59 06:59 Intake Total 1000 0 Balance 1000 0 Weight 97.7 kg General appearance: PRESENT: mild distress, thin Head exam: PRESENT: atraumatic Eye exam: PRESENT: EOMI Mouth exam: PRESENT: neck supple Neck exam: PRESENT: full ROM Respiratory exam: PRESENT: clear to auscultation jamar Cardiovascular exam: PRESENT: RRR GI/Abdominal exam: PRESENT: distended, soft Extremities exam: PRESENT: full ROM Musculoskeletal exam: PRESENT: full ROM Neurological exam: PRESENT: alert, awake Psychiatric exam: PRESENT: agitated, anxious, unusual affect Skin exam: PRESENT: warm Results Laboratory Results: 05/03/19 16:16 05/03/19 16:16 05/03/19 05/03/19 05/03/19 16:16 16:16 17:20 WBC 10.2 RBC 4.72 Hgb 14.6 Hct 42.3 MCV 90 MCH 31.0 MCHC 34.6 RDW 15.2 H Plt Count 212 Seg Neutrophils % 79.1 H Sodium 130.5 L Potassium 4.6 Chloride 92 L Carbon Dioxide 27 Anion Gap 12 BUN 13 Creatinine 0.55 Est GFR ( Amer) > 60 Glucose 185 H Calcium 11.9 H Total Bilirubin 1.7 H AST 47 Alkaline Phosphatase 116 Total Protein 6.7 Albumin 3.5 Urine Color ALLYN Urine Appearance CLEAR Urine pH 5.0 Ur Specific [place] 1.019 Urine Protein 30 H Urine Glucose (UA) 50 H Urine Ketones 20 H Urine Blood NEGATIVE Urine Nitrite NEGATIVE Ur Leukocyte Esterase NEGATIVE Urine WBC (Auto) 1 Impressions: Lumbar Spine MRI 05/03/19 20:29 IMPRESSION: Multiple levels of osseous metastases, as above. Degenerative disc disease at the L4-5 level resulting in moderate central canal stenosis. copyright 2010 [employer]- All Rights Reserved Assessment & Plan - Diagnosis (1) Bony metastasis Is this a current diagnosis for this admission?: Yes (2) Metastatic colon cancer to liver Is this a current diagnosis for this admission?: Yes - Plan Summary Plan Summary: Specimen: Cecal mass Possible metastatic colon cancer to bones as per recent MRI of the back demonstrating multiple lytic lesions of the vertebral bodies Post metastatic colon cancer to liver Need of colonoscopy to obtain biopsy of cecal mass Needle of Port-A-Cath placement for chemotherapy Plan: Plan colonoscopy with biopsy tomorrow, possible Port-A-Cath placement. Procedure, risks, benefits, applications, alternatives discussed with the patient, he understands all the above, his questions answered, and he decides to proceed. Clear liquid diet GoLYTELY prep this afternoon Dulcolax 40 mg p.o. x1 due to bowel prep N.p.o. after midnight IV fluids
[2019-05-04] MEDS: OXYCODONE HCL SR 10 MG TABLET PO SCH ×2 (16:50→21:22)
[2019-05-04] MEDS: DOCUSATE SODIUM 100 MG CAPSULE PO SCH ×2 (16:50→17:51)
[2019-05-04] MEDS: FAMOTIDINE 20 MG TABLET PO SCH ×2 (16:54→21:23)
[2019-05-04] MEDS: INSULIN GLARGINE,HUM.REC.ANLOG 1,000 UNIT/10 ML VIAL SUBCUT SCH ×2 (16:56→17:50)
[2019-05-04] MEDS: DEXAMETHASONE 4 MG TABLET PO SCH (17:51)
[2019-05-04] MEDS: NORMAL SALINE 1000 ML 1,000 ML IV PRN (21:21)
[2019-05-05] MEDS: HYDROMORPHONE HCL INJ/PF 2 MG/ML AMPULE IV PRN ×4 (00:23→17:03)
[2019-05-05] MEDS: HEPARIN SOD (PORCINE) 5,000 UNIT/ML 1 ML VIAL SUBCUT SCH ×2 (05:00→13:34)
[2019-05-05 07:23] LABS: HEMATOCRIT 37.6 % (37.9-51.0); MEAN CORPUSCULAR HEMOGLOBIN 30.7 pg (27.0-33.4); MEAN CORPUSCULAR HGB CONC 34.5 g/dL (32.0-36.0); MEAN CORPUSCULAR VOLUME 89 fl (80-97); PLATELET COUNT 172 10^3/uL (150-450); RED BLOOD COUNT 4.23 10^6/uL (4.35-5.55); RED CELL DISTRIBUTION WIDTH 14.9 % (11.5-14.0); WHITE BLOOD COUNT 11.5 10^3/uL (4.0-10.5)
[2019-05-05] MEDS ORDERED: LIDOCAINE 1%/EPINEPHRINE INJ 20 ML VIAL ONE ×2 (07:40→09:24)
[2019-05-05 07:43] LABS: ANION GAP 9 (5-19); BLOOD UREA NITROGEN 12 mg/dL (7-20); CALCIUM 10.5 mg/dL (8.4-10.2); CARBON DIOXIDE 27 mmol/L (22-30); CHLORIDE 96 mmol/L (98-107); GLUCOSE 163 mg/dL (75-110); POTASSIUM 3.8 mmol/L (3.6-5.0)
[2019-05-05] MEDS ORDERED: FENTANYL CITRATE INJ/PF 100 MCG/2 ML AMPUL ONE (08:08)
[2019-05-05] MEDS ORDERED: KETAMINE HCL INJ 500 MG/10 ML VIAL ONE (08:08)
[2019-05-05] MEDS ORDERED: PROPOFOL INJ 200 MG/20 ML VIAL IV ONE (08:08)
[2019-05-05] MEDS ORDERED: MIDAZOLAM 2 MG/2 ML INJ ONE (08:08)
[2019-05-05] MEDS: INSULIN REG, HUMAN 100 UNIT/ML 3 ML VIAL (PYX) SUBCUT SCH ×4 (08:12→21:43)
[2019-05-05] MEDS ORDERED: CEFAZOLIN INJ 1 GM VIAL ONE (08:59)
[2019-05-05] MEDS ORDERED: ONDANSETRON HCL INJ/PF 4 MG/2 ML SDV IV PRN (09:16)
[2019-05-05] MEDS ORDERED: PROMETHAZINE HCL INJ 25 MG/1 ML VIAL IV PRN ×2 (09:16)
[2019-05-05] MEDS ORDERED: OXYCODONE-ACETAMINOPHEN 5-325 MG TABLET PO PRN ×2 (09:16)
[2019-05-05] MEDS ORDERED: FENTANYL CITRATE INJ/PF 100 MCG/2 ML AMPUL IV PRN ×3 (09:16)
[2019-05-05] MEDS ORDERED: MORPHINE SULFATE 10 MG/ML INJ IV PRN (09:16)
[2019-05-05] MEDS ORDERED: MEPERIDINE HCL/PF INJ 25 MG/1 ML DISP.SYRIN IV PRN (09:16)
[2019-05-05] MEDS ORDERED: DIPHENHYDRAMINE HCL 50 MG/ML VIAL IV PRN (09:16)
[2019-05-05] MEDS: FAMOTIDINE 20 MG TABLET PO SCH ×2 (10:59→21:08)
[2019-05-05] MEDS: DOCUSATE SODIUM 100 MG CAPSULE PO SCH ×2 (10:59→17:04)
[2019-05-05] MEDS: INSULIN GLARGINE,HUM.REC.ANLOG 1,000 UNIT/10 ML VIAL SUBCUT SCH ×2 (11:00→17:03)
--- NOTE | 2019-05-05 11:02 | Operative Report ---
Operative Report DATE OF SURGERY: 05/05/19 PREOPERATIVE DIAGNOSIS: Metastatic adenocarcinoma unknown origin POSTOPERATIVE DIAGNOSIS: same OPERATION: 1) Right IJ Portacath placement. 2) Negative Colonoscopy to cecum SURGEON: MUKUL BAZZI ANESTHESIA: LMAC TISSUE REMOVED OR ALTERED: n/a COMPLICATIONS: none ESTIMATED BLOOD LOSS: <5 mL INTRAOPERATIVE FINDINGS: Normal colonoscopy to cecum PROCEDURE: The procedure was done in the operating room, the patient was placed in supine position, both sides of the chest and neck were prepped and draped in usual fashion. The right side of the neck were approached, the apex of the anterior sternocleidomastoid muscle triangle was infiltrated with local anesthetic, a 21- gauge needle was used to easily identify the internal jugular vein under ultrasound guidance, this was removed and replaced by a 16-gauge needle which cannulated the internal jugular vein without difficulty with good blood return. A guidewire was inserted through the needle into the internal jugular vein after superior vena cava. Fluoroscopy was obtained to confirm good position of the guidewire. After this, the right upper chest was appropriate marked just 2 fingerbreadths below the mid-clavicle, the area was infiltrated with lidocaine and infiltration was continued upward along the planned subcutaneous tunnel of the catheter up to the guidewire insertion point. An incision was made in the chosen placement area of the Port-A-Cath, a subcutaneous pocket down to fascia was developed with blunt finger dissection, the Port-A-Cath was secured to the catheter, and tied down to the pectoralis major muscle fascia with 2 simple 2-0 Prolene sutures. The catheter was then tunneled subcutaneously from the Port-A-Cath subcutaneous pocket up to the guidewire insertion point, making a gentle curve, and extracted at the insertion point of the guidewire. Under fluoroscopy the catheter was laid on the patient's chest and divided at the level of the junction superior vena cava with right atrium. A tissue dilator with sheath were inserted over the guidewire into the internal jugular vein, this was done without difficulty; the guidewire and the tunneler were removed and the catheter was inserted through the sheath without difficulty. The sheath was peeled out, good position of the catheter was confirmed by fluoroscopy with no kinking noted. The Port-A-Cath was accessed with a Guillaume needle, good blood return was obtained without difficulty, and it was flushed with heparinized solution. The insertion point to the guidewire was closed with a simple pursestring 4-0 Maxon subcuticular suture and covered with Dermabond. The Port-A-Cath pocket skin incision was closed with interrupted inverted simple 3-0 Vicryl sutures and the skin edges were approximated with 4-0 Vicryl running subcuticular suture with Dermabond. The colonoscopy was performed in surgery, the patient was placed in the lateral decubitus, and IV sedation was provided by the anesthesiologist. The scope was inserted into the rectum and the several segments of the colon up to the ce cum. Careful examination of the cecum was performed and no lesions were identified. The preparation was good: no masses, polyps, strictures, mucosal changes, and diverticula were noted. At the level of the rectum, the scope was retroflexed and no lesions were identified and no hemorrhoids seen. The scope was then slowly withdrawn from the cecum to rectum for a duration of approximately 15 minutes and extracted from the rectum. The patient tolerated the procedure well, transferred to the recovery room in satisfactory conditions, and a chest x-ray was obtained in the recovery room to confirm position of the line and rule out pneumothorax.
--- NOTE | 2019-05-05 11:04 | Progress Note ---
Provider Note Provider Note: General surgery Port-A-Cath inserted without difficulty Postop chest x-ray shows no pneumothorax and good position of the line Colonoscopy to cecum negative for masses or lesions. I will sign off please call us back with questions
--- NOTE | 2019-05-05 11:27 | RADIOLOGY REPORT (SQ) ---
EXAM DESCRIPTION: CHEST SINGLE VIEW COMPLETED DATE/TIME: 05/05/2019 11:07 am REASON FOR STUDY: s/p right portacath placement; r/o pneumothorax COMPARISON: Operative images from earlier. FINDINGS: Single-view chest AP portable upright for central line placement. Right IJ port in place, tip to the right atrium. No pneumothorax. TECHNICAL DOCUMENTATION: JOB ID: [id number] Reading location - IP/workstation name: [email or web address]
--- NOTE | 2019-05-05 11:35 | RADIOLOGY REPORT (SQ) ---
EXAM DESCRIPTION: FLUORO/CV PLACEMENT COMPLETED DATE/TIME: 05/05/2019 11:09 am REASON FOR STUDY: PORT PLACEMENT IN OR2 COMPARISON: None. FLUOROSCOPY TIME: 0.4 minutes 4 images saved to PACS. TECHNIQUE: Intra-operative images acquired during surgical procedure to evaluate progress. NUMBER OF IMAGES: 4 LIMITATIONS: None. FINDINGS: Intraoperative images reveal placement of right Port-A-Cath. Please correlate with operat selma note. IMPRESSION: IMAGE(S) OBTAINED DURING PROCEDURE. COMMENT: Quality ID [id number]: Final reports for procedures using fluoroscopy that document radiation exp osure indices, or exposure time and number of fluorographic images (if radiation exposure indices are not available) Please consult full operative report of the attending physician for description of the procedure. TECHNICAL DOCUMENTATION: JOB ID: [id number] [employer]- All Rights Reserved Reading location - IP/workstation name: [email or web address]
[2019-05-05] MEDS: NORMAL SALINE 1000 ML 1,000 ML IV PRN ×2 (12:20→18:56)
[2019-05-05] MEDS: DEXAMETHASONE 4 MG TABLET PO SCH (12:31)
--- NOTE | 2019-05-05 14:13 | PDOC PROGRESS REPORT ---
Subjective Progress Note for:: 05/05/19 Subjective:: Patient tolerated procedure well, But unfortunately there is no colonic source noted, we discussed next episode of staging would be both upper endoscopy as well as PET/CT. He has scheduled PET/CT on Tuesday, but needs sugars to be well controlled and under 150 prior to being able to get the PET. His pain is better. Reason For Visit: ACUTE HERNIATED NUCLEUS PULPOSUS OF LUMBER SPINE, Physical Exam Vital Signs: Temp Pulse Resp BP Pulse Ox 97.5 F 103 H 16 114/76 96 05/05/19 12:41 05/05/19 12:41 05/05/19 12:41 05/05/19 12:41 05/05/19 12:41 Intake & Output 05/04/19 05/05/19 05/06/19 06:59 06:59 06:59 Intake Total 1000 1450 1500 Output Total 10 Balance 1000 1450 1490 Weight 97.7 kg 90.9 kg General appearance: PRESENT: no acute distress, well-developed, well-nourished Head exam: PRESENT: atraumatic, normocephalic Eye exam: PRESENT: conjunctiva pink, EOMI, PERRLA. ABSENT: scleral icterus Ear exam: PRESENT: normal external ear exam Mouth exam: PRESENT: moist, tongue midline Neck exam: ABSENT: carotid bruit, JVD, lymphadenopathy, thyromegaly Respiratory exam: PRESENT: clear to auscultation jamar. ABSENT: rales, rhonchi, wheezes Cardiovascular exam: PRESENT: RRR. ABSENT: diastolic murmur, rubs, systolic murmur Pulses: PRESENT: normal dorsalis pedis pul Vascular exam: PRESENT: normal capillary refill GI/Abdominal exam: PRESENT: normal bowel sounds, soft. ABSENT: distended, guarding, mass, organolmegaly, rebound, tenderness Rectal exam: PRESENT: deferred Extremities exam: PRESENT: full ROM. ABSENT: calf tenderness, clubbing, pedal edema Neurological exam: PRESENT: alert, awake, oriented to person, oriented to place, oriented to time, oriented to situation, CN II-XII grossly intact. ABSENT: motor sensory deficit Psychiatric exam: PRESENT: appropriate affect, normal mood. ABSENT: homicidal ideation, suicidal ideation Skin exam: PRESENT: dry, intact, warm. ABSENT: cyanosis, rash Results Laboratory Results: 05/05/19 06:17 12/28/19 06:17 05/04/19 05/05/19 05/05/19 13:25 06:17 06:17 WBC 11.5 H RBC 4.23 L Hgb 13.0 L Hct 37.6 L MCV 89 MCH 30.7 MCHC 34.5 RDW 14.9 H Plt Count 172 Sodium 132.4 L Potassium 3.8 Chloride 96 L Carbon Dioxide 27 Anion Gap 9 BUN 12 Creatinine 0.50 L Est GFR ( Amer) > 60 Glucose 163 H Calcium 10.5 H Magnesium 1.7 Fluid Type PERITONEAL Fluid Source ASCITES Fluid Color YELLOW Fluid Appearance SLIGHTLY HAZY Fluid Viscosity LIQUID Fluid WBC 264 Fluid RBC 868 Impressions: Lumbar Spine MRI 05/03/19 20:29 IMPRESSION: Multiple levels of osseous metastases, as above. Degenerative disc disease at the L4-5 level resulting in moderate central canal stenosis. copyright 2010 [employer]- All Rights Reserved Paracentesis Ultrasound 05/04/19 00:00 IMPRESSION: Successful ultrasound-guided paracentesis. Guidance Fluoroscopy 05/05/19 08:00 IMPRESSION: IMAGE(S) OBTAINED DURING PROCEDURE. 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 We will plan for referral to [facility] as a second opinion as well. (2) Bony metastasis Is this a current diagnosis for this admission?: Yes Plan: I will discontinue oral steroids. I will initiate oral Dilaudid along with IV Dilaudid per pain scale to mimic a home dosing regimen. Continue with OxyContin. (3) Ascites Qualifiers: Ascites type: malignant Qualified Code(s): R18.0 - Malignant ascites Is this a current diagnosis for this admission?: Yes Plan: Status post paracentesis, he probably will need further paracentesis down the line. - Time Time Spent with patient: 35 or more minutes - Inpatient Certification Based on my medical assessment, after consideration of the patient's comorbidities, presenting symptoms, or acuity I expect that the services needed warrant INPATIENT care.: Yes I certify that my determination is in accordance with my understanding of Medicare's requirements for reasonable and necessary INPATIENT services [42 CFR 412.3e].: Yes Medical Necessity: Risk of Complication if Not Cared For in Hospital
--- NOTE | 2019-05-05 14:42 | PDOC PROGRESS REPORT ---
Subjective Progress Note for:: 05/05/19 Subjective:: Comfortable, status post Port-A-Cath and colonoscopy Reason For Visit: ACUTE HERNIATED NUCLEUS PULPOSUS OF LUMBER SPINE, Physical Exam Vital Signs: Temp Pulse Resp BP Pulse Ox 97.5 F 103 H 16 114/76 96 05/05/19 12:41 05/05/19 12:41 05/05/19 12:41 05/05/19 12:41 05/05/19 12:41 Intake & Output 05/04/19 05/05/19 05/06/19 06:59 06:59 06:59 Intake Total 1000 1450 1500 Output Total 10 Balance 1000 1450 1490 Weight 97.7 kg 90.9 kg General appearance: PRESENT: no acute distress GI/Abdominal exam: PRESENT: soft Results Laboratory Results: 05/05/19 06:17 05/05/19 06:17 05/04/19 05/05/19 05/05/19 13:25 06:17 06:17 WBC 11.5 H RBC 4.23 L Hgb 13.0 L Hct 37.6 L MCV 89 MCH 30.7 MCHC 34.5 RDW 14.9 H Plt Count 172 Sodium 132.4 L Potassium 3.8 Chloride 96 L Carbon Dioxide 27 Anion Gap 9 BUN 12 Creatinine 0.50 L Est GFR ( Amer) > 60 Glucose 163 H Calcium 10.5 H Magnesium 1.7 Fluid Type PERITONEAL Fluid Source ASCITES Fluid Color YELLOW Fluid Appearance SLIGHTLY HAZY Fluid Viscosity LIQUID Fluid WBC 264 Fluid RBC 868 Impressions: Lumbar Spine MRI 05/03/19 20:29 IMPRESSION: Multiple levels of osseous metastases, as above. Degenerative disc disease at the L4-5 level resulting in moderate central canal stenosis. copyright 2011 [employer]- All Rights Reserved Paracentesis Ultrasound 05/04/19 00:00 IMPRESSION: Successful ultrasound-guided paracentesis. Guidance Fluoroscopy 05/05/19 08:00 IMPRESSION: IMAGE(S) OBTAINED DURING PROCEDURE. Assessment & Plan - Diagnosis (1) Bony metastasis Is this a current diagnosis for this admission?: Yes (2) Metastatic colon cancer to liver Is this a current diagnosis for this admission?: Yes - Time Time Spent with patient: 15-24 minutes - Plan Summary Plan Summary: Assessment: Metastatic adenocarcinoma of unknown origin Multiple bone metastasis Negative colonoscopy to cecum done today Right IJ Port-A-Cath placed today I been requested to perform an EGD on this patient to work-up his adenocarcinoma of unknown origin Plan: EGD with biopsy tomorrow. Procedure, benefits, complications, alternatives, complications, explained to the patient, he understands all the above, his questions answered, and he decides to proceed
[2019-05-05] MEDS ORDERED: DEXTROSE 40% GEL 15 GM TUBE PO PRN (14:46)
[2019-05-05] MEDS ORDERED: DEXTROSE 50%-WATER 25 GM/50 ML DISP.SYRIN IV PRN (14:46)
[2019-05-05] MEDS: HYDROMORPHONE HCL 2 MG TABLET PO PRN (14:47)
[2019-05-05] MEDS: OXYCODONE HCL SR 10 MG TABLET PO SCH ×2 (14:47→21:08)
--- NOTE | 2019-05-05 21:30 | PDOC PROGRESS REPORT ---
Subjective Progress Note for:: 05/05/19 Subjective:: The patient is sitting in the chair eating lunch. He successfully underwent colonoscopy and Port-A-Cath placement earlier today. Reason For Visit: ACUTE HERNIATED NUCLEUS PULPOSUS OF LUMBER SPINE, Physical Exam Vital Signs: Temp Pulse Resp BP Pulse Ox 98.0 F 92 17 117/74 95 05/05/19 19:40 05/05/19 19:40 05/05/19 19:40 05/05/19 19:40 05/05/19 19:40 Intake & Output 05/04/19 05/05/19 05/06/19 06:59 06:59 06:59 Intake Total 1000 1450 2605 Output Total 10 Balance 1000 1450 2595 Weight 97.7 kg 90.9 kg 90.9 kg General appearance: PRESENT: no acute distress, cooperative, well-developed Head exam: PRESENT: atraumatic, normocephalic Eye exam: PRESENT: conjunctiva pink. ABSENT: scleral icterus Ear exam: PRESENT: normal external ear exam. ABSENT: bleeding, drainage Respiratory exam: PRESENT: clear to auscultation jamar, symmetrical, unlabored. ABSENT: rales, rhonchi, tachypnea, wheezes Cardiovascular exam: PRESENT: RRR, +S1, +S2 GI/Abdominal exam: PRESENT: distended, normal bowel sounds, soft. ABSENT: guarding, tenderness Rectal exam: PRESENT: deferred Extremities exam: ABSENT: pedal edema Musculoskeletal exam: PRESENT: ambulatory, full ROM, normal inspection Neurological exam: PRESENT: alert, awake, oriented to person, oriented to place, oriented to time, oriented to situation, CN II-XII grossly intact Psychiatric exam: PRESENT: appropriate affect. ABSENT: agitated, anxious Focused psych exam: ABSENT: delusional, restlessness Results Laboratory Results: 05/05/19 06:17 05/05/19 06:17 05/05/19 05/05/19 06:17 06:17 WBC 11.5 H RBC 4.23 L Hgb 13.0 L Hct 37.6 L MCV 89 MCH 30.7 MCHC 34.5 RDW 14.9 H Plt Count 172 Sodium 132.4 L Potassium 3.8 Chloride 96 L Carbon Dioxide 27 Anion Gap 9 BUN 12 Creatinine 0.50 L Est GFR ( Amer) > 60 Glucose 163 H Calcium 10.5 H Magnesium 1.7 Impressions: Lumbar Spine MRI 05/03/19 20:29 IMPRESSION: Multiple levels of osseous metastases, as above. Degenerative disc disease at the L4-5 level resulting in moderate central canal stenosis. copyright 2010 [employer]- All Rights Reserved Paracentesis Ultrasound 05/04/19 00:00 IMPRESSION: Successful ultrasound-guided paracentesis. Guidance Fluoroscopy 05/05/19 08:00 IMPRESSION: IMAGE(S) OBTAINED DURING PROCEDURE. Assessment and Plan - Diagnosis (1) Back pain Qualifiers: Back pain location: low back pain Chronicity: acute Back pain laterality: bilateral Sciatica presence: with sciatica Sciatica laterality: bilateral sciatica Qualified Code(s): M54.42 - Lumbago with sciatica, left side; M54.41 - Lumbago with sciatica, right side Is this a current diagnosis for this admission?: Yes Plan: 05/05/2019-the patient was found to have a ruptured intervertebral disc. Also noted were multiple bone metastases. The patient was initially given steroid therapy however this propelled his Accu-Cheks into the high 200s and low 300 range. He was also making the patient quite jittery. The steroids have been discontinued and the patient has been started on a pain regimen by Dr. Charles his oncologist. (2) Acute herniation of intervertebral disc Is this a current diagnosis for this admission?: Yes Plan: 05/05/2019-as above. No surgical intervention at this time. (3) Lumbar disc herniation with radiculopathy Is this a current diagnosis for this admission?: Yes Plan: 05/05/2019-the steroids do not have appeared to resolve the radiculopathy. More aggressive pain management at this time. (4) Diabetes mellitus type 2 in nonobese Is this a current diagnosis for this admission?: Yes Plan: 05/05/2019-I have increased the Lantus to 25 units twice daily. I do not want to increase the dose too much because now that the patient is no longer on [facility] steroids his glucose will decrease. He is n.p.o. again tonight for an endoscopy of the upper GI tract tomorrow. I will resume his glipizide when he is back on oral diet. He continues Accu-Cheks at meals and bedtime with sliding scale coverage. We need to get his glucose under 150 to allow for the PET scan. 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 (6) Metastatic colon cancer to liver Is this a current diagnosis for this admission?: Yes Plan: 05/05/2019-liver mass noted on imaging. As it was in the dome of the right lobe it was felt to be too close to the diaphragm for percutaneous biopsy (7) Tobacco use disorder, severe, dependence Is this a current diagnosis for this admission?: Yes Plan: 05/05/2019-nicotine patch (8) Ascites Qualifiers: Ascites type: malignant Qualified Code(s): R18.0 - Malignant ascites Is this a current diagnosis for this admission?: Yes Plan: 05/05/2019-over the last several days approximately 6 to 8 L of fluid has been removed by paracentesis. The patient has underlying cirrhosis and so this makes him even more prone to ascites. I will start Aldactone and gradually adjust the regimen to try and keep his ascites and check. I also explained that he may require fluid restriction. With successful treatment of the malignancy this may help to decrease fluid deposition in the abdomen. (9) Cirrhosis Qualifiers: Ascites presence: unspecified Is this a current diagnosis for this admission?: Yes Plan: 05/05/2019-the patient has a history of cirrhosis and with the metastatic diseas e in the liver and abdominal cavity he is going to experience increased ascites. We discussed the hope that with treatment of the malignancy and the use of diuretics and fluid restriction the possibility of keeping the ascites somewhat limited. He will likely need intermittent paracenteses on a chronic basis. (10) Hypercalcemia Is this a current diagnosis for this admission?: Yes Plan: 05/05/2019-possibly related to bony metastases. Will monitor with serial chemistries. - Plan Summary Summary: Patient will be admitted to observation bed assignment status on the medical floor where he will receive routine supportive and symptomatic cares. His pain will be treated with morphine sulfate 2 to 4 mg IV every 2 hours on a sliding scale basis. Patient will be converted to an insulin (basal insulin plus short acting insulin) management plan for his diabetes as he will require numerous imaging studies that are made difficult by the use of metformin. Improved control of his diabetes will also be a therapeutic goal. He will be continued on a diabetic diet and before meals and at bedtime Accu-Cheks will be performed with sliding scale insulin for hyperglycemia and a hypoglycemic protocol in place. Patient will be discontinued from his usual diabetic medications of glipizide and metformin. A nicotine replacement patch is available for the patient's use, if desired. Smoking cessation is advised and counseled briefly at the bedside. Dr. Charles will be consulted for additional evaluation and treatment for the patient's metastatic colon cancer. He will use Benadryl 50 mg p.o. every 4 hours as needed for urticaria and hydroxyzine 50 mg IM every 6 hours as needed urticaria not resolved by Benadryl. Consideration for using doxepin for control of urticaria will be given if the patient's symptoms persist and are difficult to control with short term oral medications. 05/05/2019-we will focus on getting the patient serum glucose under 150 so that he may be able to undergo PET scanning. Dr. Charles is managing his pain secondary to malignancy. I will add some medications to help with his ascites. - Time Time Spent with patient: 25-34 minutes Medications reviewed and adjusted accordingly: Yes Anticipated discharge: Home
[2019-05-05] MEDS: BUPROPION HCL 100 MG TABLET PO SCH (21:42)
[2019-05-06] MEDS: NORMAL SALINE 1000 ML 1,000 ML IV PRN (02:13)
[2019-05-06] MEDS: HYDROMORPHONE HCL INJ/PF 2 MG/ML AMPULE IV PRN ×4 (02:13→19:43)
[2019-05-06] MEDS: BUPROPION HCL 100 MG TABLET PO SCH ×3 (05:42→21:55)
[2019-05-06 06:44] LABS: ANION GAP 8 (5-19); BLOOD UREA NITROGEN 14 mg/dL (7-20); CALCIUM 11.1 mg/dL (8.4-10.2); CARBON DIOXIDE 27 mmol/L (22-30); CHLORIDE 101 mmol/L (98-107); GLUCOSE 140 mg/dL (75-110); POTASSIUM 3.9 mmol/L (3.6-5.0)
[2019-05-06] MEDS ORDERED: DIPHENHYDRAMINE HCL 50 MG/ML VIAL IV PRN (08:33)
[2019-05-06] MEDS ORDERED: INSULIN GLARGINE,HUM.REC.ANLOG 1,000 UNIT/10 ML VIAL (PYX) SUBCUT ONE (09:00)
[2019-05-06] MEDS ORDERED: FENTANYL CITRATE INJ/PF 100 MCG/2 ML AMPUL ONE (09:28)
[2019-05-06] MEDS ORDERED: MIDAZOLAM 2 MG/2 ML INJ ONE (09:28)
[2019-05-06] MEDS ORDERED: PROPOFOL INJ 200 MG/20 ML VIAL IV ONE (09:28)
--- NOTE | 2019-05-06 09:56 | Operative Report ---
Operative Report DATE OF SURGERY: 05/06/19 PREOPERATIVE DIAGNOSIS: Metastatic adenocarcinoma of unknown origin POSTOPERATIVE DIAGNOSIS: Same OPERATION: Negative EGD to the third portion of the duodenum SURGEON: MUKUL BAZZI ANESTHESIA: LMAC TISSUE REMOVED OR ALTERED: Not applicable COMPLICATIONS: None ESTIMATED BLOOD LOSS: Not applicable INTRAOPERATIVE FINDINGS: Normal EGD after the third portion of the duodenum PROCEDURE: The procedure was done in surgery, the patient was placed in a lateral decubitus on the surgical bed; IV sedation was provided by the anesthesiologist via MAC anesthesia, the endoscope was inserted into the mouth, esophagus, stomach, and first, second, and third portion of the duodenum. The preparation was good, and no masses, polyps, strictures, mucosal changes, or ulcerations were noted. The duodenum was [normal]. The scope was then slowly withdrawn into the stomach, retroflexed: the fundus and the GE junction appeared to be within the normal limits. The scope was slowly withdrawn into the esophagus which appeared to be normal and removed from the patient mouth without difficulty. The patient tolerated procedure well and transferred to the recovery room in satisfactory conditions.
--- NOTE | 2019-05-06 09:59 | Progress Note ---
Provider Note Provider Note: Patient is status post a negative EGD down to the third portion of duodenum Assessment: Negative EGD down to the third portion of duodenum for lesions causing the metastatic adenocarcinoma No other general surgery issues identified in this patient Plan: I will sign off. Please call us back if you have any additional questions.
[2019-05-06] MEDS ORDERED: INSULIN GLARGINE,HUM.REC.ANLOG 1,000 UNIT/10 ML VIAL SUBCUT ONE (10:00)
[2019-05-06] MEDS: INSULIN REG, HUMAN 100 UNIT/ML 3 ML VIAL (PYX) SUBCUT SCH ×4 (10:39→21:22)
[2019-05-06] MEDS: INSULIN GLARGINE,HUM.REC.ANLOG 1,000 UNIT/10 ML VIAL SUBCUT SCH ×2 (10:53→17:15)
[2019-05-06] MEDS: DOCUSATE SODIUM 100 MG CAPSULE PO SCH ×2 (11:02→17:38)
[2019-05-06] MEDS: FAMOTIDINE 20 MG TABLET PO SCH ×2 (11:03→21:58)
[2019-05-06] MEDS: OXYCODONE HCL SR 10 MG TABLET PO SCH ×3 (11:16→21:59)
--- NOTE | 2019-05-06 13:36 | PDOC PROGRESS REPORT ---
Subjective Progress Note for:: 05/06/19 Subjective:: Patient was just about to walk in the hallway. He returned to his room and sat down for this encounter. He is in good spirits. He is happy that the upper endoscopy was negative but questions where the primary lesion might be. His brother and son returned. He is currently eating his lunch as we speak. Reason For Visit: ACUTE HERNIATED NUCLEUS PULPOSUS OF LUMBER SPINE, Physical Exam Vital Signs: Temp Pulse Resp BP Pulse Ox 97.9 F 97 18 108/78 94 05/06/19 12:05 05/06/19 12:05 05/06/19 12:05 05/06/19 12:05 05/06/19 12:05 Intake & Output 05/05/19 05/06/19 05/07/19 06:59 06:59 06:59 Intake Total 1450 3515 500 Output Total 10 Balance 1450 3505 500 Weight 90.9 kg 90.9 kg General appearance: PRESENT: no acute distress, cooperative, well-developed, well-nourished Head exam: PRESENT: atraumatic, normocephalic Respiratory exam: PRESENT: decreased breath sounds - At bases, symmetrical, unlabored. ABSENT: rales, rhonchi, tachypnea, wheezes Cardiovascular exam: PRESENT: RRR, +S1, +S2 GI/Abdominal exam: PRESENT: ascites, distended, normal bowel sounds, soft. ABSENT: tenderness Rectal exam: PRESENT: deferred Neurological exam: PRESENT: alert, awake, oriented to person, oriented to place, oriented to time, oriented to situation, CN II-XII grossly intact Psychiatric exam: PRESENT: anxious - Regarding scheduled PET scan on Tuesday. ABSENT: agitated Results Laboratory Results: 05/05/19 06:17 05/06/19 05:36 05/06/19 05:36 Sodium 136.0 L Potassium 3.9 Chloride 101 Carbon Dioxide 27 Anion Gap 8 BUN 14 Creatinine 0.50 L Est GFR ( Amer) > 60 Glucose 140 H Calcium 11.1 H Magnesium 1.8 Albumin 3.0 L Impressions: Lumbar Spine MRI 05/03/19 20:29 IMPRESSION: Multiple levels of osseous metastases, as above. Degenerative disc disease at the L4-5 level resulting in moderate central canal stenosis. copyright 2011 [employer]- All Rights Reserved Paracentesis Ultrasound 05/04/19 00:00 IMPRESSION: Successful ultrasound-guided paracentesis. Guidance Fluoroscopy 05/05/19 08:00 IMPRESSION: IMAGE(S) OBTAINED DURING PROCEDURE. Assessment and Plan - Diagnosis (1) Back pain Qualifiers: Back pain location: low back pain Chronicity: acute Back pain laterality: bilateral Sciatica presence: with sciatica Sciatica laterality: bilateral sciatica Qualified Code(s): M54.42 - Lumbago with sciatica, left side; M54.41 - Lumbago with sciatica, right side Is this a current diagnosis for this admission?: Yes Plan: 05/05/2019-the patient was found to have a ruptured intervertebral disc. Also noted were multiple bone metastases. The patient was initially given steroid therapy however this propelled his Accu-Cheks into the high 200s and low 300 range. He was also making the patient quite jittery. The steroids have been discontinued and the patient has been started on a pain regimen by Dr. Melvin ruiz oncologist. 05/06/2019-the management of his overall pain is going to be handled by oncology. We will assist with pain management in the hospital. (2) Acute herniation of intervertebral disc Is this a current diagnosis for this admission?: Yes Plan: 05/05/2019-as above. No surgical intervention at this time. 05/06/2019-the herniated intervertebral disc is likely result of his metastatic no acute intervention at this time except for pain management. (3) Lumbar disc herniation with radiculopathy Is this a current diagnosis for this admission?: Yes Plan: 05/05/2019-the steroids do not have appeared to resolve the radiculopathy. More aggressive pain management at this time. 05/06/2019-the patient did receive steroids initially. The hyperglycemia and anxiety created with this medication was felt to be an adverse effects that we did not want to continue and so the steroids were discontinued. We will manage the patient's pain. It appears his radiculopathy has improved. (4) Diabetes mellitus type 2 in nonobese Is this a current diagnosis for this admission?: Yes Plan: 05/05/2019-I have increased the Lantus to 25 units twice daily. I do not want to increase the dose too much because now that the patient is no longer on systemic steroids his glucose will decrease. He is n.p.o. again tonight for an endoscopy of the upper GI tract tomorrow. I will resume his glipizide when he is back on oral diet. He continues Accu-Cheks at meals and bedtime with sliding scale coverage. We need to get his glucose under 150 to allow for the PET scan. 05/06/2019-the patient's serum glucoses were quite high yesterday. This was because he strayed from his diabetic diet since he was n.p.o. the day before because of his colonoscopy. We discussed at length the need for his glucose to be under control for the PET scan on Tuesday. The patient's Accu-Cheks are much better today. He will not need any additional insulin for sliding scale coverage. He has a strategy for his meals tomorrow night and Tuesday morning to ensure an appropriate glucose level. He does have his glucometer and so he will be able to check in the morning as well. 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 05/06/2019-I did have a discussion with the surgeon. The colonoscopy performed yesterday and the gastroscopy performed today revealed no lesions. The patient has an obvious lesion in the right lobe of the liver. He does have adenopathy. He does have metastatic lesions to the bone. Other sources will need to be examined for possible primary lesion. This includes breast tissue and possibly prostate. The PET scan should help identify suspicious areas as yet unknown detected. (6) Metastatic colon cancer to liver Is this a current diagnosis for this admission?: Yes Plan: 05/05/2019-liver mass noted on imaging. As it was in the dome of the right lobe it was felt to be too close to the diaphragm for percutaneous biopsy 05/05/2019-because there was no lesion identified during the colonoscopy, the patient has metastatic disease in the liver but the colon does not seem to be the primary area involved. Oncology will continue to investigate with additional tests including his PET scan on Tuesday (7) Tobacco use disorder, severe, dependence Is this a current diagnosis for this admission?: Yes Plan: 05/05/2019-nicotine patch 05/06/2019-the patient is adamant about no more smoking. By the time he discharged from the hospital all of the nicotine should be out of his system and this will be helpful with his tobacco cessation management. (8) Ascites Qualifiers: Ascites type: malignant Qualified Code(s): R18.0 - Malignant ascites Is this a current diagnosis for this admission?: Yes Plan: 05/05/2019-over the last several days approximately 6 to 8 L of fluid has been removed by paracentesis. The patient has underlying cirrhosis and so this makes him even more prone to ascites. I will start Aldactone and gradually adjust the regimen to try and keep his ascites and check. I also explained that he may require fluid restriction. With successful treatment of the malignancy this may help to decrease fluid deposition in the abdomen. 05/06/2019-we reviewed the fact that oncology will likely be helping the patient manage his ascites. This includes medications as well as intermittent paracenteses. He will discuss this further with oncology. (9) Cirrhosis Qualifiers: Ascites presence: unspecified Is this a current diagnosis for this admission?: Yes Plan: 05/05/2019-the patient has a history of cirrhosis and with the metastatic disease in the liver and abdominal cavity he is going to experience increased ascites. We discussed the hope that with treatment of the malignancy and the use of diuretics and fluid restriction the possibility of keeping the ascites somewhat limited. He will likely need intermittent paracenteses on a chronic basis. (10) Hypercalcemia Is this a current diagnosis for this admission?: Yes Plan: 05/05/2019-possibly related to bony metastases. Will monitor with serial chemistries. 05/06/2019-calcium is still slightly elevated. We will continue to monitor. - Plan Summary Summary: Patient will be admitted to observation bed assignment status on the medical floor where he will receive routine supportive and symptomatic cares. His pain will be treated with morphine sulfate 2 to 4 mg IV every 2 hours on a sliding scale basis. Patient will be converted to an insulin (basal insulin plus short acting insulin) management plan for his diabetes as he will require numerous imaging studies that are made difficult by the use of metformin. Improved control of his diabetes will also be a therapeutic goal. He will be continued on a diabetic diet and before meals and at bedtime Accu-Cheks will be performed with sliding scale insulin for hyperglycemia and a hypoglycemic protocol in place. Patient will be discontinued from his usual diabetic medications of glipizide and metformin. A nicotine replacement patch is available for the patient's use, if desired. Smoking cessation is advised and counseled briefly at the bedside. Dr. Charles will be consulted for additional evaluation and treatment for the patient's metastatic colon cancer. He will use Benadryl 50 mg p.o. every 4 hours as needed for urticaria and hydroxyzine 50 mg IM every 6 hours as needed urticaria not resolved by Benadryl. Consideration for using doxepin for control of urticaria will be given if the patient's symptoms persist and are difficult to control with short term oral medications. 05/05/2019-we will focus on getting the patient serum glucose under 150 so that he may be able to undergo PET scanning. Dr. Charles is managing his pain secondary to malignancy. I will add some medications to help with his ascites. - Time Time Spent with patient: 15-24 minutes Medications reviewed and adjusted accordingly: Yes Anticipated discharge: Home
[2019-05-06] MEDS: POLYETHYLENE GLYCOL 3350 POWDER 17 GM/1 PACKET PO SCH (14:14)
[2019-05-06] MEDS ORDERED: BISACODYL 5 MG TABEC PO ONE (16:00)
[2019-05-07] MEDS: HYDROMORPHONE HCL INJ/PF 2 MG/ML AMPULE IV PRN ×2 (00:13→04:34)
[2019-05-07] MEDS: BUPROPION HCL 100 MG TABLET PO SCH ×2 (05:07→14:54)
[2019-05-07] MEDS: INSULIN REG, HUMAN 100 UNIT/ML 3 ML VIAL (PYX) SUBCUT SCH ×2 (07:28→14:54)
[2019-05-07] MEDS: INSULIN GLARGINE,HUM.REC.ANLOG 1,000 UNIT/10 ML VIAL SUBCUT SCH (07:28)
--- NOTE | 2019-05-07 09:10 | PDOC PROGRESS REPORT ---
Subjective Progress Note for:: 05/07/19 Subjective:: Agree with DC home today, gave Rx for Dilaudid as needed as well as OxyContin scheduled Reason For Visit: ACUTE HERNIATED NUCLEUS PULPOSUS OF LUMBER SPINE, Physical Exam Vital Signs: Temp Pulse Resp BP Pulse Ox 97.7 F 93 17 110/64 95 05/07/19 07:11 05/07/19 07:11 05/07/19 07:11 05/07/19 07:11 05/07/19 07:11 Intake & Output 05/06/19 05/07/19 05/08/19 06:59 06:59 06:59 Intake Total 3515 2928 Output Total 10 Balance 3505 2928 Weight 90.9 kg General appearance: PRESENT: no acute distress, well-developed, well-nourished Head exam: PRESENT: atraumatic, normocephalic Eye exam: PRESENT: conjunctiva pink, EOMI, PERRLA. ABSENT: scleral icterus Ear exam: PRESENT: normal external ear exam Mouth exam: PRESENT: moist, tongue midline Neck exam: ABSENT: carotid bruit, JVD, lymphadenopathy, thyromegaly Respiratory exam: PRESENT: clear to auscultation jamar. ABSENT: rales, rhonchi, wheezes Cardiovascular exam: PRESENT: RRR. ABSENT: diastolic murmur, rubs, systolic murmur Pulses: PRESENT: normal dorsalis pedis pul Vascular exam: PRESENT: normal capillary refill GI/Abdominal exam: PRESENT: normal bowel sounds, soft. ABSENT: distended, guarding, mass, organolmegaly, rebound, tenderness Rectal exam: PRESENT: deferred Extremities exam: PRESENT: full ROM. ABSENT: calf tenderness, clubbing, pedal edema Neurological exam: PRESENT: alert, awake, oriented to person, oriented to place, oriented to time, oriented to situation, CN II-XII grossly intact. ABSENT: motor sensory deficit Psychiatric exam: PRESENT: appropriate affect, normal mood. ABSENT: homicidal ideation, suicidal ideation Skin exam: PRESENT: dry, intact, warm. ABSENT: cyanosis, rash Results Laboratory Results: 05/05/19 06:17 05/06/19 05:36 Impressions: Lumbar Spine MRI 05/03/19 20:29 IMPRESSION: Multiple levels of osseous metastases, as above. Degenerative disc disease at the L4-5 level resulting in moderate central canal stenosis. copyright 2010 [employer] [facility] [employer]- All Rights Reserved Paracentesis Ultrasound 05/04/19 00:00 IMPRESSION: Successful ultrasound-guided paracentesis. Guidance Fluoroscopy 05/05/19 08:00 IMPRESSION: IMAGE(S) OBTAINED DURING PROCEDURE. Assessment & Plan - Diagnosis (1) Colon cancer metastasized to bone Is this a current diagnosis for this admission?: Yes Plan: Carcinoma of unknown primary as of now, both colonoscopy and EGD are negative, still plan on outpatient referral to [facility] as well as consideration of chemotherapy soon. (2) Bony metastasis Is this a current diagnosis for this admission?: Yes Plan: Calcium level better will need bone modifying therapy as an outpatient (3) Ascites Qualifiers: Ascites type: malignant Qualified Code(s): R18.0 - Malignant ascites Is this a current diagnosis for this admission?: Yes Plan: Malignant, will recur, plan for paracentesis next week most likely - Time Time Spent with patient: 35 or more minutes
[2019-05-07] MEDS: OXYCODONE HCL SR 10 MG TABLET PO SCH (09:21)
[2019-05-07] MEDS: POLYETHYLENE GLYCOL 3350 POWDER 17 GM/1 PACKET PO SCH (09:21)
[2019-05-07] MEDS: DOCUSATE SODIUM 100 MG CAPSULE PO SCH (09:21)
[2019-05-07] MEDS: FAMOTIDINE 20 MG TABLET PO SCH (09:21)
[2019-05-07] MEDS: HYDROMORPHONE HCL 2 MG TABLET PO PRN (10:18)
--- NOTE | 2019-05-07 12:53 | PDOC DISCHARGE SUMMARY ---
Impression - Admit/DC Date/PCP Admission Date/Primary Care Provider: 05/05/19 06:43 ROSARIO KRUEGER Discharge Date: 05/07/19 - Discharge Diagnosis (1) Degenerative lumbar spinal stenosis Is this a current diagnosis for this admission?: Yes (2) Bulging lumbar disc Is this a current diagnosis for this admission?: Yes (3) Back pain Is this a current diagnosis for this admission?: Yes (4) Metastatic malignant neoplasm of unknown primary site Is this a current diagnosis for this admission?: Yes (5) Ascites Is this a current diagnosis for this admission?: Yes (6) Bony metastasis Is this a current diagnosis for this admission?: Yes (7) Cirrhosis Is this a current diagnosis for this admission?: Yes (8) Diabetes mellitus type 2 in nonobese Is this a current diagnosis for this admission?: Yes (9) Constipation Is this a current diagnosis for this admission?: Yes - Assessment Summary: Patient was evaluated for progressive low back pain with paresthesia in his legs. He has been hemodynamically stable throughout. Upon evaluation in the ER, lumbar MRI was done which revealed multiple levels of osseous metastasis, degenerative disc disease at the L4-L5 level resulting in moderate central canal stenosis as well as some disc bulging. Patient was subsequently started on steroids and narcotics for pain control. Patient also received some physical therapy. It was thought that patient's back pain was from this lesions as well as his spinal canal stenosis. Dr. Charles was consulted regarding patient's history of metastatic colon cancer. Of note, patient did have history of a cecal mass and noted lesions in his liver and had been found on prior evaluations to have poorly differentiated adenocarcinoma which is suspected to be primarily from the colon. Patient was evaluated by surgery and taken for colonoscopy as well as an EGD which found no evidence of masses on this admission. This leaves the primary source of patient's malignancy as unknown at this time but it is suspected that it is likely of GI origin. Patient is scheduled to get a PET scan done tomorrow for further evaluation and he will continue to follow with Dr. Charles. Patient has been given prescriptions for pain control for Dilaudid and OxyContin by Dr. Charles. Of note patient became very hyperglycemic during this hospitalization secondary to steroids and was treated with insulin. The steroids were later discontinued and as of this morning, patient blood sugars are back to normal range. Patient will be sent home on his regular dose of glipizide and Ozempic and has been given a renewal prescription for the glipizide for continued control of his diabetes mellitus type 2. Patient was also noted to have ascites and there is documented history of cirrhosis from previous provider during this admission. Paracentesis was done patient has been given instruction to have repeat paracentesis in a couple of weeks. Patient also prescribed bowel regimen for constipation from narcotic use. - Additional Information Resuscitation Status: Full Code Discharge Diet: As Tolerated Discharge Activity: Activity As Tolerated Referrals: KAMRON PERALES PA-C [[employer]IED HEALTH PROFESSIONAL] - 05/18/19 1:30 pm Prescriptions: Docusate Sodium [Colace 100 mg Capsule] 100 mg PO BID #60 capsule Glipizide [Glucotrol] 10 mg PO BID #14 Polyethylene Glycol 3350 [Miralax Powder 17 gm/Packet] 17 gm PO DAILY 30 Days powd.pack Ibuprofen [Motrin 800 mg Tablet] 800 mg PO Q6HP PRN #18 tablet PRN Reason: Nicotine [Nicoderm 21 mg/24 Hr Transderm Patch] 1 each TD DAILYP PRN #15 patch.td24 PRN Reason: Home Medications: Lactulose [Cephulac Syrup 20 gm/30 ml Udcup] 20 gm PO DAILY 30 Days #60 udc 04/22/19 Bupropion HCl [Wellbutrin Sr 150 mg Tablet] 1 tab PO Q12 05/04/19 Multivitamin [Tab-A-Apolinar (Multiple Vitamin) Tablet] 1 tab PO DAILY 05/04/19 Ondansetron [Zofran Odt 4 mg Tablet] 8 mg PO Q8HP PRN 05/04/19 Semaglutide [Ozempic] 1 mg SQ .WEEKLY 05/04/19 Docusate Sodium [Colace 100 mg Capsule] 100 mg PO BID #60 capsule 05/07/19 Glipizide [Glucotrol] 10 mg PO BID #14 05/07/19 Hydromorphone HCl [Dilaudid 2 mg Tablet] 4 mg PO Q4HP PRN tablet 05/07/19 Ibuprofen [Motrin 800 mg Tablet] 800 mg PO Q6HP PRN #18 tablet 05/07/19 Nicotine [Nicoderm 21 mg/24 Hr Transderm Patch] 1 each TD DAILYP PRN #15 patch.td24 05/07/19 Oxycodone HCl [Oxycontin Sr 10 mg Tablet] 20 mg PO Q12 tab.sr.12h 05/07/19 Polyethylene Glycol 3350 [Miralax Powder 17 gm/Packet] 17 gm PO DAILY 30 Days powd.pack 05/07/19 History of Present Illiness History of Present Illness: ÁNGELA WANG JR is a 53 year old male who presents the emergency room with a 2-day history of back pain. He admits a progressively worsening pain in his lower back with the gradual development of numbness in his bilateral anterior thighs over the course of the last 2 days. He describes the pain as severe, sharp and constant, worsened with movement and without radiation. He denies prior similar episodes. He denies other associated or accompanying signs and symptoms. He denies identification of any additional aggravating or ameliorating factors for his back pain. In the emergency room he was found to have a herniated nucleus pulposus in the L4-5 region with protrusion into the central canal. Additionally he was noted to have multiple areas of probable bony metastases of his known colon cancer. Patient was subsequently admitted to observation status for pain control and further evaluation and treatment as required. Physical Exam Vital Signs: Temp Pulse Resp BP Pulse Ox 98.3 F 105 H 17 124/80 98 05/07/19 11:07 05/07/19 11:07 05/07/19 07:11 05/07/19 11:07 05/07/19 11:07 Intake & Output 05/06/19 05/07/19 05/08/19 06:59 06:59 06:59 Intake Total 3515 2928 Output Total 10 Balance 3505 2928 Weight 90.9 kg General appearance: PRESENT: no acute distress, cooperative Respiratory exam: PRESENT: clear to auscultation jamar Cardiovascular exam: PRESENT: +S1, +S2 Neurological exam: PRESENT: alert, awake, oriented to person, oriented to place, oriented to time, oriented to situation Results Laboratory Results: WBC 11.5 10^3/uL (4.0-10.5) H 05/05/19 06:17 RBC 4.23 10^6/uL (4.35-5.55) L 05/05/19 06:17 Hgb 13.0 g/dL (13.5-17.0) L 05/05/19 06:17 Hct 37.6 % (37.9-51.0) L 05/05/19 06:17 MCV 89 fl (80-97) 05/05/19 06:17 MCH 30.7 pg (27.0-33.4) 05/05/19 06:17 MCHC 34.5 g/dL (32.0-36.0) 05/05/19 06:17 RDW 14.9 % (11.5-14.0) H 05/05/19 06:17 Plt Count 172 10^3/uL (150-450) 05/05/19 06:17 Lymph % (Auto) 11.3 % (13-45) L 05/03/19 16:16 Sutter % (Auto) 8.2 % (3-13) 05/03/19 16:16 Eos % (Auto) 0.9 % (0-6) 05/03/19 16:16 Baso % (Auto) 0.5 % (0-2) 05/03/19 16:16 Absolute Neuts (auto) 8.1 10^3/uL (1.7-8.2) 05/03/19 16:16 Absolute Lymphs (auto) 1.2 10^3/uL (0.5-4.7) 05/03/19 16:16 Absolute Monos (auto) 0.8 10^3/uL (0.1-1.4) 05/03/19 16:16 Absolute Eos (auto) 0.1 10^3/uL (0.0-0.6) 05/03/19 16:16 Absolute Basos (auto) 0.1 10^3/uL (0.0-0.2) 05/03/19 16:16 Seg Neutrophils % 79.1 % (42-78) H 05/03/19 16:16 PT 14.2 SEC (11.4-15.4) 05/04/19 09:55 INR 1.10 05/04/19 09:55 APTT 27.3 SEC (23.5-35.8) 05/04/19 09:55 Sodium 136.0 mmol/L (137-145) L 05/06/19 05:36 Potassium 3.9 mmol/L (3.6-5.0) 05/06/19 05:36 Chloride 101 mmol/L (98-107) 05/06/19 05:36 Carbon Dioxide 27 mmol/L (22-30) 05/06/19 05:36 Anion Gap 8 (5-19) 05/06/19 05:36 BUN 14 mg/dL (7-20) 05/06/19 05:36 Creatinine 0.50 mg/dL (0.52-1.25) L 05/06/19 05:36 Est GFR ( Amer) > 60 (>60) 05/06/19 05:36 Est GFR (MDRD) Non-Af > 60 (>60) 05/06/19 05:36 Glucose 140 mg/dL (75-110) H 05/06/19 05:36 POC Glucose 145 mg/dL (70-110) H 05/07/19 11:04 Hemoglobin A1c % 8.7 % (4.7-6.0) H 05/03/19 16:16 Calcium 11.1 mg/dL (8.4-10.2) H 05/06/19 05:36 Magnesium 1.8 mg/dL (1.6-2.3) 05/06/19 05:36 Total Bilirubin 1.7 mg/dL (0.2-1.3) H 05/03/19 16:16 Direct Bilirubin 0.8 mg/dL (0.0-0.4) H 05/03/19 16:16 Neonat Total Bilirubin Not Reportable 05/03/19 16:16 Neonat Direct Bilirubin Not Reportable 05/03/19 16:16 Neonat Indirect Bili Not Reportable 05/03/19 16:16 AST 47 U/L (17-59) 05/03/19 16:16 ALT 37 U/L (<50) 05/03/19 16:16 Alkaline Phosphatase 116 U/L (38-126) 05/03/19 16:16 Total Protein 6.7 g/dL (6.3-8.2) 05/03/19 16:16 Albumin 3.0 g/dL (3.5-5.0) L 05/06/19 05:36 Urine Color ALLYN 05/03/19 17:20 Urine Appearance CLEAR 05/03/19 17:20 Urine pH 5.0 (5.0-9.0) 05/03/19 17:20 Ur Specific Bowie 1.019 05/03/19 17:20 Urine Protein 30 mg/dL (NEGATIVE) H 05/03/19 17:20 Urine Glucose (UA) 50 mg/dL (NEGATIVE) H 05/03/19 17:20 Urine Ketones 20 mg/dL (NEGATIVE) H 05/03/19 17:20 Urine Blood NEGATIVE (NEGATIVE) 05/03/19 17:20 Urine Nitrite NEGATIVE (NEGATIVE) 05/03/19 17:20 Urine Bilirubin NEGATIVE (NEGATIVE) 05/03/19 17:20 Urine Urobilinogen 2.0 mg/dL (<2.0) H 05/03/19 17:20 Ur Leukocyte Esterase NEGATIVE (NEGATIVE) 05/03/19 17:20 Urine WBC (Auto) 1 /HPF 05/03/19 17:20 U Hyaline Cast (Auto) 3 /LPF 05/03/19 17:20 Urine Mucus (Auto) RARE /LPF 05/03/19 17:20 Urine Ascorbic Acid NEGATIVE (NEGATIVE) 05/03/19 17:20 Fluid Type PERITONEAL 05/04/19 13:25 Fluid Source ASCITES 05/04/19 13:25 Fluid Color YELLOW 05/04/19 13:25 Fluid Appearance SLIGHTLY HAZY 05/04/19 13:25 Fluid Viscosity LIQUID 05/04/19 13:25 Fluid WBC 264 /uL 05/04/19 13:25 Fluid RBC 868 /uL 05/04/19 13:25 Fluid Seg Neutrophils 10 % 05/04/19 13:25 Fluid Lymphocytes 80 % 05/04/19 13:25 Fluid Monocytes 10 % 05/04/19 13:25 Fluid Eosinophils 0 % 05/04/19 13:25 Fluid Basophils 0 % 05/04/19 13:25 Impressions: Lumbar Spine MRI 05/03/19 20:29 IMPRESSION: Multiple levels of osseous metastases, as above. Degenerative disc disease at the L4-5 level resulting in moderate central canal stenosis. copyright 2011 [employer]- All Rights Reserved Paracentesis Ultrasound 05/04/19 00:00 IMPRESSION: Successful ultrasound-guided paracentesis. Guidance Fluoroscopy 05/05/19 08:00 IMPRESSION: IMAGE(S) OBTAINED DURING PROCEDURE. Plan Time Spent: Greater than 30 Minutes Stroke Is this a Stroke Patient?: No Acute Heart Failure - Is this a Heart Failure Patient?: No
[2019-05-07 13:46] VITALS: BP 128/72
== END 2019-05-07 14:30 | disposition home or self-care (01) | DRG 552 ==
LOC: ER 12:02 → EH 05-04 00:35 → 3W 05-04 03:08 → OBSVTOIN 05-05 06:43 → 3W 05-06 02:00
PROVIDERS: ADMIT Hospitalist; ATTEND Hospitalist
PROC: 0W9G3ZX Drainage of Peritoneal Cavity, Percutaneous Approach, Diagnostic (ICD-10-PCS; principal; 2019-05-04)
PROC: 0DJD8ZZ Inspection of Lower Intestinal Tract, Via Natural or Artificial Opening Endoscopic (ICD-10-PCS; 2019-05-05)
PROC: 0DJ08ZZ Inspection of Upper Intestinal Tract, Via Natural or Artificial Opening Endoscopic (ICD-10-PCS; 2019-05-06)
PROC: 02HV33Z Insertion of Infusion Device into Superior Vena Cava, Percutaneous Approach (ICD-10-PCS; 2019-05-06)
PROC: B5181ZA Fluoroscopy of Superior Vena Cava using Low Osmolar Contrast, Guidance (ICD-10-PCS; 2019-05-06)
DX: M51.16 Intervertebral disc disorders with radiculopathy, lumbar region (principal); R18.0 Malignant ascites; C78.7 Secondary malignant neoplasm of liver and intrahepatic bile duct; C79.51 Secondary malignant neoplasm of bone; C80.1 Malignant (primary) neoplasm, unspecified; G89.3 Neoplasm related pain (acute) (chronic); K74.60 Unspecified cirrhosis of liver; K59.00 Constipation, unspecified; E83.52 Hypercalcemia; E11.65 Type 2 diabetes mellitus with hyperglycemia; R14.0 Abdominal distension (gaseous); F17.210 Nicotine dependence, cigarettes, uncomplicated; Z79.899 Other long term (current) drug therapy; Z79.84 Long term (current) use of oral hypoglycemic drugs; Z85.038 Personal history of other malignant neoplasm of large intestine; T38.0X5A Adverse effect of glucocorticoids and synthetic analogues, initial encounter; Y92.9 Unspecified place or not applicable; R20.2 Paresthesia of skin
CPT/HCPCS: 00532; 00731; 36415; 43235; 45378; 49083; 71045; 72158; 77001; 80048; 80053; 81001; 82040; 82962; 83036; 83735; 85025; 85027; 85610; 85730; 87070; 87075; 87205; 89050; 96361; 96374; 96375; 96376; 99284; A9576; C1752; C1788; G0378; J0690; J1170; J1200; J1642; J1644; J1815; J2250; J2270; J2704; J2920; J2930; J3010; J3490; J7030; J8540

== ENCOUNTER → 2019-05-08 | Outpatient (CLI) | payer OTHER ==
--- NOTE | 2019-05-08 16:44 | RADIOLOGY REPORT (SQ) ---
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 RADIONUCLIDE AND DOSE: 10.7 mCi F18 FDG The route of agent administration: Intravenous FASTING BLOOD SUGAR: 154 mg/dl CONTRAST TYPE AND DOSE: No CT contrast given. TECHNIQUE: Blood glucose level was verified. Above dose of FDG was injected intravenously. 2-D seg mented attenuation correction images were obtained from the base of the skull to the midthighs. Nonc ontrast CT images were obtained for attenuation correction and fusion with emission images. CT image s were performed without oral or intravenous contrast and are not sensitive for parenchymal lesions. A series of overlapping emission PET images were obtained. Images reviewed and manipulated at [facility] by the radiologist. Images stored on PACS. LIMITATIONS: None. FINDINGS: HEAD AND NECK: No areas of abnormal metabolic activity in the soft tissues of the head and neck. CHEST: Multifocal upper lobe predominant centrilobular nodular and ground-glass opacities bilaterally , not significantly changed from prior CT with mild heterogeneous uptake heterogeneous uptake through out the parenchyma, greatest within the left upper lobe (max SUV 2.4). Prevascular adenopathy with i ncreased FDG uptake. For reference there is a prevascular are node measuring 13 mm in short axis (se emily 3, image 81) (max SUV 3.9). There is a bile hypermetabolic hilar adenopathy, greatest on the ri ght (max SUV 5.9), delineation on CT difficult without intravenous contrast. There is a left interna l mammary hypermetabolic lymph node measuring 14 mm (series 3, image 88) (max SUV 4.8). Mildly hyper metabolic ill-defined nodule within the right diaphragmatic and cardiophrenic recess (series 3, image 114) (max SUV 2.5). ABDOMEN AND PELVIS: Background hepatic activity demonstrates max SUV of 3.1. There is heterogeneous area of hypoattenuation within the posterior right hepatic dome with heterogeneous increased uptake ( max SUV 5.8). There is diffuse mesenteric nodularity with heterogeneous ill-defined uptake. For ref erence right anterior abdominal mesenteric nodularity demonstrates SUV of 3.5 (series 3, image 156). There is ill-defined hypermetabolic portal caval and retroperitoneal adenopathy (max SUV range from 3.4-6.1). Expected physiologic activity noted within the gastrointestinal and genitourinary systems. PROXIMAL LOWER EXTREMITIES: No areas of abnormal metabolic activity in the soft tissues of the lower extremities. BONES: Background marrow activity (max SUV 2.0. There are focal areas of increased uptake correspond ing to previously seen osseous lesions. For reference there is a a lytic lesion in the L2 vertebral body demonstrating increased uptake (max SUV 4.9) (series 3, image 1 68). [address] CT FINDINGS: Multifocal centrilobular nodular and ground-glass opacities, similar to prior CT. Small bilateral pleural effusions, right greater than left. Right-sided chest port with cathet er tip at cavoatrial junction. Small pericardial effusion. Hypodense right hepatic lobe lesion as a calixto. Peritoneal stranding and nodularity with diffuse increased uptake as above. Moderate volume a scites. Cirrhotic hepatic morphology. Portacaval and retroperitoneal adenopathy. Lucent lesions, m ost conspicuous within the and L2 vertebral body. IMPRESSION: 1. Hypermetabolic posterior right hepatic dome mass with increased uptake (max SUV 5.8) compatible with known malignancy. 2. Hypermetabolic portal caval and retroperitoneal adenopathy as above and compatible with metastati c disease. 3. Diffuse peritoneal nodularity with heterogeneous uptake (max SUV 3.5) most compatible with perito saima carcinomatosis. Moderate volume ascites. 4. Mediastinal, bilateral hilar, internal mammary and cardiophrenic hypermetabolic adenopathy compat ible with intrathoracic metastatic disease. 5. Multifocal bilateral reticulonodular opacities throughout both lungs. Findings may represent infe ctious/ inflammatory etiology although lymphangitic metastatic disease is not excluded. TECHNICAL DOCUMENTATION: JOB ID: [id number] [employer]- All Rights Reserved Reading location - IP/workstation name: [email or web address]
== END ==
LOC: RAD 05-01 08:56
PROVIDERS: ATTEND Physician Assistant Medical
DX: C18.2 Malignant neoplasm of ascending colon (principal)
CPT/HCPCS: 78815; A9552

== ENCOUNTER 2019-05-18 11:37 | Day surgery (SDC) | payer OTHER ==
[~2019-05-18 11:37] MED LIST: NORMAL SALINE 500 ML IV PRN; ZOLEDRONIC ACID 4 MG/100 ML RTU IV PRN
[2019-05-18 12:22] LABS: HEMATOCRIT 39.7 % (37.9-51.0); HEMOGLOBIN 13.7 g/dL (13.5-17.0); MEAN CORPUSCULAR HEMOGLOBIN 31.1 pg (27.0-33.4); MEAN CORPUSCULAR HGB CONC 34.6 g/dL (32.0-36.0); MEAN CORPUSCULAR VOLUME 90 fl (80-97); PLATELET COUNT 168 10^3/uL (150-450); RED BLOOD COUNT 4.41 10^6/uL (4.35-5.55); RED CELL DISTRIBUTION WIDTH 14.1 % (11.5-14.0); WHITE BLOOD COUNT 10.5 10^3/uL (4.0-10.5)
[2019-05-18 12:33] LABS: INTERNATIONAL RATION (INR) 1.23; PROTHROMBIN TIME 15.6 SEC (11.4-15.4)
[2019-05-18 12:34] LABS: PARTIAL THROMBOPLASTIN TIME 31.2 SEC (23.5-35.8)
[2019-05-18 13:08] LABS: ALBUMIN 3.1 g/dL (3.5-5.0); ALKALINE PHOSPHATASE 120 U/L (38-126); ANION GAP 6 (5-19); ASPARTATE AMINO TRANSFERASE 65 U/L (17-59); BILIRUBIN,DIRECT 0.7 mg/dL (0.0-0.4); BILIRUBIN,TOTAL 1.2 mg/dL (0.2-1.3); BLOOD UREA NITROGEN 18 mg/dL (7-20); CARBON DIOXIDE 31 mmol/L (22-30); CHLORIDE 91 mmol/L (98-107); POTASSIUM 4.7 mmol/L (3.6-5.0); TOTAL PROTEIN 6.3 g/dL (6.3-8.2)
[2019-05-18 14:02] LABS: GLUCOSE 61 mg/dL (75-110)
[2019-05-18 14:03] LABS: CALCIUM 13.9 mg/dL (8.4-10.2)
--- NOTE | 2019-05-18 17:15 | RADIOLOGY REPORT (SQ) ---
EXAM DESCRIPTION: U/S ABD PARACENTESIS COMPLETED DATE/TIME: 05/18/2019 3:20 pm REASON FOR STUDY: ASCITES COMPARISON None. LIMITATIONS: None. PROCEDURE: The procedure, risks, benefits, and alternatives were discussed with the patient and the patient's family who then gave written consent. The right lower quadrant was then marked utilizing sonographic guidance and a time-out was performed to document correct marking verification. The area around the selected percutaneous access site was then prepped and draped with 2% chlorhexidi ne utilizing standard sterile technique. After that, the selected access site was infiltrated with 1 0 ml of 1% lidocaine. A 5 Irish Yqau-A-Wnlriiyu catheter was then introduced into the fluid-filled peritoneal cavity and the fluid was aspirated. After the fluid was aspirated, the catheter was remove d and the entry site was covered with a sterile bandage. No immediate complications were noted. Volume of Fluid: 6,000 mL. Quality of the Fluid: Straw-colored. Was the fluid collected for analysis? No. Images acquired during the procedure were submitted to PACS. The patient tolerated the procedure with local anesthesia. At the end of the procedure the patient's condition was unchanged from the preprocedural baseline. Documentation of [id number] time the proceduralist spent monitoring the patient: 15 minutes. IMPRESSION: Successful ultrasound-guided paracentesis. COMMENT: Patient medication list reviewed: Yes- Quality ID# [id number]:Eligible professional attests to doc umenting in the medical record they obtained, updated, or reviewed the patient's current medications. TECHNICAL DOCUMENTATION: JOB ID: [id number] [employer]- All Rights Reserved Reading location - IP/workstation name: [email or web address]
[2019-05-18 18:52] VITALS: BP 105/60
== END 2019-05-18 16:50 | disposition home or self-care (01) ==
LOC: RAD 11:37
PROVIDERS: ATTEND Internal Medicine
DX: C18.2 Malignant neoplasm of ascending colon (principal); C78.7 Secondary malignant neoplasm of liver and intrahepatic bile duct; K70.31 Alcoholic cirrhosis of liver with ascites; G89.3 Neoplasm related pain (acute) (chronic); B19.20 Unspecified viral hepatitis C without hepatic coma; Z79.84 Long term (current) use of oral hypoglycemic drugs; E11.9 Type 2 diabetes mellitus without complications
CPT/HCPCS: 36415; 85027; 85610; 85730; 80053; 49083; J3489; J1642

== ENCOUNTER → 2019-05-28 | Day surgery (SDC) | payer OTHER | LOC: RAD 09:30 | PROVIDERS: ATTEND Internal Medicine | DX: R18.8 Other ascites (principal) ==